=== PATIENT | female | born 1940 | race Caucasian/White ===

== ENCOUNTER 2017-07-26 07:48 | Inpatient (IN) | payer MEDICARE ==
[2017-07-26] VITALS (20 sets, daily range): BP systolic 99–154; BP diastolic 54–79; PULSE 53–91; RESP 11–25; TEMP 91.9–99.3; O2SAT 68–100
[~2017-07-26] VITALS: Ht 167.6 cm; Wt 54.8 kg
[~2017-07-26 07:48] MED LIST: SODIUM BICARBONATE 8.4% INJ 50 MEQ/50 ML SYR IV ONE
[2017-07-26] MEDS ORDERED: SODIUM CHLOR 0.9% 1000 ML INJ 1,000 ML IV SCH (08:14)
[2017-07-26] MEDS ORDERED: SODIUM CHLORIDE 0.9% FLUSH 5 ML FLUSH IV FLUSH PRN (08:15)
--- NOTE | 2017-07-26 08:24 | PD ---
HPI Chief Complaint: Respiratory Symptoms Time Seen by Provider: 07:58 Travel History International Travel<30 days: No Contact w/Intl Traveler<30days: No Traveled to known affect area: No History of Present Illness HPI Diagnoses a 76-year-old female history of dementia, hypertension, hyperlipidemia , coronary artery disease, COPD, presents from the alf with recurrent report of decreased level of consciousness. Per paramedics when they arrived the patient was lethargic and obtunded. They checked her vital signs and found her SPO2 to be 10%. They state they had a good waveform. The placed a nonrebreather on the patient and transported here. The patient is unable to give any history secondary to her dementia. She is obtunded and lethargic. There was no reported fevers or chills. There was no further history given. PFSH Past Medical History Depression: Yes COPD: Yes Coronary Artery Disease: Yes Dementia: Yes Hypertension: Yes Triglycerides - High: Yes Social History Alcohol Use: No Tobacco Use: No Substance Use: No Allergies-Medications (Allergen,Severity, Reaction): Coded Allergies: No Known Allergies (Verified , 07/26/17) Reported Meds & Prescriptions Reported Meds & Active Scripts Active Reported Zoloft (Sertraline HCl) 25 Mg Tab 25 Mg PO DAILY Spiriva Handihaler (Tiotropium Inh) 18 Mcg Cap 18 Mcg INH DAILY 1 capsule = 18 mcg [facility] ([employer] 3 Fatty Swskv-Mugfrx-Ojkcmsygts) 250-2.5-0.5 Mg Cap 1 Cap PO DAILY Cardizem CD 24 HR (Diltiazem CD 24 HR) 240 Mg Caper 240 Mg PO DAILY Aspir-81 (Aspirin) 81 Mg Tabdr 81 Mg PO DAILY Donepezil 10 Mg Tab 10 Mg PO HS Alprazolam 0.5 Mg Tab 0.5 Mg PO Q8H PRN Review of Systems ROS Limitations: Clinical Condition, Altered Mental Status Except as stated in HPI: all other systems reviewed are Neg (unable to obtain further history secondary to the patient's dementia history and obtundation.) Physical Exam Narrative GENERAL: Well-developed well-nourished patient in no acute respiratory distress. SKIN: Focused skin assessment warm/dry. HEAD: Atraumatic. Normocephalic. EYES: No scleral icterus. No injection or drainage. ENT: No nasal bleeding or discharge. Mucous membranes pink and moist. NECK: Trachea midline. Supple. CARDIOVASCULAR: Regular rate and rhythm. No murmur appreciated. RESPIRATORY: Breath sounds equal bilaterally. Auscultated Rales in the left lung field. GASTROINTESTINAL: Abdomen soft, non-tender, nondistended. Hepatic and splenic margins not palpable. MUSCULOSKELETAL: No obvious deformities. No clubbing. No cyanosis. No edema. NEUROLOGICAL: Lethargic and somewhat arousable.. No obvious cranial nerve deficits. Motor grossly within normal limits. Data Data Last Documented VS Vital Signs Date Time Temp Pulse Resp B/P (MAP) Pulse Ox O2 Delivery O2 Flow Rate FiO2 07/26/17 09:05 88 14 118/78 (91) 100 Ventilator 07/26/17 08:40 4.00 07/26/17 08:20 91.9 Orders Orders Complete Blood Count With Diff (07/26/17 08:14) Comprehensive Metabolic Panel (07/26/17 08:14) Creatine Kinase (Cpk) (07/26/17 08:14) Troponin I (07/26/17 08:14) Thyroid Stimulating Hormone (07/26/17 08:14) Urinalysis - C+S If Indicated (07/26/17 08:14) Lactic Acid Sepsis Protocol (07/26/17 08:14) Blood Culture (07/26/17 08:14) Chest, Single Ap (07/26/17 08:14) Blood Glucose (07/26/17 08:14) Ecg Monitoring (07/26/17 08:14) Iv Access Insert/Monitor (07/26/17 08:14) Oximetry (07/26/17 08:14) Sodium Chloride 0.9% Flush (Ns Flush) (07/26/17 08:15) Sodium Chlor 0.9% 1000 Ml Inj (Ns 1000 M (07/26/17 08:14) Ct Brain W/O Iv Contrast(Rout) (07/26/17 08:24) Arterial Blood Gas (Abg) (07/26/17 08:20) Etomidate Inj (Amidate Inj) (07/26/17 09:00) Succinylcholine Inj (Quelicin Inj) (07/26/17 09:00) Propofol 1000 Mg/100 Ml Inj (Diprivan 10 (07/26/17 09:00) ^ Infusion (07/26/17 08:46) RASS (07/26/17 08:46) Neurological Rass Scale SHALA.Q2H (07/26/17 08:46) Urine Culture (07/26/17 08:05) Chest, Single Ap (07/26/17 ) Piperacil-Tazo 4.5 Gm Premix (Zosyn 4.5 (07/26/17 08:58) Azithromycin Inj (Zithromax Inj) (07/26/17 08:58) Cath For Specimen (07/26/17 09:00) Warming [place] / Warming Syst PRN (07/26/17 09:00) Davey-Gastric Tube Insert/Mon (07/26/17 09:00) Restraints Non-Violent SHALA.Q3H (07/26/17 09:00) Admit Order (Ed Use Only) (07/26/17 09:48) Labs Laboratory Tests Test 07/26/17 08:05 07/26/17 08:20 White Blood Count 12.5 TH/MM3 Red Blood Count 4.72 MIL/MM3 Hemoglobin 14.4 GM/DL Hematocrit 46.1 % Mean Corpuscular Volume 97.6 FL Mean Corpuscular Hemoglobin 30.6 PG Mean Corpuscular Hemoglobin Concent 31.3 % Red Cell Distribution Width 15.6 % Platelet Count 312 TH/MM3 Mean Platelet Volume 8.7 FL Neutrophils (%) (Auto) 76.6 % Lymphocytes (%) (Auto) 11.7 % Monocytes (%) (Auto) 10.4 % Eosinophils (%) (Auto) 0.4 % Basophils (%) (Auto) 0.9 % Neutrophils # (Auto) 9.6 TH/MM3 Lymphocytes # (Auto) 1.5 TH/MM3 Monocytes # (Auto) 1.3 TH/MM3 Eosinophils # (Auto) 0.0 TH/MM3 Basophils # (Auto) 0.1 TH/MM3 CBC Comment DIFF FINAL Differential Comment Urine Color YELLOW Urine Turbidity HAZY Urine pH 5.5 Urine Specific [place] 1.018 Urine Protein 30 mg/dL Urine Glucose (UA) 300 mg/dL Urine Ketones NEG mg/dL Urine Occult Blood NEG Urine Nitrite NEG Urine Bilirubin NEG Urine Urobilinogen LESS THAN 2.0 MG/DL Urine Leukocyte Esterase MOD Urine RBC LESS THAN 1 /hpf Urine WBC 12 /hpf Urine WBC Clumps FEW Urine Squamous Epithelial Cells 1 /hpf Urine Transitional Epithelial Cells <1 /hpf Urine Amorphous Sediment FEW Urine Bacteria OCC /hpf Microscopic Urinalysis Comment CATH-CULTURE IND Blood Urea Nitrogen 27 MG/DL Creatinine 1.41 MG/DL Random Glucose 323 MG/DL Total Protein 7.8 GM/DL Albumin 3.4 GM/DL Calcium Level 8.8 MG/DL Alkaline Phosphatase 90 U/L Aspartate Amino Transf (AST/SGOT) 54 U/L Alanine Aminotransferase (ALT/SGPT) 40 U/L Total Bilirubin 0.4 MG/DL Sodium Level 137 MEQ/L Potassium Level 4.6 MEQ/L Chloride Level 99 MEQ/L Carbon Dioxide Level 25.5 MEQ/L Anion Gap 13 MEQ/L Estimat Glomerular Filtration Rate 36 ML/MIN Lactic Acid Level 5.6 mmol/L Total Creatine Kinase 91 U/L Troponin I 0.07 NG/ML Thyroid Stimulating Hormone 3rd Gen 1.530 uIU/ML Blood Gas Puncture Site LT RADIAL Blood Gas Patient Temperature 98.6 Blood Gas HCO3 32 mmol/L Blood Gas Base Excess 1.3 mmol/L Blood Gas Oxygen Saturation 92 % Arterial Blood pH 7.04 Arterial Blood Partial Pressure CO2 122 mmHg Arterial Blood Partial Pressure O2 95 mmHG Arterial Blood Oxygen Content 18.1 Vol % Arterial Blood Carboxyhemoglobin 0.8 % Arterial Blood Methemoglobin 0.7 % Blood Gas Hemoglobin 13.9 G/DL Oxygen Delivery Device NASAL CANNULA Blood Gas Liter Flow 4 L/M MDM Medical Decision Making Medical Screen Exam Complete: Yes Emergency Medical Condition: Yes Differential Diagnosis Sepsis versus pneumonia versus COPD versus pulmonary embolus versus intracranial injury Narrative Course 76-year-old female with history of dementia, hypertension, hyperlipidemia, COPD , presents from the alf with decreased level of consciousness. The patient was lethargic and obtunded. Report was her O2 saturation was 10 when paramedics arrived. They placed her on 100% nonrebreather. When she arrived here she was 98-99%. She was taken off the nonrebreather and placed on a nasal cannula. Blood gas reveals a pH of 7.041. PCO2 was 122 and PO2 was 94.5. Total temperature on arrival was 91.8. She is placed on a bear hugger. Warm IVD fluids were initiated. She was intubated secondary to her blood gas and clinical condition. She's been started on Zosyn and azithromycin. Her urinalysis shows evidence of a UTI and her chest x-ray shows probable pneumonia. Should be admitted to the intensive care unit. There is a call out to the photographic spotter. Critical Care Narrative Aggregate critical care time was 60 minutes. Time to perform other separately billable procedures was not included in the critical care time. My time did not include minutes spent treating any other patients simultaneously or on activities that did not directly contribute to the patient's treatment. The services I provided to this patient were to treat and/or prevent clinically significant deterioration that could result in: I provided critical care services requiring my management, as noted below: Chart data review, documentation time, medication orders and management, vital sign assessments/reviewing monitor data, ordering and reviewing lab tests, ordering and interpreting/reviewing x-rays and diagnostic studies, care of the patient and discussion of the patient with the admitting physicians. Procedures Procedure Narrative After the risks and benefits were discussed the following procedure was performed: INTUBATION: The patient was put in optimal position for the procedure. Rapid sequence intubation was initiated by me using 20 milligrams of etomidate IV and 100 milligrams of succinylcholine IV. The patient was intubated with a 7.5 cuffed endotracheal tube. Tube placement was confirmed by visualization of the tube and balloon passing through the cords, capnometry and subsequent chest x- ray. Breath sounds were equal and well aerated bilaterally postintubation. No breath sounds over stomach. Patient tolerated procedure well. Sepsis Criteria SIRS Criteria (2 or more): Temp > 100.9 or < 96.8 Sepsis Criteria (SIRS+source): Infect source susp/known Severe Sepsis (+one): Lactate >2, Acute Oliguria/Renal Failure Septic Shock Criteria: Lactic acid >=4 Criteria Outcome: Meets severe sepsis criteria Diagnosis Primary Impression: Respiratory failure with hypercapnia Additional Impressions: Sepsis Pneumonia Urinary tract infection Acute kidney injury Hyperglycemia Hypothermia Admitting Information Admitting Physician Requests: Admit Eddie Gao MD Jul 26, 2017 08:24
[2017-07-26 08:34] LABS: BLOOD GAS BASE EXCESS 1.3 mmol/L (-2-2); BLOOD GAS CARBOXYHEMOGLOBIN 0.8 % (0-4); BLOOD GAS HCO3 32 mmol/L (22-26); BLOOD GAS METHEMOGLOBIN 0.7 % (0-2); BLOOD GAS O2 HGB SATURATION 92 % (90-100); BLOOD GAS OXYGEN CONTENT 18.1 Vol % (12.0-20.0); BLOOD GAS PO2 95 mmHG (61-120); BLOOD GAS TOTAL HGB 13.9 G/DL (12.0-16.0); TEMP CORR TO 98.6
[2017-07-26 08:35] LABS: BLOOD GAS PCO2 122 mmHg (38-42); CRITICAL VALUE YES; DRAW SITE LT RADIAL; LITER FLOW 4 L/M; NUMBER OF ARTERIAL PUNCTURES 1; OXYGEN DEVICE NASAL CANNULA; STAT YES; ULNAR PULSE PRESENT
--- NOTE | 2017-07-26 08:36 | RADRPT ---
EXAM DATE/TIME: 07/26/2017 08:29 [facility] COMPARISON: No previous studies available for comparison. INDICATIONS : Shortness of breath, altered mental status. MEDICAL HISTORY : None. SURGICAL HISTORY : None. ENCOUNTER: Initial ACUITY: 1 day PAIN SCORE: Non-responsive. LOCATION: Bilateral chest FINDINGS: Focal patchiness is noted within the left lung base and to a lesser extent right lung base. Bibasila r patchiness is noted consistent with possible atelectasis and/or pneumonia. Clinical correlation is recommended. The heart is enlarged. CONCLUSION: 1. Scattered bibasilar patchiness consistent with atelectasis and/or pneumonia. Clinical correlatio n is recommended. 2. Cardiomegaly. John Ferris MD on July 26, 2017 at 8:27 Board Certified Radiologist. This report was verified electronically.
[2017-07-26 08:39] LABS: AUTOMATED NEUTROPHIL # 9.6 TH/MM3 (1.8-7.7); BASOPHIL # 0.1 TH/MM3 (0-0.2); BASOPHIL % 0.9 % (0.0-2.0); EOSINOPHIL % 0.4 % (0.0-4.0); HEMATOCRIT 46.1 % (35.0-46.0); HEMO FLAGS DIFF FINAL; LYMPH % 11.7 % (9.0-44.0); LYMPHOCYTE # 1.5 TH/MM3 (1.0-4.8); MEAN CELL VOLUME 97.6 FL (80.0-100.0); MEAN CORPUSCULAR HEMOGLOBIN 30.6 PG (27.0-34.0); MEAN CORPUSCULAR HGB CONC 31.3 % (32.0-36.0); MONO % 10.4 % (0.0-8.0); NEUT % 76.6 % (16.0-70.0); PLATELET COUNT 312 TH/MM3 (150-450); RED BLOOD COUNT 4.72 MIL/MM3 (4.00-5.30); RED CELL DISTRIBUTION WIDTH 15.6 % (11.6-17.2); WHITE BLOOD COUNT 12.5 TH/MM3 (4.0-11.0)
[2017-07-26] MEDS ORDERED: ALPR0.5T3 PO (08:44)
[2017-07-26] MEDS ORDERED: ASPI81TA81 PO (08:44)
[2017-07-26] MEDS ORDERED: CARD240C6 PO (08:44)
[2017-07-26] MEDS ORDERED: SPIRCAP INH (08:44)
[2017-07-26] MEDS ORDERED: OMEGCAP29 PO (08:44)
[2017-07-26] MEDS ORDERED: ZOLO25TA PO (08:44)
[2017-07-26] MEDS ORDERED: DONE10TA7 PO (08:44)
[2017-07-26 08:48] LABS: BACTERIA, URINE OCC /hpf; BLOOD, URINE NEG (NEG); GLUCOSE,URINE 300 mg/dL (NEG); KETONE, URINE NEG (NEG); NITRITE,URINE NEG (NEG); PH, URINE 5.5 (5.0-8.5); SQUAMOUS EPITHELIAL CELL URINE 1 /hpf (0-5); TRANSITIONAL EPI CELLS, URINE <1 /hpf; URINE COLOR YELLOW (YELLW/STRAW)
[2017-07-26 08:49] LABS: COMMENT (UR) CATH-CULTURE IND; CULTURE IF INDICATED CATH CULTURE IND
[2017-07-26] MEDS ORDERED: AZITHROMYCIN INJ 500 MG in SODIUM CHLOR 0.9% 250 ML INJ 250 ML IV STA (08:58)
[2017-07-26] MEDS ORDERED: PIPERACIL-TAZO 4.5 GM PREMIX 100 ML IV STA (08:58)
[2017-07-26] MEDS ORDERED: ETOMIDATE 20 MG/10 ML VIAL IVP ONE (09:00)
[2017-07-26] MEDS ORDERED: SUCCINYLCHOLINE CHLORIDE 200 MG/10 ML VIAL IV PUSH ONE (09:00)
[2017-07-26] MEDS: PROPOFOL 1000 MG/100 ML INJ 100 ML IV PRN ×2 (09:00→17:15)
--- NOTE | 2017-07-26 09:24 | RADRPT ---
EXAM DATE/TIME: 07/26/2017 09:12 [facility] COMPARISON: CHEST SINGLE AP, July 26, 2017, 8:29. INDICATIONS : Post intubation, evaluate positon of ET tube MEDICAL HISTORY : altered mental status SURGICAL HISTORY : None. ENCOUNTER: Subsequent ACUITY: 1 day PAIN SCORE: Non-responsive. LOCATION: Bilateral chest FINDINGS: ETT is at the level of the clavicles. Redemonstration of the bibasilar streaky opacities. Cardiomedia stinal contours are stable. Remainder of exam is unchanged. CONCLUSION: 1. ETT in good position. 2. Stable scattered bibasilar streaky opacities consistent with atelectasis or developing infection/a spiration in neutropenic clinical setting. Alejandro Bergman MD on July 26, 2017 at 9:21 Board Certified Radiologist. This report was verified electronically.
[2017-07-26 09:33] LABS: ANION GAP 13 MEQ/L (5-15); AST (GOT) 54 U/L (15-37); BICARBONATE 25.5 MEQ/L (21.0-32.0); BLOOD UREA NITROGEN 27 MG/DL (7-18); CHLORIDE 99 MEQ/L (98-107); GLOMERULAR FILTRATION RATE 36 ML/MIN (>89); POTASSIUM 4.6 MEQ/L (3.5-5.1); SODIUM (NA) 137 MEQ/L (136-145)
--- NOTE | 2017-07-26 09:45 | RADRPT ---
EXAM DATE/TIME: 07/26/2017 09:14 [facility] COMPARISON: No previous studies available for comparison. INDICATIONS : Altered mental status. RADIATION DOSE: 33.99 CTDIvol (mGy) MEDICAL HISTORY : Hypertension. Cardiovascular disease Dementia. SURGICAL HISTORY : None. ENCOUNTER: Initial ACUITY: 1 day PAIN SCALE: 0/10 LOCATION: cranial TECHNIQUE: Multiple contiguous axial images were obtained of the head. Using automated exposure control and adj ustment of the mA and/or kV according to patient size, radiation dose was kept as low as reasonably a chievable to obtain optimal diagnostic quality images. DICOM format image data is available electro nically for review and comparison. FINDINGS: CEREBRUM: The ventricles are normal for age. No evidence of midline shift, mass lesion, hemorrhage or acute in farction. No extra-axial fluid collections are seen. POSTERIOR FOSSA: The cerebellum and brainstem are intact. The 4th ventricle is midline. The cerebellopontine angle i s unremarkable. EXTRACRANIAL: The visualized portion of the orbits is intact. SKULL: The calvaria is intact. No evidence of skull fracture. CONCLUSION: 1. No evidence of acute intracranial pathology. No masses are identified.8 Sukhjinder Bhakta MD on July 26, 2017 at 9:42 Board Certified Radiologist. This report was verified electronically.
[2017-07-26 09:47] LABS: ALKALINE PHOSPHATASE 90 U/L (45-117); ALT (GPT) 40 U/L (10-53); TOTAL BILIRUBIN ADULT 0.4 MG/DL (0.2-1.0)
[2017-07-26 09:49] LABS: CREATINE KINASE 91 U/L (26-192)
[2017-07-26] MEDS ORDERED: SENNOSIDES 8.6 MG TAB PO PRN (10:00)
[2017-07-26] MEDS ORDERED: MISCELLANEOUS NURSING INFORMATION XX SCH (10:00)
[2017-07-26] MEDS ORDERED: MAGNESIUM OXIDE 400 MG TAB PO PRN ×2 (10:00→13:30)
[2017-07-26] MEDS ORDERED: LACTULOSE SYRUP 20 GM/30 ML CUP PO PRN (10:00)
[2017-07-26] MEDS ORDERED: VANCOMYCIN INJ 1,200 MG in SODIUM CHLOR 0.9% 250 ML INJ 250 ML IV ONE (10:00)
[2017-07-26] MEDS ORDERED: SODIUM PHOSPHATE INJ 30 MMOL in SODIUM CHLOR 0.9% 250 ML INJ 240 ML IV PRN ×2 (10:00→13:30)
[2017-07-26] MEDS ORDERED: CHLORHEXIDINE GLUCONATE 2 % 1 PACK (2 CLOTHS) TOP PRN (10:00)
[2017-07-26] MEDS ORDERED: RESP: ALBUTEROL 2.5 MG/IPRATROPIUM 0.5 MG NEB (PRN) INH (10:00)
[2017-07-26] MEDS ORDERED: POTASSIUM PHOSPHATE MONOBASIC 500 MG TAB PO/TUBE PRN ×2 (10:00→13:30)
[2017-07-26] MEDS ORDERED: POTASSIUM CHLOR 40 MEQ PREMIX 100 ML IV PRN ×4 (10:00→13:30)
[2017-07-26] MEDS ORDERED: MAGNESIUM SULFATE INJ 4 GM in SODIUM CHLORIDE 0.9% INJ 92 ML IV PRN ×2 (10:00→13:30)
[2017-07-26] MEDS ORDERED: MAGNESIUM SULFATE INJ 2 GM in SODIUM CHLORIDE 0.9% INJ 96 ML IV PRN ×2 (10:00→13:30)
[2017-07-26] MEDS ORDERED: MAGNESIUM HYDROXIDE SUSP 30 ML CUP PO PRN (10:00)
[2017-07-26] MEDS ORDERED: BISACODYL 10 MG SUPP RECTAL PRN (10:00)
[2017-07-26] MEDS ORDERED: POTASSIUM PHOSPHATE MONOBASIC 500 MG TAB PO PRN ×2 (10:00→13:30)
[2017-07-26] MEDS ORDERED: Vancomycin Consult Pharmacy 1 EA OTHER SCH (10:00)
[2017-07-26] MEDS ORDERED: POTASSIUM CHLOR 20 MEQ PREMIX 100 ML IV PRN ×4 (10:00→13:30)
[2017-07-26] MEDS ORDERED: DEXTROSE 50% IN WATER 50 ML VIAL(D50) IV PUSH PRN (10:00)
[2017-07-26] MEDS ORDERED: POTASSIUM PHOSPHATE INJ 30 MMOL in SODIUM CHLOR 0.9% 250 ML INJ 250 ML IV PRN ×2 (10:00→13:30)
[2017-07-26 10:32] LABS: LACTIC ACID GHOST NOT REPORTABLE
[2017-07-26] MEDS: MIDAZOLAM HCL 5 MG/ML VIAL (1 ML) ONE ×2 (10:54→10:58)
[2017-07-26] MEDS ORDERED: MIDAZOLAM HCL 5 MG/5 ML VIAL IV PUSH ONE (11:00)
[2017-07-26] MEDS ORDERED: fentaNYL DRIP 250 ML IV PRN (11:00)
[2017-07-26] MEDS: INSULIN NovoLIN REGULAR SUPPLEMENTAL SCALE SQ SCH ×2 (12:00→18:00)
[2017-07-26] MEDS ORDERED: ATROPINE SULFATE 1 MG/10 ML SYRINGE ONE (12:03)
[2017-07-26] MEDS ORDERED: CALCIUM CHLORIDE 10% SOLN 1 GRAM/10 ML SYR ONE (12:06)
[2017-07-26] MEDS ORDERED: EPINEPHrine HCL (1:10,000) 1 MG/10 ML SYRINGE ONE (12:06)
--- NOTE | 2017-07-26 12:18 | EKG ---
Date Performed: 07/26/2017 Time Performed: 07:53:45 PTAGE: 76 years EKG: Sinus rhythm WITH OCCASIONAL SUPRAVENTRICULAR PREMATURE COMPLEXES POSSIBLE RIGHT VENTRICULAR CONDUCTION DELAY NON SPECIFIC T-WAVE ABNORMALITY BORDERLINE ECG NO PREVIOUS TRACING DOCTOR: Sukhjinder Garrido Interpretating Date/Time 07/26/2017 12:13:41
[2017-07-26] MEDS: HEPARIN SODIUM - SQ 10,000 UNITS/ML VIAL SQ SCH ×2 (12:24→21:47)
[2017-07-26] MEDS: VANCOMYCIN 1,000 MG/NS 250 ML IV SCH ×2 (12:24)
--- NOTE | 2017-07-26 12:31 | HHI.HP ---
[facility] Service Critical Care Medicine Primary Care Physician Camden Cole M.D. Admission Diagnosis respiratory failure with hypercapnia, sepsis, pneumonia, UTI, hyperg Diagnosis: (1) Acute hypercapnic respiratory failure Diagnosis: Principal (2) Septic shock Diagnosis: Principal (3) HCAP (healthcare-associated pneumonia) Diagnosis: Principal (4) Urinary tract infection Diagnosis: Principal (5) Acute kidney injury Diagnosis: Principal (6) Hyperglycemia Diagnosis: Principal (7) Hypothermia Diagnosis: Principal (8) Acute encephalopathy Diagnosis: Principal Chief Complaint: Septic shock Respiratory failure Travel History International Travel<30 Days: No Contact w/Intl Traveler <30 Da: No Traveled to Known Affected Are: No Sepsis Criteria SIRS Criteria (2 or more): Temp > 100.9 or < 96.8, WBC > 22850, < 4000 or > 10 % bands Sepsis Criteria (SIRS+source): Infect source susp/known Severe Sepsis (+one): Acute Oliguria/Renal Failure Septic Shock Criteria: Lactic acid >=4 Criteria Outcome: Meets septic shock criteria History of Present Illness All history is obtained from ED chart review. Patient is intubated sedated. Patient is a 76-year-old female history of dementia, hypertension, hyperlipidemia, coronary artery disease, COPD, [facility] of [facility]. Paramedics found her lethargic and obtunded, hypoxemic. She was placed on NRB placed a nonrebreather and brought to the ED. In the ED patient was unresponsive, SaO2 98-99%. She was taken off the nonrebreather and placed on a nasal cannula. ABG- pH of 7.041. PCO2 was 122 and PO2 was 94.5. Temp was 91.8 and Patient was placed on warming blanket, warm IVD fluids were initiated. She was intubated for severe hypercapnic respiratory failure. Her urinalysis shows evidence of a UTI and her chest x-ray shows probable pneumonia. Received Zosyn and azithromycin. Lactate was 5.6. [facility] requested to admit I evaluated the patent immediately in ICU. Patient was severely bradycardic, HR in mid 20s and blood pressure was not recordable, but had palpable pulse. No response to atropine. I ordered 0.5 mg epinephrine, IVF 3L boluses and Levophed started. Patients BP improved with above measures and I placed an emergent L subclavian central line. Her home medications and hypercapnic resp failure indicated COPD exacerbation in addition to septic shock. I have started IV steroids and will continue Vanc and Zosyn, scheduled and PRN DuoNeb. Also Minute ventilation adjusted to correct hypercapnia and severe acidosis Review of Systems ROS Limitations: Intubated, Altered Mental Status Past Family Social History Allergies: Coded Allergies: No Known Allergies (Verified , 07/26/17) Past Medical History Dementia COPD Hypertension Hyperlipidemia Coronary artery disease Past Surgical History Unable to obtain Reported Medications Zoloft (Sertraline HCl) 25 Mg Tab 25 Mg PO DAILY Spiriva Handihaler (Tiotropium Inh) 18 Mcg Cap 18 Mcg INH DAILY [facility] ([place] 3 Fatty Mtmco-Kgbzmq-Silldewjaj) 250-2.5-0.5 Mg Cap 1 Cap PO DAILY Cardizem CD 24 HR (Diltiazem CD 24 HR) 240 Mg Caper 240 Mg PO DAILY Aspir-81 (Aspirin) 81 Mg Tabdr 81 Mg PO DAILY Donepezil 10 Mg Tab 10 Mg PO HS Alprazolam 0.5 Mg Tab 0.5 Mg PO Q8H PRN Active Ordered Medications Reviewed Family History Unable to obtain Social History Unable to obtain Physical Exam Vital Signs Vital Signs Date Time Temp Pulse Resp B/P (MAP) Pulse Ox O2 Delivery O2 Flow Rate FiO2 07/26/17 12:17 92 100 07/26/17 12:00 07/26/17 11:00 96.4 74 14 114/71 (85) 97 07/26/17 10:00 88 14 133/65 (87) 99 07/26/17 09:35 86 14 110/54 (72) 99 07/26/17 09:20 96 100 07/26/17 09:05 88 14 118/78 (91) 100 Ventilator 07/26/17 08:40 18 94 Nasal Cannula 4.00 07/26/17 08:20 91.9 07/26/17 08:20 91.9 07/26/17 07:48 85 24 154/70 (98) 99 Physical Exam GENERAL: Well-developed well-nourished patient intubated sedated, profoundly hypotensive, unresponsive SKIN: Cold/dry. HEAD: Atraumatic. Normocephalic. EYES: No scleral icterus. No injection or drainage. ENT: Mucous membranes dry. Orotracheally intubated NECK: Trachea midline. Supple. CARDIOVASCULAR: Regular rate and rhythm. No murmur appreciated. In severe shock getting actively resuscitated RESPIRATORY: Breath sounds equal bilaterally. Bilateral rales and scattered rhonchi GASTROINTESTINAL: Abdomen soft, non-tender, nondistended. Hepatic and splenic margins not palpable. MUSCULOSKELETAL: No obvious deformities. No clubbing. No cyanosis. No edema. NEUROLOGICAL: Intubated sedation, held, lethargic encephalopathic. Weakly moving extremities Laboratory Laboratory Tests Test 07/26/17 08:05 07/26/17 08:20 07/26/17 11:00 White Blood Count 12.5 Red Blood Count 4.72 Hemoglobin 14.4 Hematocrit 46.1 Mean Corpuscular Volume 97.6 Mean Corpuscular Hemoglobin 30.6 Mean Corpuscular Hemoglobin Concent 31.3 Red Cell Distribution Width 15.6 Platelet Count 312 Mean Platelet Volume 8.7 Neutrophils (%) (Auto) 76.6 Lymphocytes (%) (Auto) 11.7 Monocytes (%) (Auto) 10.4 Eosinophils (%) (Auto) 0.4 Basophils (%) (Auto) 0.9 Neutrophils # (Auto) 9.6 Lymphocytes # (Auto) 1.5 Monocytes # (Auto) 1.3 Eosinophils # (Auto) 0.0 Basophils # (Auto) 0.1 CBC Comment DIFF FINAL Differential Comment Urine Color YELLOW Urine Turbidity HAZY Urine pH 5.5 Urine Specific [place] 1.018 Urine Protein 30 Urine Glucose (UA) 300 Urine Ketones NEG Urine Occult Blood NEG Urine Nitrite NEG Urine Bilirubin NEG Urine Urobilinogen LESS THAN 2.0 Urine Leukocyte Esterase MOD Urine RBC LESS THAN 1 Urine WBC 12 Urine WBC Clumps FEW Urine Squamous Epithelial Cells 1 Urine Transitional Epithelial Cells <1 Urine Amorphous Sediment FEW Urine Bacteria OCC Microscopic Urinalysis Comment CATH-CULTURE IND Blood Urea Nitrogen 27 Creatinine 1.41 Random Glucose 323 Total Protein 7.8 Albumin 3.4 Calcium Level 8.8 Alkaline Phosphatase 90 Aspartate Amino Transf (AST/SGOT) 54 Alanine Aminotransferase (ALT/SGPT) 40 Total Bilirubin 0.4 Sodium Level 137 Potassium Level 4.6 Chloride Level 99 Carbon Dioxide Level 25.5 Anion Gap 13 Estimat Glomerular Filtration Rate 36 Lactic Acid Level 5.6 4.8 Total Creatine Kinase 91 Troponin I 0.07 Thyroid Stimulating Hormone 3rd Gen 1.530 Blood Gas Puncture Site LT RADIAL Blood Gas Patient Temperature 98.6 Blood Gas HCO3 32 Blood Gas Base Excess 1.3 Blood Gas Oxygen Saturation 92 Arterial Blood pH 7.04 Arterial Blood Partial Pressure CO2 122 Arterial Blood Partial Pressure O2 95 Arterial Blood Oxygen Content 18.1 Arterial Blood Carboxyhemoglobin 0.8 Arterial Blood Methemoglobin 0.7 Blood Gas Hemoglobin 13.9 Oxygen Delivery Device NASAL CANNULA Blood Gas Liter Flow 4 Date/Time Source Procedure Growth Status 07/26/17 08:15 Blood Peripheral Aerobic Blood Culture Pending Received 07/26/17 08:15 Blood Peripheral Anaerobic Blood Culture Pending Received 07/26/17 11:35 Sputum Endotracheal Gram Stain Pending Received 07/26/17 11:35 Sputum Endotracheal Sputum Culture Pending Received 07/26/17 08:05 Urine Catheterized Urine Urine Culture Pending Received Result Diagram: 07/26/1780407/26/17804 Imaging CXR bilateral patchy infiltrates Septic Shock Reassessment Heart: Regular rate and rhythm Lungs: Course Skin: Cold Peripheral Pulses: Weak Right Radial Weak Left Radial Caprini VTE Risk Assessment Caprini VTE Risk Assessment: Mod/High Risk (score >= 2) Caprini Risk Assessment Model Point Value = 1 Point Value = 2 Point Value = 3 Point Value = 5 Age 41-60 Minor surgery BMI > 25 kg/m2 Swollen legs Varicose veins or History of unexplained or recurrent spontaneous Oral contraceptives or hormone replacement Sepsis (< 1 month) Serious lung disease, including pneumonia (< 1 month) Abnormal pulmonary function Acute myocardial infarction Congestive heart failure (< 1 month) History of inflammatory bowel disease Medical patient at bed rest Age 61-74 Arthroscopic surgery Major open surgery (> 45 min) Laparoscopic surgery (> 45 min) Malignancy Confined to bed (> 72 hours) Immobilizing plaster cast Central venous access Age >= 75 History of VTE Family history of VTE Factor V Leiden Prothrombin [id number] Lupus anticoagulant Anticardiolipin antibodies Elevated serum homocysteine Heparin-induced thrombocytopenia Other congenital or acquired thrombophilia Stroke (< 1 month) Elective arthroplasty Hip, pelvis, or leg fracture Acute spinal cord injury (< 1 month) Prophylaxis Regimen Total Risk Factor Score Risk Level Prophylaxis Regimen 0-1 Low Early ambulation 2 Moderate Order ONE of the following: *Sequential Compression Device (SCD) *Heparin 5000 units SQ BID 3-4 Higher Order ONE of the following medications: *Heparin 5000 units SQ TID *Enoxaparin/Lovenox 40 mg SQ daily (WT < 150 kg, CrCl > 30 mL/min) *Enoxaparin/Lovenox 30 mg SQ daily (WT < 150 kg, CrCl > 10-29 mL/min) *Enoxaparin/Lovenox 30 mg SQ BID (WT < 150 kg, CrCl > 30 mL/min) AND/OR *Sequential Compression Device (SCD) 5 or more Highest Order ONE of the following medications: *Heparin 5000 units SQ TID (Preferred with Epidurals) *Enoxaparin/Lovenox 40 mg SQ daily (WT < 150 kg, CrCl > 30 mL/min) *Enoxaparin/Lovenox 30 mg SQ daily (WT < 150 kg, CrCl > 10-29 mL/min) *Enoxaparin/Lovenox 30 mg SQ BID (WT < 150 kg, CrCl > 30 mL/min) AND *Sequential Compression Device (SCD) Assessment and Plan Assessment and Plan NEURO: Acute metabolic encephalopathy/CO2 narcosis History of dementia - Propofol for sedation and ventilator synchrony - Start daily sedation vacation once clinically improved RESP: Acute hypoxemic and hypercarbic respiratory failure Healthcare associated pneumonia Acute COPD exacerbation - ACV RR 20 TV 500 PEEP 10 FiO2 60% - Repeat ABG in the 1 hour - DuoNeb every 6 hours and when necessary - IV Solu-Medrol 60 mg every 8 hours - Broad-spectrum antibiotics with vancomycin and Zosyn CV: Septic shock Severe bradycardia Lactic acidosis - Normal saline IV fluids 3 L bolus and 125 ml per hour - Trend lactic acid - Patient required epinephrine and atropine push for severe bradycardia and hypotension now resolved - Severe bradycardia hypotension most likely from severe acidemia - Levophed as needed to keep map above 65 GI: - Nothing by mouth, IV famotidine : Acute kidney injury - Monitor renal function closely. Mcnulty catheter. Renal failure secondary to sepsis and dehydration ID: Septic shock Healthcare associated pneumonia UTI - Continue vancomycin and Zosyn renally dosed - Follow-up on blood urine and sputum culture - Trend lactic acid HEME: - Monitor CBC, CMP, coags ENDO: Hyperglycemia - Sliding-scale insulin, check hemoglobin A1c - Electrolyte Replacement per protocol PROPH: - Bilateral lower extremity SCDs. Subcutaneous heparin, IV famotidine LINES: - Right subclavian central line placed CC time 82 min excluding procedures Code Status Full Problem Qualifiers (1) Urinary tract infection: (2) Hypothermia: Qualified Codes: T68.XXXA - Hypothermia, initial encounter Pamela Lomas MD Jul 26, 2017 12:31
--- NOTE | 2017-07-26 12:45 | PD.PROCEDR ---
Central Line Procedure REASON FOR PROCEDURE Central venous access PROCEDURE PERFORMED Central line placement: Right subclavian central line CONSENT Emergency procedure, severe septic shock ANESTHESIA Local injection of 1% Lidocaine DESCRIPTION OF THE PROCEDURE The patient was placed in supine, mild Trendelenburg position. The area was exposed and cleansed with ChloraPrep, times two. Large sterile drape was used to cover the patient, with the site exposed, under sterile conditions including cap, face mask, sterile gown, and sterile gloves. On single attempt, the introducer needle was inserted with negative pressure in syringe and venous flash was obtained. The guide wire was then advanced without any restriction and the needle was removed. The dilator was used without any complications. Using Seldinger technique the 20 CM 7F catheter was advanced over the guide wire to a depth of 18 centimeters. The guide wire was removed. All ports were aspirated with dark venous blood return and flushed easily with sterile saline. All ports were capped. Antibiotic disc was placed around central line at puncture site. The central line was secured to the skin with two interrupted 2.0 silk sutures. The area was bandaged with sterile see-through central line bandage. COMPLICATIONS: No apparent complications ESTIMATED BLOOD LOSS: Less than 1 cc. Pamela Lomas MD Jul 26, 2017 12:45
--- NOTE | 2017-07-26 12:54 | PD.CONS ---
Consult Service Palliative Care Consult Requested By Dr. Pringle Primary Care Physician Camden Cole M.D. Reason for Consultation a. To assist with evaluation and management of symptoms including:dyspnea b. To assist medical decision maker(s) with: better understanding of current medical conditions; weighing benefits/burdens of medical treatment options; making medical treatment decisions. HPI History of Present Illness Patient is a 76-year-old with a past medical history of dementia, hypertension, hyperlipidemia, CAD, COPD and transferred to the longterm on 07/26/2017 due to decreased level of consciousness. Patient was found lethargic and obtunded on paramedics arrival and SPO2 was said to be 10%. Patient was transferred to the hospital. Not much further history could be ascertained from patient due to level of obtundation. * Temperature is 91.9, pulse is 85, respirations 24, blood pressure is 154/70, pulse ox 99% * WBC 12.5, hemoglobin 14.4, hematocrit 46.1, platelet 312 * Sodium is 137, potassium is 4.6, chloride is 99, bicarbonate 25.5, BUN is 27, creatinine is 1.4 * Lactic acid is 5.6 * AST is 54, ALT is 40, alkaline phosphatase is 90, troponin I is 0.07 * UA shows few WBC clumps, urine glucose of 300, leukocyte esterase is moderate , catheter culture indicated improvement * Sputum culture pending, blood culture pending. * Patient is started on Zosyn and azithromycin. Patient was placed on bear hugger due to hypothermia. Patient was intubated as blood gas reveals pH of 7.04 and PCO2 is 122. * Pt was transferred to icu for respiratory failure, pneumonia, uti, sepsis. Palliative Care was consulted to review goals of care. On my visit pt was intubated and sedated, unable to elicit history. Function/Cognitive Trajectory Unable to get too much of a history. Sister lives in [place] and does not know much about her sitiation. Last time she spoke with her was December, and she is not sure if she recognized her or not. Review of Systems ROS Limitations: Clinical Condition Respiratory: COMPLAINS OF: Shortness of breath Psychiatric: COMPLAINS OF: Confusion Past Family Social History Coded Allergies: No Known Allergies (Verified , 07/26/17) Past Medical History dementia, hypertension, hyperlipidemia, CAD, COPD, depression Past Surgical History unknown Reported Medications Zoloft (Sertraline HCl) 25 Mg Tab 25 Mg PO DAILY Spiriva Handihaler (Tiotropium Inh) 18 Mcg Cap 18 Mcg INH DAILY 1 capsule = 18 mcg [facility] (Nada 3 Fatty Goeac-Wghrde-Cxyisvpkxw) 250-2.5-0.5 Mg Cap 1 Cap PO DAILY Cardizem CD 24 HR (Diltiazem CD 24 HR) 240 Mg Caper 240 Mg PO DAILY Aspir-81 (Aspirin) 81 Mg Tabdr 81 Mg PO DAILY Donepezil 10 Mg Tab 10 Mg PO HS Alprazolam 0.5 Mg Tab 0.5 Mg PO Q8H MN Current Medications Medications (Trade) Dose Ordered Sig/Lili Route Start Time Stop Time Status Last Admin (NS Flush) 2 ml UNSCH PRN IV FLUSH 07/26/17 08:15 Sodium Chloride 1,000 ml @ 125 mls/hr Q8H IV 07/26/17 08:14 07/26/17 16:13 07/26/17 08:40 Propofol 100 ml @ 1.8 mls/hr TITRATE PRN IV 07/26/17 09:00 07/26/17 09:00 Pharmacy Profile Note 0 ml @ 0 mls/hr UNSCH OTHER 07/26/17 10:00 (Duoneb Neb) 1 ampule Q6HR NEB INH 07/26/17 11:00 (Duoneb Neb) 1 ampule Q2HR NEB PRN INH 07/26/17 10:00 (D50w (Vial) Inj) 25 ml UNSCH PRN IV PUSH 07/26/17 10:00 (NovoLIN R SUPPLEMENTAL SCALE) 1 Q6HR SQ 07/26/17 12:00 (Peridex 0.12% Liq) 15 ml BID@08,20 MT 07/26/17 20:00 (Mag-Ox) 800 mg UNSCH PRN PO 07/26/17 10:00 Magnesium Sulfate 4 gm/Sodium Chloride 100 ml @ 50 mls/hr UNSCH PRN IV 07/26/17 10:00 Magnesium Sulfate 2 gm/Sodium Chloride 100 ml @ 50 mls/hr UNSCH PRN IV 07/26/17 10:00 Potassium Chloride 100 ml @ 50 mls/hr Q2H PRN IV 07/26/17 10:00 Potassium Chloride 100 ml @ 50 mls/hr Q2H PRN IV 07/26/17 10:00 Potassium Chloride 100 ml @ 50 mls/hr Q2H PRN IV 07/26/17 10:00 Potassium Chloride 100 ml @ 25 mls/hr UNSCH PRN IV 07/26/17 10:00 (K-Phos) 2,000 mg Q4H PRN PO 07/26/17 10:00 (K-Phos) 2,000 mg UNSCH PRN PO/TUBE 07/26/17 10:00 Potassium Phosphate 30 mmol/ Sodium Chloride 260 ml @ 42 mls/hr UNSCH PRN IV 07/26/17 10:00 Sodium Phosphate 30 mmol/Sodium Chloride 250 ml @ 42 mls/hr UNSCH PRN IV 07/26/17 10:00 Fentanyl Citrate 250 ml @ 5 mls/hr TITRATE PRN IV 07/26/17 11:00 (Tylenol) 650 mg Q6H PRN PO 07/26/17 11:00 (Pepcid Inj) 20 mg Q12HR IV PUSH 07/26/17 21:00 (Zofran Inj) 4 mg Q6H PRN IV PUSH 07/26/17 11:00 (Heparin Inj) 5,000 units Q8H SQ 07/26/17 12:00 07/26/17 12:24 Miscellaneous Information 1 Q361D XX 07/26/17 10:00 (Chlorhexidine 2% Cloth) 3 pack Taper DAILY@04 TOP 07/27/17 04:00 07/23/18 03:59 (Chlorhexidine 2% Cloth) 3 pack UNSCH PRN TOP 07/26/17 10:00 (Hedy-Colace) 1 tab BID PO 07/26/17 21:00 (Milk Of Magnesia Liq) 30 ml Q12H PRN PO 07/26/17 10:00 (Senokot) 17.2 mg Q12H PRN PO 07/26/17 10:00 (Dulcolax Supp) 10 mg DAILY PRN RECTAL 07/26/17 10:00 (Lactulose Liq) 30 ml DAILY PRN PO 07/26/17 10:00 Piperacillin Sod/ Tazobactam Sod 50 ml @ 100 mls/hr Q8H IV 07/26/17 18:00 Azithromycin 500 mg/Sodium Chloride 250 ml @ 250 mls/hr Q24H IV 07/27/17 10:00 Vancomycin HCl 1000 mg/Sodium Chloride 250 ml @ 250 mls/hr Q24H IV 07/26/17 11:00 07/26/17 12:24 Miscellaneous Information SPECIFIC LAB TO BE DRAWN:vancomy... ONCE ONCE .XX 07/29/17 10:45 07/29/17 10:46 Family History Mother has Alzhiemer's Substance Use Tobacco:none listed Alcohol:none listed Prescription med abuse:none listed Illicits:none listed Psychosocial History From nursing facility. Pt is . Pt has a son Sammy Schmitz (no phone number available) Pt was born in [place] Spiritual/Cultural Factors unknown Living Will: Never completed Health Care Surrogate: Never completed Durable Power of Slide Forming Machine Operator: Never completed (to sister's knowledge never completed.) Physical Exam Vital Signs Date Time Temp Pulse Resp B/P (MAP) Pulse Ox O2 Delivery O2 Flow Rate FiO2 07/26/17 12:17 92 100 07/26/17 12:00 07/26/17 11:00 96.4 74 14 114/71 (85) 97 07/26/17 10:00 88 14 133/65 (87) 99 07/26/17 09:35 86 14 110/54 (72) 99 07/26/17 09:20 96 100 07/26/17 09:05 88 14 118/78 (91) 100 Ventilator 07/26/17 08:40 18 94 Nasal Cannula 4.00 07/26/17 08:20 91.9 07/26/17 08:20 91.9 07/26/17 07:48 85 24 154/70 (98) 99 07/26/17 07/27/17 19:00 07:00 Intake Total 100 ml Balance 100 ml Intake IV Total 100 ml Exam CONSTITUTIONAL/GENERAL: pt is intubated and sedated. TUBES/LINES/DRAINS:right central line, canas SKIN: No jaundice, rashes, or lesions. Ecchymoses on upper extremities. No wounds seen anteriorly. Skin temperature appropriate. Not diaphoretic. HEAD: Atraumatic. Normocephalic. EYES: Pupils equal and round and reactive. Extraocular motions intact. No scleral icterus. No injection or drainage. Fundi not examined. ENT: Hearing grossly normal. Nose without bleeding or purulent drainage. Throat intubated NECK: Trachea midline.No palpable thyroid enlargement or nodularity. CARDIOVASCULAR: Regular rate and rhythm without murmurs, gallops, or rubs. No JVD. Peripheral pulses symmetric. RESPIRATORY/CHEST: Symmetric, faint rhonchi GASTROINTESTINAL: Abdomen soft, non-tender, nondistended. No hepato-splenomegaly , or palpable masses. No guarding. Bowel sounds present. GENITOURINARY: Without palpable bladder distension. Canas catheter in place. MUSCULOSKELETAL: Extremities without clubbing, cyanosis, or edema. No joint tenderness or effusion noted. No calf tenderness. No mottling or clubbing. LYMPHATICS: No palpable cervical or supraclavicular adenopathy. NEUROLOGICAL: sedated PSYCHIATRIC: No obvious anxiety/depression. no apparent hallucinations or other psychotic thought process. Diagnostic Tests Laboratory Laboratory Tests Test 07/26/17 08:05 07/26/17 08:20 07/26/17 11:00 White Blood Count 12.5 TH/MM3 (4.0-11.0) Red Blood Count 4.72 MIL/MM3 (4.00-5.30) Hemoglobin 14.4 GM/DL (11.6-15.3) Hematocrit 46.1 % (35.0-46.0) Mean Corpuscular Volume 97.6 FL (80.0-100.0) Mean Corpuscular Hemoglobin 30.6 PG (27.0-34.0) Mean Corpuscular Hemoglobin Concent 31.3 % (32.0-36.0) Red Cell Distribution Width 15.6 % (11.6-17.2) Platelet Count 312 TH/MM3 (150-450) Mean Platelet Volume 8.7 FL (7.0-11.0) Neutrophils (%) (Auto) 76.6 % (16.0-70.0) Lymphocytes (%) (Auto) 11.7 % (9.0-44.0) Monocytes (%) (Auto) 10.4 % (0.0-8.0) Eosinophils (%) (Auto) 0.4 % (0.0-4.0) Basophils (%) (Auto) 0.9 % (0.0-2.0) Neutrophils # (Auto) 9.6 TH/MM3 (1.8-7.7) Lymphocytes # (Auto) 1.5 TH/MM3 (1.0-4.8) Monocytes # (Auto) 1.3 TH/MM3 (0-0.9) Eosinophils # (Auto) 0.0 TH/MM3 (0-0.4) Basophils # (Auto) 0.1 TH/MM3 (0-0.2) CBC Comment DIFF FINAL Differential Comment Urine Color YELLOW (YELLW/STRAW) Urine Turbidity HAZY (CLEAR) Urine pH 5.5 (5.0-8.5) Urine Specific [place] 1.018 (1.002-1.035) Urine Protein 30 mg/dL (NEG-TRACE) Urine Glucose (UA) 300 mg/dL (NEG) Urine Ketones NEG mg/dL (NEG) Urine Occult Blood NEG (NEG) Urine Nitrite NEG (NEG) Urine Bilirubin NEG (NEG) Urine Urobilinogen LESS THAN 2.0 MG/DL (LESS Urine Leukocyte Esterase MOD (NEG) Urine RBC LESS THAN 1 /hpf (0-3) Urine WBC 12 /hpf (0-5) Urine WBC Clumps FEW (NONE) Urine Squamous Epithelial Cells 1 /hpf (0-5) Urine Transitional Epithelial Cells <1 /hpf (NONE) Urine Amorphous Sediment FEW Urine Bacteria OCC /hpf (NONE) Microscopic Urinalysis Comment CATH-CULTURE IND Blood Urea Nitrogen 27 MG/DL (7-18) Creatinine 1.41 MG/DL (0.50-1.00) Random Glucose 323 MG/DL (74-106) Total Protein 7.8 GM/DL (6.4-8.2) Albumin 3.4 GM/DL (3.4-5.0) Calcium Level 8.8 MG/DL (8.5-10.1) Alkaline Phosphatase 90 U/L (45-117) Aspartate Amino Transf (AST/SGOT) 54 U/L (15-37) Alanine Aminotransferase (ALT/SGPT) 40 U/L (10-53) Total Bilirubin 0.4 MG/DL (0.2-1.0) Sodium Level 137 MEQ/L (136-145) Potassium Level 4.6 MEQ/L (3.5-5.1) Chloride Level 99 MEQ/L (98-107) Carbon Dioxide Level 25.5 MEQ/L (21.0-32.0) Anion Gap 13 MEQ/L (5-15) Estimat Glomerular Filtration Rate 36 ML/MIN (>89) Lactic Acid Level 5.6 mmol/L (0.4-2.0) 4.8 mmol/L (0.4-2.0) Total Creatine Kinase 91 U/L (26-192) Troponin I 0.07 NG/ML (0.02-0.05) Thyroid Stimulating Hormone 3rd Gen 1.530 uIU/ML (0.358-3.740) Blood Gas Puncture Site LT RADIAL Blood Gas Patient Temperature 98.6 Blood Gas HCO3 32 mmol/L (22-26) Blood Gas Base Excess 1.3 mmol/L (-2-2) Blood Gas Oxygen Saturation 92 % (90-100) Arterial Blood pH 7.04 (7.380-7.420) Arterial Blood Partial Pressure CO2 122 mmHg (38-42) Arterial Blood Partial Pressure O2 95 mmHG (61-120) Arterial Blood Oxygen Content 18.1 Vol % (12.0-20.0) Arterial Blood Carboxyhemoglobin 0.8 % (0-4) Arterial Blood Methemoglobin 0.7 % (0-2) Blood Gas Hemoglobin 13.9 G/DL (12.0-16.0) Oxygen Delivery Device NASAL CANNULA Blood Gas Liter Flow 4 L/M Result Diagram: 07/26/1780407/26/17804 Microbiology Microbiology Date/Time Source Procedure Growth Status 07/26/17 08:15 Blood Peripheral Aerobic Blood Culture Pending Received 07/26/17 08:15 Blood Peripheral Anaerobic Blood Culture Pending Received 07/26/17 08:00 Blood Peripheral Aerobic Blood Culture Pending Received 07/26/17 08:00 Blood Peripheral Anaerobic Blood Culture Pending Received 07/26/17 11:35 Sputum Endotracheal Gram Stain Pending Received 07/26/17 11:35 Sputum Endotracheal Sputum Culture Pending Received 07/26/17 08:05 Urine Catheterized Urine Urine Culture Pending Received Imaging Last Impressions Head CT 07/26/17823 Signed Impressions: Service Date/Time: Wednesday, July 26, 2017 09:14 - CONCLUSION: 1. No evidence of acute intracranial pathology. No masses are identified.8 Sukhjinder Bhakta MD Chest X-Ray 07/26/17813 Signed Impressions: Service Date/Time: Wednesday, July 26, 2017 08:29 - CONCLUSION: 1. Scattered bibasilar patchiness consistent with atelectasis and/or pneumonia. Clinical correlation is recommended. 2. Cardiomegaly. John Ferris MD Patient/Family Conference Present at Family Conference: Spoke with Sister Milagros Healy on the phone. Family Conference Time (mins): 50 Issues Discussed: * Palliative care role, purpose, approach * Additional medical, psychosocial, and spiritual history * Patients general health, functional status, and cognitive changes in the months leading up to the current hospitalization * Patient/family understanding of the current medical problems * Patient/family understanding of prognosis * Patients goals of care as best understood from advance directives and/or conversations and/or values * Current medical treatment options and benefits/burdens of those options * Likely scenarios comparing ongoing aggressive care with a transition to comfort measures only * Questions answered to the best of my ability * Palliative care contact information provided Assessment and Plan Disease Oriented Problem List: (1) Respiratory failure with hypercapnia (2) Urinary tract infection (3) Sepsis (4) Pneumonia (5) Acute kidney injury (6) Septic shock Symptom Scale: (1) Dyspnea 0-10 Scale: Unable to quantify Pertinent Non-Medical Issues Psychosocial:From nursing facility Spiritual:unknown. Legal:pending legal decision maker Ethical issues impacting care:pending legal decision maker Important Contacts Milagros Healy [phone]. Prognosis Prognosis is guarded , given pt's hx of copd and alzheimer's dementia. Code Status: Full Code Plan == Capacity- no capacity to make medical decision right now. Pt also has hx of alzhemier's dementia. == Health Care Decision Maker- Pending. Per sister, pt has a son Sammy Schmitz, last seen in [place]. We do not have a phone number. Pt's sister is Milagros Healy and she state she in many ways is estrange from her sister, and does not know about her current situation very much. Pt's sister stated if we are not able to reach son, she can serve as health care surrogate. == Code: Full == Goals of care- we will need to try to find son. goals are aggressive. I did review with the sister that given pt's alzheimer's and copd, overall prognosis is poor in the long one. For now she wants continue aggressive care including full code. Call and left message to Lauro Rockwell (pt's friend) and will follow. Need to determine if she has health care surrogate information/ or have info on son' s whearabouts. ==dyspnea- defer to intensive care managment. == palliatice care will continue to follow. Thank you for the opportunity to participate in the care of Ms. Schmitz. Attestation To help prompt me to consider important information that might be impacting today's encounter and assessment, information from prior notes written by myself or my colleagues may have been "brought forward" into today's note. My signature on this note, however, is an attestation that I personally performed the exam, history, and/or decision-making noted today, and, unless otherwise indicated, the interactions with patient, family, and staff as well as the review of records all occurred today. I also attest that the listed assessment and stated plan reflect my best clinical judgment today based on the combination of historical information, prior notes, and today's exam/ interactions. When time spent is documented, it refers only to time spent today by the signer, or if indicated, combined time spent today by collaborating physician/nurse practitioner. Faheem Wayne MD Jul 26, 2017 12:54
[2017-07-26] MEDS: ASPIRIN EC 81 MG TABEC PO SCH (13:15)
[2017-07-26] MEDS ORDERED: POTASSIUM CHLORIDE 25 MEQ EFFERVESCENT TAB PO PRN (13:30)
[2017-07-26] MEDS: SODIUM CHLOR 0.9% 1000 ML INJ 1,000 ML IV SCH ×2 (13:34→13:35)
--- NOTE | 2017-07-26 13:35 | RADRPT ---
EXAM DATE/TIME: 07/26/2017 12:56 [facility] COMPARISON: CHEST SINGLE AP, July 26, 2017, 9:12. INDICATIONS : Central line placement. MEDICAL HISTORY : Hypertension. Cardiovascular disease. dementia SURGICAL HISTORY : None. ENCOUNTER: Initial ACUITY: 1 day PAIN SCORE: Non-responsive. LOCATION: Left chest FINDINGS: Support apparatus in good position. A single view of the chest demonstrates the lungs to be symmetri ignacia aerated without evidence of mass, infiltrate or effusion. The cardiomediastinal contours are u nremarkable. Osseous structures are intact. CONCLUSION: Central line atriocaval junction without pneumothorax. Porfirio Leon MD FACR on July 26, 2017 at 13:32 Board Certified Radiologist. This report was verified electronically.
[2017-07-26 13:36] LABS: BLOOD GAS BASE EXCESS 2.9 mmol/L (-2-2); BLOOD GAS HCO3 28 mmol/L (22-26); BLOOD GAS METHEMOGLOBIN 1.2 % (0-2); BLOOD GAS O2 HGB SATURATION 94 % (90-100); BLOOD GAS OXYGEN CONTENT 16.6 Vol % (12.0-20.0); BLOOD GAS PCO2 50 mmHg (38-42); BLOOD GAS PO2 83 mmHg (61-120); BLOOD GAS TOTAL HGB 12.5 G/DL (12.0-16.0); CRITICAL VALUE NO; OXYGEN DEVICE VENTILATOR; TEMP CORR TO 98.6
[2017-07-26 13:37] LABS: DRAW SITE LT BRACHIAL; FIO2 50 %; NUMBER OF ARTERIAL PUNCTURES 1; STAT NO; ULNAR PULSE PRESENT; VENT SETTINGS PRVC/AC
[2017-07-26] MEDS: methylPREDNISolone SOD SUCC 125 MG/2 ML VIAL IV PUSH SCH ×2 (13:47→21:47)
[2017-07-26 14:11] LABS: MAGNESIUM 2.7 MG/DL (1.5-2.5)
[2017-07-26] MEDS: VASOPRESSIN INJ 40 UNITS in DEXTROSE 5% IN WATER 100ML INJ 98 ML IV SCH ×2 (14:14)
[2017-07-26] MEDS: RESP: ALBUTEROL 2.5 MG/IPRATROPIUM 0.5 MG NEB (SCH) INH ×2 (16:00→21:10)
[2017-07-26 16:53] LABS: HEMOGLOBIN A1a 1.3 %; HEMOGLOBIN A1b 1.3 %; HEMOGLOBIN Ao 81.6 %; HEMOGLOBIN F 1.1 %; HEMOGLOBIN LA1C 3.7 %; HEMOGLOBIN P3 6.2 %
[2017-07-26] MEDS: PIPERACIL-TAZO 3.375 GM PREMIX 50 ML IV SCH (17:15)
[2017-07-26] MEDS ORDERED: SODIUM CHLOR 0.9% 1000 ML INJ 1,000 ML IV ONE (17:45)
[2017-07-26] MEDS ORDERED: NOREPINEPHRINE 4 MG/D5W 250 ML IV PRN (17:45)
[2017-07-26 18:54] LABS: MAGNESIUM 1.6 MG/DL (1.5-2.5)
[2017-07-26] MEDS: DOCUSATE SODIUM 50 MG/SENNA 8.6 MG TAB PO SCH (21:47)
[2017-07-26] MEDS: FAMOTIDINE 20 MG/2 ML VIAL IV PUSH SCH (21:47)
[2017-07-26] MEDS: CHLORHEXIDINE 0.12% (ORAL KIT) 15 ML CUP MT SCH (21:53)
[2017-07-27] VITALS (21 sets, daily range): BP systolic 126–178; BP diastolic 65–92; PULSE 75–110; RESP 0–18; TEMP 98.1–100.4; O2SAT 98–100
[2017-07-27] MEDS: PIPERACIL-TAZO 3.375 GM PREMIX 50 ML IV SCH ×4 (02:00→23:21)
[2017-07-27] MEDS: RESP: ALBUTEROL 2.5 MG/IPRATROPIUM 0.5 MG NEB (SCH) INH ×4 (03:25→22:52)
[2017-07-27] MEDS: CHLORHEXIDINE GLUCONATE 2 % 1 PACK (2 CLOTHS) TOP SCH ×2 (04:00→23:21)
[2017-07-27] MEDS: HEPARIN SODIUM - SQ 10,000 UNITS/ML VIAL SQ SCH ×3 (04:00→23:20)
[2017-07-27] MEDS: INSULIN NovoLIN REGULAR SUPPLEMENTAL SCALE SQ SCH ×5 (04:26→23:21)
[2017-07-27] MEDS: PROPOFOL 1000 MG/100 ML INJ 100 ML IV PRN ×2 (04:28→11:49)
[2017-07-27 05:09] LABS: HEMATOCRIT 36.8 % (35.0-46.0); MEAN CELL VOLUME 91.9 FL (80.0-100.0); MEAN CORPUSCULAR HEMOGLOBIN 29.9 PG (27.0-34.0); MEAN CORPUSCULAR HGB CONC 32.6 % (32.0-36.0); PLATELET COUNT 282 TH/MM3 (150-450); RED CELL DISTRIBUTION WIDTH 15.1 % (11.6-17.2); REVIEW FLAG FINAL; WHITE BLOOD COUNT 10.6 TH/MM3 (4.0-11.0)
[2017-07-27 05:42] LABS: BICARBONATE 25.8 MEQ/L (21.0-32.0)
[2017-07-27 06:01] LABS: CALCIUM-PROTEIN CORRECTED 8.1 MG/DL (8.5-10.1)
[2017-07-27] MEDS: FAMOTIDINE 20 MG/2 ML VIAL IV PUSH SCH ×2 (09:25→23:21)
[2017-07-27] MEDS: DOCUSATE SODIUM 50 MG/SENNA 8.6 MG TAB PO SCH ×2 (09:25→23:22)
[2017-07-27] MEDS: ASPIRIN EC 81 MG TABEC PO SCH (09:25)
[2017-07-27] MEDS: methylPREDNISolone SOD SUCC 125 MG/2 ML VIAL IV PUSH SCH ×2 (09:25→23:21)
[2017-07-27] MEDS: CHLORHEXIDINE 0.12% (ORAL KIT) 15 ML CUP MT SCH ×2 (09:26→20:00)
[2017-07-27] MEDS ORDERED: AZITHROMYCIN INJ 500 MG in SODIUM CHLOR 0.9% 250 ML INJ 250 ML IV SCH (10:00)
[2017-07-27] MEDS: VANCOMYCIN 1,000 MG/NS 250 ML IV SCH ×2 (10:25)
[2017-07-27] MEDS: ACETAMINOPHEN 325 MG TAB PO PRN (13:25)
[2017-07-27] MEDS: VASOPRESSIN INJ 40 UNITS in DEXTROSE 5% IN WATER 100ML INJ 98 ML IV SCH ×2 (13:26)
--- NOTE | 2017-07-27 13:42 | HHI.CCPN ---
Subjective Remarks/Hospital Course All history is obtained from ED chart review. Patient is intubated sedated. Patient is a 76-year-old female history of dementia, hypertension, hyperlipidemia, coronary artery disease, COPD, who presented from the assisted with decreased level of consciousness. Paramedics found her lethargic and obtunded, hypoxemic. She was placed on NRB placed a nonrebreather and brought to the ED. In the ED patient was unresponsive, SaO2 98-99%. She was taken off the nonrebreather and placed on a nasal cannula. ABG- pH of 7.041. PCO2 was 122 and PO2 was 94.5. Temp was 91.8 and Patient was placed on warming blanket, warm IVD fluids were initiated. She was intubated for severe hypercapnic respiratory failure. Her urinalysis shows evidence of a UTI and her chest x-ray shows probable pneumonia. Received Zosyn and azithromycin. Lactate was 5.6. CCM requested to admit I evaluated the patent immediately in ICU. Patient was severely bradycardic, HR in mid 20s and blood pressure was not recordable, but had palpable pulse. No response to atropine. I ordered 0.5 mg epinephrine, IVF 3L boluses and Levophed started. Patients BP improved with above measures and I placed an emergent L subclavian central line. Her home medications and hypercapnic resp failure indicated COPD exacerbation in addition to septic shock. I have started IV steroids and will continue Vanc and Zosyn, scheduled and PRN DuoNeb. Also Minute ventilation adjusted to correct hypercapnia and severe acidosis SUBJ: Patient remains intubated sedated. On sedation hold and attended CPAP became very tachypneic and agitated, repeatedly placed back on ACV mechanical ventilation. FiO2 at 45%. Off Lveophed Objective Vital Signs Date Time Temp Pulse Resp B/P (MAP) Pulse Ox O2 Delivery O2 Flow Rate FiO2 07/27/17 13:26 109 178/92 07/27/17 13:00 98 45 07/27/17 12:00 100.4 18 07/26/17 09:05 Ventilator 07/26/17 08:40 4.00 Intake and Output 07/27/17 07/27/17 07/28/17 08:00 16:00 00:00 Intake Total 2150 ml 50 ml Output Total 450 ml Balance 1700 ml 50 ml Result Diagram: 07/27/170 07/27/17439 Other Results Microbiology Date/Time Source Procedure Growth Status 07/26/17 08:05 Urine Catheterized Urine Streptococcus pneumoniae Antigen (M - Final PRESUMPTIVE NEGATIVE FOR STREPTOCOCCU... Complete Imaging CXR bilateral patchy infiltrates Objective Remarks GENERAL: Well-developed well-nourished patient intubated sedated, agitated on sedation hold SKIN: Cold/dry. HEAD: Atraumatic. Normocephalic. EYES: No scleral icterus. No injection or drainage. ENT: Mucous membranes dry. Orotracheally intubated NECK: Trachea midline. Supple. CARDIOVASCULAR: Regular rate and rhythm. No murmur appreciated. In severe shock getting actively resuscitated RESPIRATORY: Breath sounds equal bilaterally. Bilateral rales and scattered rhonchi few wheezes GASTROINTESTINAL: Abdomen soft, non-tender, nondistended. Hepatic and splenic margins not palpable. MUSCULOSKELETAL: No obvious deformities. No clubbing. No cyanosis. No edema. NEUROLOGICAL: Intubated sedation, on sedation hold becomes agitated but intermittently follows commands by squeezing with hands A/P Assessment and Plan NEURO: Acute metabolic encephalopathy/CO2 narcosis History of dementia - DC Propofol and start Precedex to facilitate ventilator weaning - Start daily sedation vacation once clinically improved RESP: Acute hypoxemic and hypercarbic respiratory failure Healthcare associated pneumonia Acute COPD exacerbation - ACV RR 18 TV 500 PEEP 10 FiO2 45%. Wean PEEP to 7 - Failed spontaneous breathing trial today, repeat trial in 24 hours - DuoNeb every 6 hours and when necessary, start budesonide inhaled every 12 - IV Solu-Medrol 60 mg every 8 hours - Broad-spectrum antibiotics with vancomycin and Zosyn CV: Septic shock Severe bradycardia-resolved Lactic acidosis - Normal saline IV fluids 3 L bolus and 125 ml per hour - Trend lactic acid - Patient required epinephrine and atropine push for severe bradycardia and hypotension now resolved - Severe bradycardia hypotension most likely from severe acidemia - Levophed as needed to keep map above 65-now weaned off GI: - Nothing by mouth, IV famotidine. Start tube feeding with Jevity : Acute kidney injury - Monitor renal function closely. Mcnulty catheter. Renal failure secondary to sepsis and dehydration ID: Septic shock Healthcare associated pneumonia UTI - Continue Vancomycin and Zosyn renally dosed - Follow-up on blood urine and sputum culture - Trend lactic acid HEME: - Monitor CBC, CMP, coags ENDO: Hyperglycemia - Sliding-scale insulin, check hemoglobin A1c - Electrolyte Replacement per protocol PROPH: - Bilateral lower extremity SCDs. Subcutaneous heparin, IV famotidine LINES: - Right subclavian central line placed 07/26/17 CC time 32 min excluding procedures Pamela Lomas MD Jul 27, 2017 13:42
[2017-07-27] MEDS ORDERED: DEXMEDETOMIDINE INJ 200 MCG in SODIUM CHLORIDE 0.9% INJ 50 ML IV PRN (13:45)
[2017-07-27] MEDS: RESP: BUDESONIDE 0.5 MG/2 ML NEB NEB SCH ×2 (14:00→20:00)
--- NOTE | 2017-07-27 14:41 | RADRPT ---
EXAM DATE/TIME: 07/27/2017 12:44 [facility] COMPARISON: CHEST SINGLE AP, July 26, 2017, 12:56. INDICATIONS : Respiratory Disease. MEDICAL HISTORY : Hypertension. Cardiovascular disease. Dementia. SURGICAL HISTORY : None. ENCOUNTER: Subsequent ACUITY: 2 days PAIN SCORE: Non-responsive. LOCATION: Bilateral chest FINDINGS: An endotracheal tube has its tip 1-2 cm above the félix. The nasogastric tube has its tip below the diaphragm. A right subclavian central line has its tip in the superior vena cava. No pneumothorax i s noted. Bibasilar patchiness is noted consistent with atelectasis and/or mild infiltrates. The hear t is stable. CONCLUSION: 1. Multiple tubes and lines are stable. 2. Bibasilar patchiness consistent with atelectasis and/or mild infiltrates. Clinical correlation is recommended. John Ferris MD on July 27, 2017 at 14:25 Board Certified Radiologist. This report was verified electronically.
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
[2017-07-27] MEDS: DEXMEDETOMIDINE INJ 1,000 MCG in SODIUM CHLOR 0.9% 250 ML INJ 240 ML IV PRN (16:15)
[2017-07-28] VITALS (23 sets, daily range): BP systolic 115–193; BP diastolic 56–101; PULSE 53–127; RESP 14–23; TEMP 96.4–100; O2SAT 85–100
[2017-07-28] MEDS: PIPERACIL-TAZO 3.375 GM PREMIX 50 ML IV SCH ×4 (04:08→21:45)
[2017-07-28] MEDS: HEPARIN SODIUM - SQ 10,000 UNITS/ML VIAL SQ SCH ×3 (04:09→21:44)
[2017-07-28] MEDS: INSULIN NovoLIN REGULAR SUPPLEMENTAL SCALE SQ SCH ×4 (04:09→17:20)
[2017-07-28] MEDS: RESP: ALBUTEROL 2.5 MG/IPRATROPIUM 0.5 MG NEB (SCH) INH ×4 (04:29→21:29)
[2017-07-28 04:34] LABS: HEMATOCRIT 38.7 % (35.0-46.0); MEAN CELL VOLUME 92.3 FL (80.0-100.0); MEAN CORPUSCULAR HEMOGLOBIN 29.6 PG (27.0-34.0); MEAN CORPUSCULAR HGB CONC 32.1 % (32.0-36.0); PLATELET COUNT 254 TH/MM3 (150-450); RED BLOOD COUNT 4.19 MIL/MM3 (4.00-5.30); RED CELL DISTRIBUTION WIDTH 15.7 % (11.6-17.2); REVIEW FLAG FINAL; WHITE BLOOD COUNT 12.4 TH/MM3 (4.0-11.0)
[2017-07-28 04:55] LABS: BICARBONATE 26.8 MEQ/L (21.0-32.0); POTASSIUM 3.6 MEQ/L (3.5-5.1)
[2017-07-28] MEDS: DEXMEDETOMIDINE INJ 1,000 MCG in SODIUM CHLOR 0.9% 250 ML INJ 240 ML IV PRN (07:47)
[2017-07-28] MEDS: RESP: BUDESONIDE 0.5 MG/2 ML NEB NEB SCH ×2 (07:54→21:29)
[2017-07-28] MEDS: DOCUSATE SODIUM 50 MG/SENNA 8.6 MG TAB PO SCH ×2 (09:00→21:00)
[2017-07-28] MEDS: VANCOMYCIN 1,000 MG/NS 250 ML IV SCH ×2 (09:22)
[2017-07-28] MEDS: ASPIRIN EC 81 MG TABEC PO SCH (09:23)
[2017-07-28] MEDS: methylPREDNISolone SOD SUCC 125 MG/2 ML VIAL IV PUSH SCH ×2 (09:24→21:45)
[2017-07-28] MEDS: FAMOTIDINE 20 MG/2 ML VIAL IV PUSH SCH (09:24)
[2017-07-28] MEDS: CHLORHEXIDINE 0.12% (ORAL KIT) 15 ML CUP MT SCH (09:25)
--- NOTE | 2017-07-28 10:19 | HHI.CCPN ---
Subjective Remarks/Hospital Course All history is obtained from ED chart review. Patient is intubated sedated. Patient is a 76-year-old female history of dementia, hypertension, hyperlipidemia, coronary artery disease, COPD, who [facility] with decreased level of consciousness. Paramedics found her lethargic and obtunded, hypoxemic. She was placed on NRB placed a nonrebreather and brought to the ED. In the ED patient was unresponsive, SaO2 98-99%. She was taken off the nonrebreather and placed on a nasal cannula. ABG- pH of 7.041. PCO2 was 122 and PO2 was 94.5. Temp was 91.8 and Patient was placed on warming blanket, warm IVD fluids were initiated. She was intubated for severe hypercapnic respiratory failure. Her urinalysis shows evidence of a UTI and her chest x-ray shows probable pneumonia. Received Zosyn and azithromycin. Lactate was 5.6. CCM requested to admit I evaluated the patent immediately in ICU. Patient was severely bradycardic, HR in mid 20s and blood pressure was not recordable, but had palpable pulse. No response to atropine. I ordered 0.5 mg epinephrine, IVF 3L boluses and Levophed started. Patients BP improved with above measures and I placed an emergent L subclavian central line. Her home medications and hypercapnic resp failure indicated COPD exacerbation in addition to septic shock. I have started IV steroids and will continue Vanc and Zosyn, scheduled and PRN DuoNeb. Also Minute ventilation adjusted to correct hypercapnia and severe acidosis SUBJ: Patient remains intubated sedated. On sedation hold and attended CPAP became very tachypneic and agitated, repeatedly placed back on ACV mechanical ventilation. FiO2 at 45%. Off Lveophed 07/28: Clinically improved. Following commands, tolerated CPAP on Precedex. We' ll get weaning parameters and possible extubation. Remains on Precedex. Urine output adequate Objective Vital Signs Date Time Temp Pulse Resp B/P (MAP) Pulse Ox O2 Delivery O2 Flow Rate FiO2 07/28/17 09:20 35 07/28/17 07:55 97 07/28/17 06:00 71 07/28/17 04:36 Ventilator 07/28/17 04:00 96.4 19 193/101 (131) 07/26/17 08:40 4.00 Intake and Output 07/28/17 07/28/17 07/29/17 08:00 16:00 00:00 Intake Total 923 ml Output Total 1300 ml Balance -377 ml Result Diagram: 07/28/1734907/28/17349 Other Results Microbiology Date/Time Source Procedure Growth Status 07/26/17 08:05 Urine Catheterized Urine Streptococcus pneumoniae Antigen (M - Final PRESUMPTIVE NEGATIVE FOR STREPTOCOCCU... Complete 07/26/17 08:05 Urine Catheterized Urine Urine Culture - Final Lactobacillus Species Complete Imaging CXR bilateral patchy infiltrates Objective Remarks GENERAL: Well-developed well-nourished patient intubated sedated SKIN: Cold/dry. HEAD: Atraumatic. Normocephalic. EYES: No scleral icterus. No injection or drainage. ENT: Mucous membranes dry. Orotracheally intubated NECK: Trachea midline. Supple. CARDIOVASCULAR: Regular rate and rhythm. No murmur appreciated. RESPIRATORY: Breath sounds equal bilaterally. Bilateral rales and scattered rhonchi few wheezes GASTROINTESTINAL: Abdomen soft, non-tender, nondistended. Hepatic and splenic margins not palpable. MUSCULOSKELETAL: No obvious deformities. No clubbing. No cyanosis. No edema. NEUROLOGICAL: Intubated sedation with Precedex, follows commands by squeezing with hands A/P Assessment and Plan NEURO: Acute metabolic encephalopathy/CO2 narcosis History of dementia - Precedex to facilitate ventilator weaning - Daily sedation vacation once clinically improved RESP: Acute hypoxemic and hypercarbic respiratory failure Healthcare associated pneumonia Acute COPD exacerbation - ACV RR 18 TV 500 PEEP 7 FiO2 40%. CPAP 5/5 with possible extubation today - DuoNeb every 6 hours and when necessary, Budesonide inhaled every 12 - IV Solu-Medrol 60 mg every 8 hours - Broad-spectrum antibiotics with vancomycin and Zosyn CV: Septic shock-resolved Severe bradycardia-resolved Lactic acidosis - Normal saline IV fluids 3 L bolus and 125 ml per hour-DC IVF - Trend lactic acid - Patient required epinephrine and atropine push for severe bradycardia and hypotension now resolved - Severe bradycardia hypotension most likely from severe acidemia - Remains off all pressors GI: - Nothing by mouth, IV famotidine. Diet after extubation : Acute kidney injury - Monitor renal function closely. Mcnulty catheter. Renal failure secondary to sepsis and dehydration ID: Septic shock Healthcare associated pneumonia UTI - Continue Vancomycin and Zosyn renally dosed. DC Vanc today - Follow-up on blood urine and sputum culture - Trend lactic acid HEME: - Monitor CBC, CMP, coags ENDO: Hyperglycemia - Sliding-scale insulin, HbA1c 6.1 - Electrolyte Replacement per protocol PROPH: - Bilateral lower extremity SCDs. Subcutaneous heparin, IV famotidine LINES: - Right subclavian central line placed 07/26/17 Level 3 Pamela Lomas MD Jul 28, 2017 10:19
[2017-07-28] MEDS: VASOPRESSIN INJ 40 UNITS in DEXTROSE 5% IN WATER 100ML INJ 98 ML IV SCH ×2 (13:31)
[2017-07-28 14:39] LABS: C. DIFF EPI 027 PRESUMPTIVE NEGATIVE (NEGATIVE)
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
[2017-07-28] MEDS: HALOPERIDOL LACTATE 5 MG/ML AMP IV PRN (16:50)
[2017-07-28] MEDS ORDERED: LORazepam 2 MG/ML VIAL IV PUSH ONE (17:45)
[2017-07-28] MEDS: LORazepam 2 MG/ML VIAL IV PUSH PRN (17:47)
[2017-07-28] MEDS: DEXMEDETOMIDINE INJ 200 MCG in SODIUM CHLORIDE 0.9% INJ 50 ML IV PRN ×2 (19:29→21:54)
[2017-07-28] MEDS: FAMOTIDINE 20 MG TAB PO SCH (21:44)
[2017-07-29] VITALS (17 sets, daily range): BP systolic 98–177; BP diastolic 55–79; PULSE 83–110; RESP 17–33; TEMP 98.2–100.4; O2SAT 75–100
[2017-07-29] MEDS: RESP: ALBUTEROL 2.5 MG/IPRATROPIUM 0.5 MG NEB (SCH) INH ×4 (03:12→21:10)
[2017-07-29] MEDS: HEPARIN SODIUM - SQ 10,000 UNITS/ML VIAL SQ SCH ×3 (04:00→22:40)
[2017-07-29] MEDS: CHLORHEXIDINE GLUCONATE 2 % 1 PACK (2 CLOTHS) TOP SCH (04:00)
[2017-07-29] MEDS: PIPERACIL-TAZO 3.375 GM PREMIX 50 ML IV SCH ×4 (05:41→22:39)
[2017-07-29] MEDS: INSULIN NovoLIN REGULAR SUPPLEMENTAL SCALE SQ SCH ×4 (06:00→16:30)
[2017-07-29 06:50] LABS: HEMATOCRIT 38.1 % (35.0-46.0); MEAN CELL VOLUME 93.4 FL (80.0-100.0); MEAN CORPUSCULAR HEMOGLOBIN 29.6 PG (27.0-34.0); MEAN CORPUSCULAR HGB CONC 31.7 % (32.0-36.0); PLATELET COUNT 244 TH/MM3 (150-450); RED BLOOD COUNT 4.08 MIL/MM3 (4.00-5.30); REVIEW FLAG FINAL; WHITE BLOOD COUNT 12.1 TH/MM3 (4.0-11.0)
[2017-07-29 07:23] LABS: POTASSIUM 4.1 MEQ/L (3.5-5.1)
[2017-07-29] MEDS: ASPIRIN EC 81 MG TABEC PO SCH (07:46)
[2017-07-29] MEDS: FAMOTIDINE 20 MG TAB PO SCH ×2 (07:47→22:40)
[2017-07-29] MEDS: methylPREDNISolone SOD SUCC 125 MG/2 ML VIAL IV PUSH SCH (07:47)
[2017-07-29] MEDS: DOCUSATE SODIUM 50 MG/SENNA 8.6 MG TAB PO SCH ×2 (07:47→22:40)
[2017-07-29] MEDS: CHLORHEXIDINE 0.12% (ORAL KIT) 15 ML CUP MT SCH ×2 (08:00→20:00)
[2017-07-29] MEDS: RESP: BUDESONIDE 0.5 MG/2 ML NEB NEB SCH (09:15)
[2017-07-29] MEDS ORDERED: PHARMACY ORDERED LAB ONE (10:45)
[2017-07-29] MEDS: DEXMEDETOMIDINE INJ 200 MCG in SODIUM CHLORIDE 0.9% INJ 50 ML IV PRN (12:03)
[2017-07-29] MEDS: VASOPRESSIN INJ 40 UNITS in DEXTROSE 5% IN WATER 100ML INJ 98 ML IV SCH ×2 (14:12)
--- NOTE | 2017-07-29 14:29 | HHI.CCPN ---
Subjective Remarks/Hospital Course All history is obtained from ED chart review. Patient is intubated sedated. Patient is a 76-year-old female history of dementia, hypertension, hyperlipidemia, coronary artery disease, COPD, who [facility] with decreased level of consciousness. Paramedics found her lethargic and obtunded, hypoxemic. She was placed on NRB placed a nonrebreather and brought to the ED. In the ED patient was unresponsive, SaO2 98-99%. She was taken off the nonrebreather and placed on a nasal cannula. ABG- pH of 7.041. PCO2 was 122 and PO2 was 94.5. Temp was 91.8 and Patient was placed on warming blanket, warm IVD fluids were initiated. She was intubated for severe hypercapnic respiratory failure. Her urinalysis shows evidence of a UTI and her chest x-ray shows probable pneumonia. Received Zosyn and azithromycin. Lactate was 5.6. CCM requested to admit I evaluated the patent immediately in ICU. Patient was severely bradycardic, HR in mid 20s and blood pressure was not recordable, but had palpable pulse. No response to atropine. I ordered 0.5 mg epinephrine, IVF 3L boluses and Levophed started. Patients BP improved with above measures and I placed an emergent L subclavian central line. Her home medications and hypercapnic resp failure indicated COPD exacerbation in addition to septic shock. I have started IV steroids and will continue Vanc and Zosyn, scheduled and PRN DuoNeb. Also Minute ventilation adjusted to correct hypercapnia and severe acidosis SUBJ: Patient remains intubated sedated. On sedation hold and attended CPAP became very tachypneic and agitated, repeatedly placed back on ACV mechanical ventilation. FiO2 at 45%. Off Lveophed 07/28: Clinically improved. Following commands, tolerated CPAP on Precedex. We' ll get weaning parameters and possible extubation. Remains on Precedex. Urine output adequate 07/29: Extubated yesterday tolerated well respiratory ha. Had anxiety and agitation yesterday and started on Precedex currently on 0.3 mics per kg per hour. Following commands oriented to person and place Objective Vital Signs Date Time Temp Pulse Resp B/P (MAP) Pulse Ox O2 Delivery O2 Flow Rate FiO2 07/29/17 14:12 121 07/29/17 09:16 99 Nasal Cannula 2.00 07/29/17 04:00 98.7 17 126/63 (84) 07/28/17 09:20 35 Intake and Output 07/29/17 07/29/17 07/30/17 08:00 16:00 00:00 Intake Total 548 ml Output Total 350 ml Balance 198 ml Result Diagram: 07/29/1751807/29/17518 Imaging CXR bilateral patchy infiltrates Objective Remarks GENERAL: Well-developed well-nourished patient on GA SKIN: Dry. HEAD: Atraumatic. Normocephalic. EYES: No scleral icterus. No injection or drainage. ENT: Mucous membranes dry. NECK: Trachea midline. Supple. CARDIOVASCULAR: Regular rate and rhythm. No murmur appreciated. RESPIRATORY: Breath sounds equal bilaterally. Bilateral rales and scattered rhonchi few wheezes GASTROINTESTINAL: Abdomen soft, non-tender, nondistended. Hepatic and splenic margins not palpable. MUSCULOSKELETAL: No obvious deformities. No clubbing. No cyanosis. No edema. NEUROLOGICAL: Alert awake oriented to person and place, remains on Precedex. No focal deficits A/P Assessment and Plan NEURO: Acute metabolic encephalopathy/CO2 narcosis History of dementia - DC Precedex. Use Haldol when necessary. Did not tolerate Ativan - Resume home medications of Aricept, sertraline and when necessary Xanax RESP: Acute hypoxemic and hypercarbic respiratory failure Healthcare associated pneumonia Acute COPD exacerbation - Extubated 07/28/17 tolerating well - DuoNeb every 6 hours and when necessary, Spiriva, Symbicort started - IV Solu-Medrol 60 mg every 12 hours - Broad-spectrum antibiotics with Zosyn - Pulmonology consult for COPD CV: Septic shock-resolved Severe bradycardia-resolved Lactic acidosis - IV to KVO. - On admission Patient required epinephrine and atropine push for severe bradycardia and hypotension - Remains off all pressors GI: - Liquid diet advance as tolerated : Acute kidney injury-resolved - Monitor renal function closely. Mcnulty catheter. Renal failure secondary to sepsis and dehydration ID: Septic shock Healthcare associated pneumonia UTI-with lactobacillus - Continue Zosyn renally dosed. - Follow-up on blood urine and sputum culture HEME: - Monitor CBC, CMP, coags ENDO: Hyperglycemia - Sliding-scale insulin, HbA1c 6.1 - Electrolyte Replacement per protocol PROPH: - Bilateral lower extremity SCDs. Subcutaneous heparin, IV famotidine-change to po LINES: - Right subclavian central line placed 07/26/17-DCd Level 2 Hospitalist consulted to assume care 07/30/17. Pamela Lomas MD Jul 29, 2017 14:29
[2017-07-29] MEDS ORDERED: ALPRAZolam 0.5 MG TAB PO PRN (14:30)
[2017-07-29] MEDS: SERTRALINE HCL 50 MG TAB PO SCH (14:35)
[2017-07-29] MEDS: TIOTROPIUM BROMIDE 18 MCG INH INH SCH (16:28)
[2017-07-29] MEDS: BUDESONIDE-FORMOTEROL 160/4.5 MCG INHALER INH SCH ×2 (16:29→21:00)
--- NOTE | 2017-07-29 21:00 | RADRPT ---
EXAM DATE/TIME: 07/29/2017 20:44 [facility] COMPARISON: CHEST SINGLE AP, July 27, 2017, 12:44. INDICATIONS : Shortness of breath. Pleural effusions. RADIATION DOSE: 9.31 CTDIvol (mGy) MEDICAL HISTORY : Cardiovascular disease. Chronic obstructive pulmonary disease. Hypertension. SURGICAL HISTORY : None. ENCOUNTER: Initial ACUITY: 1 day PAIN SCALE: Non-responsive LOCATION: chest TECHNIQUE: Volumetric scanning of the chest was performed. Using automated exposure control and adjustment of t he mA and/or kV according to patient size, radiation dose was kept as low as reasonably achievable to obtain optimal diagnostic quality images. DICOM format image data is available electronically for r eview and comparison. Follow-up recommendations for detected pulmonary nodules are based at a minimum on nodule size and pa tient risk factors according to Fleischner Society Guidelines. FINDINGS: LUNGS: There is consolidation in the right lower lobe with air bronchograms. There is milder patchy infiltra te at the left lung base. There is no perihilar edema. PLEURAE: There are [id number] bilateral pleural effusions right greater than left. MEDIASTINUM: The heart and great vessels demonstrate no acute abnormality. There is no mediastinal or hilar lymph adenopathy. There is mild cardiomegaly. Coronary artery calcifications are noted. Changes in the aorta. AXILLAE: Within normal limits. No lymphadenopathy. MUSCULOSKELETAL: Within normal limits for patient age. MISCELLANEOUS: The visualized upper abdominal organs demonstrate no acute abnormality. CONCLUSION: 1. Bilateral [id number] pleural effusions right greater than left. 2. Consolidation in the right lower lobe. 3. Mild cardiomegaly. Keaton Montalvo MD on July 29, 2017 at 20:55 Board Certified Radiologist. This report was verified electronically.
[2017-07-29 21:45] LABS: BLOOD GAS BASE EXCESS 3.4 mmol/L (-2-2); BLOOD GAS CARBOXYHEMOGLOBIN 0.6 % (0-4); BLOOD GAS HCO3 31 mmol/L (22-26); BLOOD GAS METHEMOGLOBIN 1.3 % (0-2); BLOOD GAS O2 HGB SATURATION 94 % (90-100); BLOOD GAS PCO2 82 mmHg (38-42); BLOOD GAS PO2 88 mmHg (61-120); BLOOD GAS TOTAL HGB 12.1 G/DL (12.0-16.0); CRITICAL VALUE YES; TEMP CORR TO 98.6
[2017-07-29 21:46] LABS: DRAW SITE RT RADIAL; LITER FLOW 6 L/M; NUMBER OF ARTERIAL PUNCTURES 1; OXYGEN DEVICE NASAL CANNULA; STAT NO; ULNAR PULSE PRESENT
[2017-07-29] MEDS: methylPREDNISolone SOD SUCC 40 MG/1 ML VIAL IV PUSH SCH (22:38)
[2017-07-29] MEDS: LORazepam 2 MG/ML VIAL IV PUSH PRN (22:39)
[2017-07-29] MEDS: DONEPEZIL HCL 5 MG TAB PO SCH (22:40)
[2017-07-30] VITALS (17 sets, daily range): BP systolic 162–186; BP diastolic 75–93; PULSE 92–109; RESP 24–30; TEMP 98–98.8; O2SAT 89–99
[2017-07-30 02:06] LABS: BLOOD GAS CARBOXYHEMOGLOBIN 0.8 % (0-4); BLOOD GAS HCO3 31 mmol/L (22-26); BLOOD GAS METHEMOGLOBIN 1.3 % (0-2); BLOOD GAS O2 HGB SATURATION 94 % (90-100); BLOOD GAS OXYGEN CONTENT 15.5 Vol % (12.0-20.0); BLOOD GAS PCO2 65 mmHg (38-42); BLOOD GAS PO2 82 mmHg (61-120); BLOOD GAS TOTAL HGB 11.7 G/DL (12.0-16.0); CRITICAL VALUE YES; DRAW SITE RT BRACHIAL; FIO2 40 %; NUMBER OF ARTERIAL PUNCTURES 2; OXYGEN DEVICE BiPAP; STAT NO; TEMP CORR TO 98.6; VENT SETTINGS 10IPAP/5EPAP
[2017-07-30] MEDS: RESP: ALBUTEROL 2.5 MG/IPRATROPIUM 0.5 MG NEB (SCH) INH ×4 (03:17→20:25)
[2017-07-30] MEDS: CHLORHEXIDINE GLUCONATE 2 % 1 PACK (2 CLOTHS) TOP SCH ×2 (04:00→19:45)
[2017-07-30] MEDS: INSULIN NovoLIN REGULAR SUPPLEMENTAL SCALE SQ SCH ×5 (06:00→22:37)
--- NOTE | 2017-07-30 06:22 | MB ---
cc: ADIN BEEBE DATE OF CONSULTATION 07/29/2017 REASON FOR CONSULTATION Respiratory failure and pneumonia. HISTORY OF PRESENT ILLNESS This is a 76-year-old white female who has a past history for coronary artery disease, hypertension, dementia and COPD, was brought in from the intermediate with altered consciousness and respiratory failure. The patient was obtunded, lethargic and hypoxic upon arrival in the ER. She was initially placed on a non-rebreather mask and subsequently switched to a nasal cannula. The patient then was transferred to the intensive care unit and a chest x-ray apparently did show evidence of probable pneumonia. The patient became hypotensive after admission and bradycardic and had to be given IV fluids for hydration, pressors and broad-spectrum antibiotic coverage and also had a central line inserted. She was on vancomycin and Zosyn and had to be intubated, placed on ventilator support. The blood gases did improve after ventilator support. FIO2 was gradually reduced over the next 24 hours and the patient has now been extubated, placed on nasal cannula O2 and she seems somewhat lethargic but responsive and does occasionally answer a question but denies any pain. She remains mildly tachypneic and she has had no nausea or vomiting and he is able to take pureed liquids. PAST HISTORY The patient's past history includes - 1. Hypertension. 2. Dementia. 3. History of pneumonia. 4. Hyperglycemia. 5. History of urinary tract infection. 6. Hyperlipidemia. 7. Coronary artery disease. ALLERGIES No drug allergies have been listed. PAST SURGICAL HISTORY Unavailable. FAMILY HISTORY Noncontributory. SOCIAL HISTORY The patient does have a prior history of smoking and no significant alcohol. SYSTEMS REVIEW The patient is still lethargic and does not give any meaningful responses to questions or commands. PHYSICAL EXAMINATION GENERAL: This averagely built elderly lady is sitting in bed, pale and mildly tachypneic. SKIN: Turgor is diminished. VITAL SIGNS: Blood pressure 126/70, pulse is 80, respirations 22-24, temperature 98.2. HEENT: Head normocephalic. Pupils are reactive. Sclerae are injected. Tongue was dry. Throat has a few secretions. Nasal mucosa is clear. Ears - No inflammation. NECK: Supple. No bruits or thyroid enlargement. CHEST: Decreased breath sounds at the bases with occasional basilar crackles. Occasional wheezes are also heard in the upper chest. HEART SOUNDS: Irregular S1 and S2. No murmur. No S3. ABDOMEN: Soft, protuberant. No mass. No organomegaly. EXTREMITIES: Decreased pulses with reflexes 1+ and the patient does move her extremities with no gross motor deficits. IMPRESSION 1. Hypoxemic, hypercapnic respiratory failure, resolved. 2. COPD with chronic bronchitis and emphysema with acute exacerbation. 3. Basilar pneumonia. 4. Metabolic encephalopathy. 5. Dementia. 6. Severe sepsis and lactic acidosis. 7. Acute kidney injury. PLAN 1. The patient has been placed on O2 via nasal cannula at 4 liters, nebulized DuoNeb solution added q.i.d. and she will be continued on broad-spectrum antibiotic coverage as ordered including vancomycin and Zosyn. 2. Stool studies to be sent for C-diff. 3. The patient also be placed on Symbicort 160/4.5 two puffs twice a day. 4. Bedside pulmonary function study will be ordered when she is stable. 5. The patient will be started on physical therapy for ambulation. 6. Limit sedation and tranquilizers. 7. Incentive spirometry every 2 hours if she can cooperate. 8. Follow up chest x-ray and CBC with BMP. Thank you Dr. Quiroz for this consultation. Adin Beebe MD JVD/CONCEPCIÓN /11:31 PM /6:14 AM
[2017-07-30] MEDS: PIPERACIL-TAZO 3.375 GM PREMIX 50 ML IV SCH ×4 (06:23→19:45)
[2017-07-30] MEDS: HEPARIN SODIUM - SQ 10,000 UNITS/ML VIAL SQ SCH ×3 (06:24→19:43)
[2017-07-30] MEDS: LORazepam 2 MG/ML VIAL IV PUSH PRN (07:54)
--- NOTE | 2017-07-30 08:27 | HHI.PR ---
Subjective Remarks academic program specialist Notes: All history is obtained from ED chart review. Patient is intubated sedated. Patient is a 76-year-old female history of dementia, hypertension, hyperlipidemia, coronary artery disease, COPD, who presented from the retirement with decreased level of consciousness. Paramedics found her lethargic and obtunded, hypoxemic. She was placed on NRB placed a nonrebreather and brought to the ED. In the ED patient was unresponsive, SaO2 98-99%. She was taken off the nonrebreather and placed on a nasal cannula. ABG- pH of 7.041. PCO2 was 122 and PO2 was 94.5. Temp was 91.8 and Patient was placed on warming blanket, warm IVD fluids were initiated. She was intubated for severe hypercapnic respiratory failure. Her urinalysis shows evidence of a UTI and her chest x-ray shows probable pneumonia. Received Zosyn and azithromycin. Lactate was 5.6. [facility] requested to admit I evaluated the patent immediately in ICU. Patient was severely bradycardic, HR in mid 20s and blood pressure was not recordable, but had palpable pulse. No response to atropine. I ordered 0.5 mg epinephrine, IVF 3L boluses and Levophed started. Patients BP improved with above measures and I placed an emergent L subclavian central line. Her home medications and hypercapnic resp failure indicated COPD exacerbation in addition to septic shock. I have started IV steroids and will continue Vanc and Zosyn, scheduled and PRN DuoNeb. Also Minute ventilation adjusted to correct hypercapnia and severe acidosis SUBJ: Patient remains intubated sedated. On sedation hold and attended CPAP became very tachypneic and agitated, repeatedly placed back on ACV mechanical ventilation. FiO2 at 45%. Off Lveophed 07/28: Clinically improved. Following commands, tolerated CPAP on Precedex. We' ll get weaning parameters and possible extubation. Remains on Precedex. Urine output adequate 07/29: Extubated yesterday tolerated well respiratory ha. Had anxiety and agitation yesterday and started on Precedex currently on 0.3 mics per kg per hour. Following commands oriented to person and place Hospitalist Notes: 07/30: Patient seen in her bedroom discussed with nurse at this time with oxygen desaturation in 84%, on BiPAP discussed with Straightening Press Operator Doctor Faheem Wayne the patient was discussed with her Health Care decision Maker but was not possible to make the patient DNR, awaiting for Chief Radiology order, at this time stable on BiPAP her oxygen saturation improving to 91%, no nausea, vomit or diarrhea. Objective Vital Signs Date Time Temp Pulse Resp B/P (MAP) Pulse Ox O2 Delivery O2 Flow Rate FiO2 07/30/17 08:04 98.4 98 30 175/80 (111) 89 07/30/17 08:00 92 07/30/17 06:00 92 07/30/17 04:30 97 40 07/30/17 04:00 98.4 107 30 174/80 (111) 89 07/30/17 04:00 107 07/30/17 00:12 96 40 07/30/17 00:00 100 07/30/17 00:00 98.8 100 24 162/75 (104) 98 07/29/17 22:36 100 40 07/29/17 22:00 100 07/29/17 21:10 94 Nasal Cannula 6.00 07/29/17 20:00 98.2 110 28 177/79 (111) 90 07/29/17 20:00 100 07/29/17 16:00 97.9 93 24 98/55 (69) 07/29/17 16:00 93 07/29/17 14:12 121 07/29/17 14:00 98.1 101 33 114/62 (79) 75 07/29/17 14:00 101 07/29/17 13:00 92 07/29/17 13:00 97.9 92 31 122/61 (81) 92 07/29/17 12:00 86 07/29/17 12:00 97.5 86 29 121/75 (90) 98 07/29/17 11:00 83 07/29/17 11:00 97.9 83 17 123/58 (79) 96 07/29/17 10:00 98.1 85 19 122/58 (79) 96 07/29/17 10:00 85 07/29/17 09:16 99 Nasal Cannula 2.00 07/29/17 09:00 98.1 84 20 120/58 (78) 98 I/O 07/29/17 07/29/17 07/29/17 07/30/17 07/30/17 07/30/17 07:00 15:00 23:00 07:00 15:00 23:00 Intake Total 548 ml 890 ml 185 ml Output Total 350 ml 350 ml 300 ml Balance 198 ml 540 ml -115 ml Intake Oral 840 ml 50 ml IV Total 548 ml 50 ml 135 ml Output Urine Total 350 ml 350 ml 300 ml Result Diagram: 07/29/17 0519 07/29/17 0519 Imaging Last Impressions Chest CT 07/29/17 1808 Signed Impressions: Service Date/Time: July 20:44 - CONCLUSION: 1. Bilateral [id number] pleural effusions right greater than left. 2. Consolidation in the right lower lobe. 3. Mild cardiomegaly. Keaton Montalvo MD Chest X-Ray 07/27/17 0000 Signed Impressions: Service Date/Time: Thursday, July 27, 2017 12:44 - CONCLUSION: 1. Multiple tubes and lines are stable. 2. Bibasilar patchiness consistent with atelectasis and/or mild infiltrates. Clinical correlation is recommended. John Ferris MD Head CT 07/26/17 0824 Signed Impressions: Service Date/Time: Wednesday, July 26, 2017 09:14 - CONCLUSION: 1. No evidence of acute intracranial pathology. No masses are identified.8 Sukhjinder Bhakta MD Procedures Endotracheal Intubation and Extubation Other Results Laboratory Tests Test 07/26/17 08:05 07/26/17 12:10 07/26/17 17:08 07/27/17 04:40 Neutrophils (%) (Auto) 76.6 % Lymphocytes (%) (Auto) 11.7 % Monocytes (%) (Auto) 10.4 % Eosinophils (%) (Auto) 0.4 % Basophils (%) (Auto) 0.9 % Neutrophils # (Auto) 9.6 TH/MM3 Lymphocytes # (Auto) 1.5 TH/MM3 Monocytes # (Auto) 1.3 TH/MM3 Eosinophils # (Auto) 0.0 TH/MM3 Basophils # (Auto) 0.1 TH/MM3 CBC Comment DIFF FINAL Differential Comment Urine Color YELLOW Urine Turbidity HAZY Urine pH 5.5 Urine Specific [place] 1.018 Urine Protein 30 mg/dL Urine Glucose (UA) 300 mg/dL Urine Ketones NEG mg/dL Urine Occult Blood NEG Urine Nitrite NEG Urine Bilirubin NEG Urine Urobilinogen LESS THAN 2.0 MG/DL Urine Leukocyte Esterase MOD Urine RBC LESS THAN 1 /hpf Urine WBC 12 /hpf Urine WBC Clumps FEW Urine Squamous Epithelial Cells 1 /hpf Urine Transitional Epithelial Cells <1 /hpf Urine Amorphous Sediment FEW Urine Bacteria OCC /hpf Microscopic Urinalysis Comment CATH-CULTURE IND Hemoglobin A1c 6.1 % Blood Urea Nitrogen 27 MG/DL 27 MG/DL Creatinine 1.41 MG/DL 0.94 MG/DL Random Glucose 323 MG/DL 112 MG/DL Total Protein 7.8 GM/DL 5.5 GM/DL Albumin 3.4 GM/DL Calcium Level 8.8 MG/DL 7.2 MG/DL Alkaline Phosphatase 90 U/L Aspartate Amino Transf (AST/SGOT) 54 U/L Alanine Aminotransferase (ALT/SGPT) 40 U/L Total Bilirubin 0.4 MG/DL Sodium Level 137 MEQ/L 144 MEQ/L Potassium Level 4.6 MEQ/L 4.0 MEQ/L Chloride Level 99 MEQ/L 110 MEQ/L Carbon Dioxide Level 25.5 MEQ/L 25.8 MEQ/L Total Creatine Kinase 91 U/L Troponin I 0.07 NG/ML Thyroid Stimulating Hormone 3rd Gen 1.530 uIU/ML Nasal Screen MRSA (PCR) MRSA DETECTED Phosphorus Level 1.9 MG/DL Magnesium Level 1.6 MG/DL Protein Corrected Calcium 8.1 MG/DL Test 07/27/17 15:55 07/28/17 09:55 07/29/17 05:19 07/29/17 21:35 Lactic Acid Level 0.9 mmol/L Stool C. difficile Toxin (PCR) NEGATIVE Stl C. difficile Toxin Epiderm 027 PRESUMPTIVE NEGATIVE White Blood Count 12.1 TH/MM3 Red Blood Count 4.08 MIL/MM3 Hemoglobin 12.1 GM/DL Hematocrit 38.1 % Mean Corpuscular Volume 93.4 FL Mean Corpuscular Hemoglobin 29.6 PG Mean Corpuscular Hemoglobin Concent 31.7 % Red Cell Distribution Width 16.0 % Platelet Count 244 TH/MM3 Mean Platelet Volume 8.8 FL Blood Urea Nitrogen 26 MG/DL Creatinine 0.91 MG/DL Random Glucose 139 MG/DL Calcium Level 8.0 MG/DL Sodium Level 147 MEQ/L Potassium Level 4.1 MEQ/L Chloride Level 109 MEQ/L Carbon Dioxide Level 29.0 MEQ/L Anion Gap 9 MEQ/L Estimat Glomerular Filtration Rate 60 ML/MIN Blood Gas Liter Flow 6 L/M Test 07/30/17 01:45 Blood Gas Puncture Site RT BRACHIAL Blood Gas Patient Temperature 98.6 Blood Gas HCO3 31 mmol/L Blood Gas Base Excess 5.0 mmol/L Blood Gas Oxygen Saturation 94 % Arterial Blood pH 7.30 Arterial Blood Partial Pressure CO2 65 mmHg Arterial Blood Partial Pressure O2 82 mmHg Arterial Blood Oxygen Content 15.5 Vol % Arterial Blood Carboxyhemoglobin 0.8 % Arterial Blood Methemoglobin 1.3 % Blood Gas Hemoglobin 11.7 G/DL Oxygen Delivery Device BiPAP Blood Gas Ventilator Setting 10IPAP/5EPAP Blood Gas Inspired Oxygen 40 % Objective Remarks GENERAL: Well-developed well-nourished patient on NC SKIN: Dry. HEAD: Atraumatic. Normocephalic. EYES: No scleral icterus. No injection or drainage. ENT: Mucous membranes dry. NECK: Trachea midline. Supple. CARDIOVASCULAR: Regular rate and rhythm. No murmur appreciated. tachycardia positive. RESPIRATORY: Severe decreased breath sounds bilateral. mild expiratory Wheezing , No crackles. GASTROINTESTINAL: Abdomen soft, non-tender, nondistended. Hepatic and splenic margins not palpable. MUSCULOSKELETAL: No obvious deformities. No clubbing. No cyanosis. No edema. NEUROLOGICAL: Alert awake oriented to person and place, remains on Precedex. No focal deficits Medications and IVs Current Medications Medications (Trade) Dose Ordered Sig/Lili Route Start Time Stop Time Status Last Admin (NS Flush) 2 ml UNSCH PRN IV FLUSH 07/26/17 08:15 (Duoneb Neb) 1 ampule Q2HR NEB PRN INH 07/26/17 10:00 (D50w (Vial) Inj) 25 ml UNSCH PRN IV PUSH 07/26/17 10:00 (NovoLIN R SUPPLEMENTAL SCALE) 1 Q6HR SQ 07/26/17 12:00 07/29/17 12:00 (Peridex 0.12% Liq) 15 ml BID@08,20 MT 07/26/17 20:00 07/28/17 09:25 (Tylenol) 650 mg Q6H PRN PO 07/26/17 11:00 07/27/17 13:25 (Zofran Inj) 4 mg Q6H PRN IV PUSH 07/26/17 11:00 (Heparin Inj) 5,000 units Q8H SQ 07/26/17 12:00 07/30/17 06:24 Miscellaneous Information 1 Q361D XX 07/26/17 10:00 07/26/17 13:33 (Chlorhexidine 2% Cloth) 3 pack Taper DAILY@04 TOP 07/27/17 04:00 07/23/18 03:59 07/30/17 04:00 (Chlorhexidine 2% Cloth) 3 pack UNSCH PRN TOP 07/26/17 10:00 (Hedy-Colace) 1 tab BID PO 07/26/17 21:00 07/29/17 22:40 (Milk Of Magnesia Liq) 30 ml Q12H PRN PO 07/26/17 10:00 (Senokot) 17.2 mg Q12H PRN PO 07/26/17 10:00 (Dulcolax Supp) 10 mg DAILY PRN RECTAL 07/26/17 10:00 (Lactulose Liq) 30 ml DAILY PRN PO 07/26/17 10:00 (Ecotrin Ec) 81 mg DAILY PO 07/26/17 13:15 07/29/17 07:46 Potassium Chloride 100 ml @ 50 mls/hr Q2H PRN IV 07/26/17 13:30 Potassium Chloride 100 ml @ 50 mls/hr Q2H PRN IV 07/26/17 13:30 (K-Lyte Cl Eff) 50 meq UNSCH PRN PO 07/26/17 13:30 Potassium Chloride 100 ml @ 25 mls/hr UNSCH PRN IV 07/26/17 13:30 Potassium Chloride 100 ml @ 50 mls/hr Q2H PRN IV 07/26/17 13:30 Magnesium Sulfate 4 gm/Sodium Chloride 100 ml @ 50 mls/hr UNSCH PRN IV 07/26/17 13:30 (Mag-Ox) 800 mg UNSCH PRN PO 07/26/17 13:30 Magnesium Sulfate 2 gm/Sodium Chloride 100 ml @ 50 mls/hr UNSCH PRN IV 07/26/17 13:30 (K-Phos) 2,000 mg Q4H PRN PO 07/26/17 13:30 Sodium Phosphate 30 mmol/Sodium Chloride 250 ml @ 42 mls/hr UNSCH PRN IV 07/26/17 13:30 (K-Phos) 2,000 mg UNSCH PRN PO/TUBE 07/26/17 13:30 Potassium Phosphate 30 mmol/ Sodium Chloride 260 ml @ 42 mls/hr UNSCH PRN IV 07/26/17 13:30 Vasopressin 40 units/Dextrose 100 ml @ 1.5 mls/hr Q24H IV 07/26/17 14:14 Piperacillin Sod/ Tazobactam Sod 50 ml @ 100 mls/hr Q6H IV 07/27/17 16:00 07/30/17 06:23 (Pepcid) 20 mg BID PO 07/28/17 21:00 07/29/17 22:40 (Haldol Inj) 2 mg Q4H PRN IV 07/28/17 15:00 07/28/17 16:50 (Ativan Inj) 1 mg Q2H PRN IV PUSH 07/28/17 17:30 07/30/17 07:54 (Duoneb Neb) 1 ampule Q6HR NEB INH 07/29/17 16:00 07/30/17 03:17 (Spiriva Inh) 18 mcg DAILY INH 07/29/17 15:00 07/29/17 16:28 (Symbicort 160-4.5 Inh) 1 puff Q12HR INH 07/29/17 15:00 07/29/17 16:29 (Xanax) 0.5 mg Q8H PRN PO 07/29/17 14:30 07/29/17 14:35 (Aricept) 10 mg HS PO 07/29/17 21:00 07/29/17 22:40 (Zoloft) 25 mg DAILY PO 07/29/17 14:30 07/29/17 14:35 (SoluMEDROL INJ) 40 mg Q12HR IV PUSH 07/29/17 21:00 07/29/17 22:38 A/P Assessment and Plan 1. Acute Metabolic Encephalopathy/CO2 Narcosis/Dementia by history resumed Aricept, Sertraline and when necessary Xanax 2. Acute Hypoxemic and Hypercarbic respiratory failure/Healthcare associated Pneumonia/COPD exacerbation Extubated 07/28/17, continue bronchodilator, Mucolytic and incentive spirometry/Solu-Medrol 60 mg every 12 hours Broad spectrum antibiotics Zosyn, web content specialist following Doctor Alka Zhao Oxygen desaturation in 84%, on BiPAP discussed with Straightening Press Operator Doctor Faheem Wayne the patient was discussed with her Health Care decision Maker but was not possible to make the patient DNR, awaiting for Chief Radiology order, at this time stable on BiPAP. Improving oxygen saturation 3. Septic Shock resolved/Severe Bradycardia/lactic acidosis on admission patient required Epinephrine and Atropine now off pressors 4. Acute Kidney Injury Resolved 5. UTI with Lactobacillus to continue Zosyn following blood cultures urine culture, sputum culture PROPH: - Bilateral lower extremity SCDs. Subcutaneous heparin, IV famotidine-change to po LINES: - Right subclavian central line placed 07/26/17-DCd Discharge Planning Once cleared by specialists. Humza Padilla MD Jul 30, 2017 08:27
[2017-07-30] MEDS: TIOTROPIUM BROMIDE 18 MCG INH INH SCH (09:00)
[2017-07-30] MEDS: methylPREDNISolone SOD SUCC 40 MG/1 ML VIAL IV PUSH SCH ×2 (09:45→19:43)
[2017-07-30] MEDS: HALOPERIDOL LACTATE 5 MG/ML AMP IV PRN ×2 (09:45→17:27)
[2017-07-30] MEDS: SERTRALINE HCL 50 MG TAB PO SCH (09:46)
[2017-07-30] MEDS: ASPIRIN EC 81 MG TABEC PO SCH (09:46)
[2017-07-30] MEDS: DOCUSATE SODIUM 50 MG/SENNA 8.6 MG TAB PO SCH ×2 (09:46→19:44)
[2017-07-30] MEDS: guaiFENesin E.R. 600 MG TAB PO SCH ×2 (09:47→19:44)
[2017-07-30] MEDS: FAMOTIDINE 20 MG TAB PO SCH ×2 (09:47→19:44)
[2017-07-30] MEDS ORDERED: HALOPERIDOL LACTATE 5 MG/ML AMP IV ONE (10:00)
[2017-07-30 11:53] LABS: BLOOD GAS BASE EXCESS 4.5 mmol/L (-2-2); BLOOD GAS CARBOXYHEMOGLOBIN 0.8 % (0-4); BLOOD GAS HCO3 30 mmol/L (22-26); BLOOD GAS METHEMOGLOBIN 1.4 % (0-2); BLOOD GAS O2 HGB SATURATION 93 % (90-100); BLOOD GAS OXYGEN CONTENT 15.4 Vol % (12.0-20.0); BLOOD GAS PCO2 56 mmHg (38-42); BLOOD GAS PO2 75 mmHg (61-120); BLOOD GAS TOTAL HGB 11.8 G/DL (12.0-16.0); TEMP CORR TO 98.6
[2017-07-30 11:54] LABS: CRITICAL VALUE YES; DRAW SITE LT BRACHIAL; FIO2 35 %; OXYGEN DEVICE BiPAP; VENT SETTINGS IPAP15/EPAP5
--- NOTE | 2017-07-30 11:54 | HHI.PR ---
Subjective Remarks She has deteriorated. Now on 70 % FIO2 , and in resp distress. Was placed on BiPAP and FIO2 50 %. ABG'S show hypercapnea. Objective Vital Signs Date Time Temp Pulse Resp B/P (MAP) Pulse Ox O2 Delivery O2 Flow Rate FiO2 07/30/17 08:56 90 60 07/30/17 08:42 90 BiPAP 60 07/30/17 08:04 98.4 98 30 175/80 (111) 89 07/30/17 08:00 92 07/30/17 06:00 92 07/30/17 04:30 97 40 07/30/17 04:00 98.4 107 30 174/80 (111) 89 07/30/17 04:00 107 07/30/17 00:12 96 40 07/30/17 00:00 100 07/30/17 00:00 98.8 100 24 162/75 (104) 98 07/29/17 22:36 100 40 07/29/17 22:00 100 07/29/17 21:10 94 Nasal Cannula 6.00 07/29/17 20:00 98.2 110 28 177/79 (111) 90 07/29/17 20:00 100 07/29/17 16:00 97.9 93 24 98/55 (69) 07/29/17 16:00 93 07/29/17 14:12 121 07/29/17 14:00 98.1 101 33 114/62 (79) 75 07/29/17 14:00 101 07/29/17 13:00 92 07/29/17 13:00 97.9 92 31 122/61 (81) 92 07/29/17 12:00 86 07/29/17 12:00 97.5 86 29 121/75 (90) 98 I/O 07/29/17 07/29/17 07/29/17 07/30/17 07/30/17 07/30/17 07:00 15:00 23:00 07:00 15:00 23:00 Intake Total 548 ml 890 ml 185 ml Output Total 350 ml 350 ml 300 ml Balance 198 ml 540 ml -115 ml Intake Oral 840 ml 50 ml IV Total 548 ml 50 ml 135 ml Output Urine Total 350 ml 350 ml 300 ml Result Diagram: 07/29/17 0507/29/17518 Procedures Endotracheal Intubation and Extubation Objective Remarks GENERAL: This averagely built elderly lady is sitting in bed, pale and tachypneic. SKIN: Turgor is diminished. HEENT: Head normocephalic. Pupils are reactive. Sclerae are injected. Tongue was dry. Throat has a few secretions. Nasal mucosa is clear. Ears - No inflammation. NECK: Supple. No bruits or thyroid enlargement. CHEST: Decreased breath sounds at the bases with occasional basilar crackles. Occasional wheezes are also heard in the upper chest. HEART SOUNDS: Irregular S1 and S2. No murmur. No S3. ABDOMEN: Soft, protuberant. No mass. No organomegaly. EXTREMITIES: Decreased pulses with reflexes 1+ and the patient does move her extremities with no gross motor deficits. Assessment and Plan Assessment and Plan IMPRESSION 1. Hypoxemic, hypercapnic respiratory failure, resolved. 2. COPD with chronic bronchitis and emphysema with acute exacerbation. 3. Basilar pneumonia. 4. Metabolic encephalopathy. 5. Dementia. 6. Severe sepsis and lactic acidosis. 7. Acute kidney injury. Plan : 1. Place on BIPAP 15/5, FIO2 40% 2. Continue Duoneb nebs qid. 3. Continue antibiotics. 4. ABG,CBC,BMP.CXR 5. PT Evaluation . 6. No sedation. 7. Poor prognosis/ Discussed with POA. 8. Add Solumedrol 40 mg IV Q8H. Romina Beebe MD Jul 30, 2017 11:54
[2017-07-30 11:55] LABS: NUMBER OF ARTERIAL PUNCTURES 1; STAT YES; ULNAR PULSE PRESENT
[2017-07-30 12:18] LABS: MEAN CELL VOLUME 94.8 FL (80.0-100.0); MEAN CORPUSCULAR HEMOGLOBIN 30.1 PG (27.0-34.0); MEAN CORPUSCULAR HGB CONC 31.8 % (32.0-36.0); PLATELET COUNT 252 TH/MM3 (150-450); RED BLOOD COUNT 3.91 MIL/MM3 (4.00-5.30); RED CELL DISTRIBUTION WIDTH 16.1 % (11.6-17.2); REVIEW FLAG FINAL; WHITE BLOOD COUNT 11.7 TH/MM3 (4.0-11.0)
[2017-07-30 12:47] LABS: BICARBONATE 30.6 MEQ/L (21.0-32.0); MAGNESIUM 2.6 MG/DL (1.5-2.5)
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
[2017-07-30] MEDS: VASOPRESSIN INJ 40 UNITS in DEXTROSE 5% IN WATER 100ML INJ 98 ML IV SCH ×2 (14:14)
[2017-07-30] MEDS: CHLORHEXIDINE 0.12% (ORAL KIT) 15 ML CUP MT SCH (19:15)
[2017-07-30] MEDS: DONEPEZIL HCL 5 MG TAB PO SCH (19:44)
[2017-07-30] MEDS: BUDESONIDE-FORMOTEROL 160/4.5 MCG INHALER INH SCH (19:45)
[2017-07-31] VITALS (15 sets, daily range): BP systolic 105–188; BP diastolic 54–96; PULSE 98–116; RESP 15–36; TEMP 98–99.9; O2SAT 94–100
[2017-07-31] MEDS: hydrALAZINE HCL 20 MG/ML VIAL IV PUSH PRN ×2 (00:31→09:13)
[2017-07-31] MEDS: PIPERACIL-TAZO 3.375 GM PREMIX 50 ML IV SCH ×6 (02:12→22:00)
[2017-07-31] MEDS: HEPARIN SODIUM - SQ 10,000 UNITS/ML VIAL SQ SCH ×3 (02:12→21:51)
[2017-07-31] MEDS: RESP: ALBUTEROL 2.5 MG/IPRATROPIUM 0.5 MG NEB (SCH) INH ×4 (03:43→19:53)
[2017-07-31] MEDS: LORazepam 2 MG/ML VIAL IV PUSH PRN ×3 (04:23→18:24)
[2017-07-31] MEDS: HALOPERIDOL LACTATE 5 MG/ML AMP IV PRN (05:44)
[2017-07-31] MEDS: INSULIN NovoLIN REGULAR SUPPLEMENTAL SCALE SQ SCH ×4 (06:00→23:57)
[2017-07-31] MEDS: CHLORHEXIDINE 0.12% (ORAL KIT) 15 ML CUP MT SCH ×2 (09:11→20:00)
[2017-07-31] MEDS: guaiFENesin E.R. 600 MG TAB PO SCH ×2 (09:12→21:00)
[2017-07-31] MEDS: FAMOTIDINE 20 MG TAB PO SCH ×2 (09:12→21:52)
[2017-07-31] MEDS: ASPIRIN EC 81 MG TABEC PO SCH (09:12)
[2017-07-31] MEDS: SERTRALINE HCL 50 MG TAB PO SCH (09:12)
[2017-07-31] MEDS: DOCUSATE SODIUM 50 MG/SENNA 8.6 MG TAB PO SCH ×2 (09:12→21:52)
[2017-07-31] MEDS: TIOTROPIUM BROMIDE 18 MCG INH INH SCH (09:13)
[2017-07-31] MEDS: methylPREDNISolone SOD SUCC 40 MG/1 ML VIAL IV PUSH SCH ×2 (09:13→21:51)
[2017-07-31] MEDS: BUDESONIDE-FORMOTEROL 160/4.5 MCG INHALER INH SCH ×2 (09:13→21:51)
[2017-07-31] MEDS ORDERED: HEPARIN-D5W 25,000 U/250 ML 250 ML IV PRN (09:30)
[2017-07-31] MEDS ORDERED: HEPARIN SODIUM - IV 10,000 UNITS/10 ML VIAL IV PUSH ONE (09:30)
--- NOTE | 2017-07-31 10:19 | HHI.PR ---
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 Patient is intubated sedated. Patient is a 76-year-old female history of dementia, hypertension, hyperlipidemia, coronary artery disease, COPD, who presented from the [place] [facility] with decreased level of consciousness. Paramedics found her lethargic and obtunded, hypoxemic. She was placed on NRB placed a nonrebreather and brought to the ED. In the ED patient was unresponsive, SaO2 98-99%. She was taken off the nonrebreather and placed on a nasal cannula. ABG- pH of 7.041. PCO2 was 122 and PO2 was 94.5. Temp was 91.8 and Patient was placed on warming blanket, warm IVD fluids were initiated. She was intubated for severe hypercapnic respiratory failure. Her urinalysis shows evidence of a UTI and her chest x-ray shows probable pneumonia. Received Zosyn and azithromycin. Lactate was 5.6. [facility] requested to admit I evaluated the patent immediately in ICU. Patient was severely bradycardic, HR in mid 20s and blood pressure was not recordable, but had palpable pulse. No response to atropine. I ordered 0.5 mg epinephrine, IVF 3L boluses and Levophed started. Patients BP improved with above measures and I placed an emergent L subclavian central line. Her home medications and hypercapnic resp failure indicated COPD exacerbation in addition to septic shock. I have started IV steroids and will continue Vanc and Zosyn, scheduled and PRN DuoNeb. Also Minute ventilation adjusted to correct hypercapnia and severe acidosis SUBJ: Patient remains intubated sedated. On sedation hold and attended CPAP became very tachypneic and agitated, repeatedly placed back on ACV mechanical ventilation. FiO2 at 45%. Off Lveophed 07/28: Clinically improved. Following commands, tolerated CPAP on Precedex. We' ll get weaning parameters and possible extubation. Remains on Precedex. Urine output adequate 07/29: Extubated yesterday tolerated well respiratory ha. Had anxiety and agitation yesterday and started on Precedex currently on 0.3 mics per kg per hour. Following commands oriented to person and place Hospitalist Notes: 07/30: Patient seen in her bedroom discussed with nurse at this time with oxygen desaturation in 84%, on BiPAP discussed with Parcel Post Clerk Doctor Faheem Wayne the patient was discussed with her Health Care decision Maker but was not possible to make the patient DNR, awaiting for Appointment Scheduler order, at this time stable on BiPAP her oxygen saturation improving to 91%. 07/31: Stable in her bedroom, discussed with nurse Miss Cooper no nausea, vomit or diarrhea, patient eating her breakfast but needs to be on non rebreather mask due to easy desaturation. Objective Vital Signs Date Time Temp Pulse Resp B/P (MAP) Pulse Ox O2 Delivery O2 Flow Rate FiO2 07/31/17 08:05 97 35 07/31/17 06:00 105 07/31/17 04:00 98.3 115 23 170/77 (108) 98 07/31/17 04:00 115 07/31/17 03:44 100 40 07/31/17 02:00 115 07/31/17 00:18 98 35 07/31/17 00:00 105 07/31/17 00:00 98.0 105 22 188/96 (126) 97 07/30/17 22:00 109 07/30/17 20:25 97 35 07/30/17 20:00 108 07/30/17 20:00 98.0 108 25 170/93 (118) 98 07/30/17 16:00 92 07/30/17 16:00 98.6 100 26 186/88 (120) 99 07/30/17 14:00 92 07/30/17 13:15 98 35 07/30/17 12:00 98.4 98 30 170/80 (110) 89 07/30/17 12:00 92 I/O 07/30/17 07/30/17 07/30/17 07/31/17 07/31/17 07/31/17 07:00 15:00 23:00 07:00 15:00 23:00 Intake Total 185 ml 50 ml 150 ml 150 ml Output Total 300 ml 200 ml 400 ml Balance -115 ml 50 ml -50 ml -250 ml Intake Oral 50 ml 100 ml 100 ml IV Total 135 ml 50 ml 50 ml 50 ml Output Urine Total 300 ml 200 ml 400 ml Result Diagram: 07/30/17 1145 07/30/17 1145 Imaging Last Impressions Chest CT 07/29/17 0038 Signed Impressions: Service Date/Time: July 20:44 - CONCLUSION: 1. Bilateral [id number]-jqrnnsbs pleural effusions right greater than left. 2. Consolidation in the right lower lobe. 3. Mild cardiomegaly. Keaton Montalvo MD Chest X-Ray 07/27/17 0000 Signed Impressions: Service Date/Time: Thursday, July 27, 2017 12:44 - CONCLUSION: 1. Multiple tubes and lines are stable. 2. Bibasilar patchiness consistent with atelectasis and/or mild infiltrates. Clinical correlation is recommended. John Ferris MD Head CT 07/26/17 0824 Signed Impressions: Service Date/Time: Wednesday, July 26, 2017 09:14 - CONCLUSION: 1. No evidence of acute intracranial pathology. No masses are identified.8 Sukhjinder Bhakta MD Procedures Endotracheal Intubation and Extubation Other Results Laboratory Tests Test 07/26/17 08:05 07/26/17 12:10 07/27/17 04:40 07/27/17 15:55 Neutrophils (%) (Auto) 76.6 % Lymphocytes (%) (Auto) 11.7 % Monocytes (%) (Auto) 10.4 % Eosinophils (%) (Auto) 0.4 % Basophils (%) (Auto) 0.9 % Neutrophils # (Auto) 9.6 TH/MM3 Lymphocytes # (Auto) 1.5 TH/MM3 Monocytes # (Auto) 1.3 TH/MM3 Eosinophils # (Auto) 0.0 TH/MM3 Basophils # (Auto) 0.1 TH/MM3 CBC Comment DIFF FINAL Differential Comment Urine Color YELLOW Urine Turbidity HAZY Urine pH 5.5 Urine Specific Mcfall 1.018 Urine Protein 30 mg/dL Urine Glucose (UA) 300 mg/dL Urine Ketones NEG mg/dL Urine Occult Blood NEG Urine Nitrite NEG Urine Bilirubin NEG Urine Urobilinogen LESS THAN 2.0 MG/DL Urine Leukocyte Esterase MOD Urine RBC LESS THAN 1 /hpf Urine WBC 12 /hpf Urine WBC Clumps FEW Urine Squamous Epithelial Cells 1 /hpf Urine Transitional Epithelial Cells <1 /hpf Urine Amorphous Sediment FEW Urine Bacteria OCC /hpf Microscopic Urinalysis Comment CATH-CULTURE IND Hemoglobin A1c 6.1 % Blood Urea Nitrogen 27 MG/DL 27 MG/DL Creatinine 1.41 MG/DL 0.94 MG/DL Random Glucose 323 MG/DL 112 MG/DL Total Protein 7.8 GM/DL 5.5 GM/DL Albumin 3.4 GM/DL Calcium Level 8.8 MG/DL 7.2 MG/DL Alkaline Phosphatase 90 U/L Aspartate Amino Transf (AST/SGOT) 54 U/L Alanine Aminotransferase (ALT/SGPT) 40 U/L Total Bilirubin 0.4 MG/DL Sodium Level 137 MEQ/L 144 MEQ/L Potassium Level 4.6 MEQ/L 4.0 MEQ/L Chloride Level 99 MEQ/L 110 MEQ/L Carbon Dioxide Level 25.5 MEQ/L 25.8 MEQ/L Total Creatine Kinase 91 U/L Troponin I 0.07 NG/ML Thyroid Stimulating Hormone 3rd Gen 1.530 uIU/ML Nasal Screen MRSA (PCR) MRSA DETECTED Protein Corrected Calcium 8.1 MG/DL Lactic Acid Level 0.9 mmol/L Test 07/28/17 09:55 07/29/17 21:35 07/30/17 11:35 07/30/17 11:45 Stool C. difficile Toxin (PCR) NEGATIVE Stl C. difficile Toxin Epiderm 027 PRESUMPTIVE NEGATIVE Blood Gas Liter Flow 6 L/M Blood Gas Puncture Site LT BRACHIAL Blood Gas Patient Temperature 98.6 Blood Gas HCO3 30 mmol/L Blood Gas Base Excess 4.5 mmol/L Blood Gas Oxygen Saturation 93 % Arterial Blood pH 7.35 Arterial Blood Partial Pressure CO2 56 mmHg Arterial Blood Partial Pressure O2 75 mmHg Arterial Blood Oxygen Content 15.4 Vol % Arterial Blood Carboxyhemoglobin 0.8 % Arterial Blood Methemoglobin 1.4 % Blood Gas Hemoglobin 11.8 G/DL Oxygen Delivery Device BiPAP Blood Gas Ventilator Setting IPAP15/EPAP5 Blood Gas Inspired Oxygen 35 % White Blood Count 11.7 TH/MM3 Red Blood Count 3.91 MIL/MM3 Hemoglobin 11.8 GM/DL Hematocrit 37.0 % Mean Corpuscular Volume 94.8 FL Mean Corpuscular Hemoglobin 30.1 PG Mean Corpuscular Hemoglobin Concent 31.8 % Red Cell Distribution Width 16.1 % Platelet Count 252 TH/MM3 Mean Platelet Volume 8.6 FL Blood Urea Nitrogen 25 MG/DL Creatinine 0.88 MG/DL Random Glucose 82 MG/DL Calcium Level 8.2 MG/DL Phosphorus Level 2.4 MG/DL Magnesium Level 2.6 MG/DL Sodium Level 146 MEQ/L Potassium Level 4.0 MEQ/L Chloride Level 108 MEQ/L Carbon Dioxide Level 30.6 MEQ/L Anion Gap 7 MEQ/L Estimat Glomerular Filtration Rate 62 ML/MIN Objective Remarks GENERAL: Well-developed well-nourished patient on PA SKIN: Dry. HEAD: Atraumatic. Normocephalic. EYES: No scleral icterus. No injection or drainage. ENT: Mucous membranes dry. NECK: Trachea midline. Supple. CARDIOVASCULAR: Regular rate and rhythm. No murmur appreciated. tachycardia positive. RESPIRATORY: Severe decreased breath sounds bilateral. mild expiratory Wheezing , No crackles. GASTROINTESTINAL: Abdomen soft, non-tender, nondistended. Hepatic and splenic margins not palpable. MUSCULOSKELETAL: No obvious deformities. No clubbing. No cyanosis. No edema. NEUROLOGICAL: Alert awake oriented to person and place, remains on Precedex. No focal deficits Medications and IVs Current Medications Medications (Trade) Dose Ordered Sig/Lili Route Start Time Stop Time Status Last Admin (NS Flush) 2 ml UNSCH PRN IV FLUSH 07/26/17 08:15 (Duoneb Neb) 1 ampule Q2HR NEB PRN INH 07/26/17 10:00 (D50w (Vial) Inj) 25 ml UNSCH PRN IV PUSH 07/26/17 10:00 07/31/17 00:31 (NovoLIN R SUPPLEMENTAL SCALE) 1 Q6HR SQ 07/26/17 12:00 07/29/17 12:00 (Peridex 0.12% Liq) 15 ml BID@08,20 MT 07/26/17 20:00 07/31/17 09:11 (Tylenol) 650 mg Q6H PRN PO 07/26/17 11:00 07/27/17 13:25 (Zofran Inj) 4 mg Q6H PRN IV PUSH 07/26/17 11:00 (Heparin Inj) 5,000 units Q8H SQ 07/26/17 12:00 07/31/17 02:12 Miscellaneous Information 1 Q361D XX 07/26/17 10:00 07/26/17 13:33 (Chlorhexidine 2% Cloth) 3 pack Taper DAILY@04 TOP 07/27/17 04:00 07/23/18 03:59 07/30/17 19:45 (Chlorhexidine 2% Cloth) 3 pack UNSCH PRN TOP 07/26/17 10:00 (Hedy-Colace) 1 tab BID PO 07/26/17 21:00 07/31/17 09:12 (Milk Of Magnesia Liq) 30 ml Q12H PRN PO 07/26/17 10:00 (Senokot) 17.2 mg Q12H PRN PO 07/26/17 10:00 (Dulcolax Supp) 10 mg DAILY PRN RECTAL 07/26/17 10:00 (Lactulose Liq) 30 ml DAILY PRN PO 07/26/17 10:00 (Ecotrin Ec) 81 mg DAILY PO 07/26/17 13:15 07/31/17 09:12 Potassium Chloride 100 ml @ 50 mls/hr Q2H PRN IV 07/26/17 13:30 Potassium Chloride 100 ml @ 50 mls/hr Q2H PRN IV 07/26/17 13:30 (K-Lyte Cl Eff) 50 meq UNSCH PRN PO 07/26/17 13:30 Potassium Chloride 100 ml @ 25 mls/hr UNSCH PRN IV 07/26/17 13:30 Potassium Chloride 100 ml @ 50 mls/hr Q2H PRN IV 07/26/17 13:30 Magnesium Sulfate 4 gm/Sodium Chloride 100 ml @ 50 mls/hr UNSCH PRN IV 07/26/17 13:30 (Mag-Ox) 800 mg UNSCH PRN PO 07/26/17 13:30 Magnesium Sulfate 2 gm/Sodium Chloride 100 ml @ 50 mls/hr UNSCH PRN IV 07/26/17 13:30 (K-Phos) 2,000 mg Q4H PRN PO 07/26/17 13:30 Sodium Phosphate 30 mmol/Sodium Chloride 250 ml @ 42 mls/hr UNSCH PRN IV 07/26/17 13:30 (K-Phos) 2,000 mg UNSCH PRN PO/TUBE 07/26/17 13:30 Potassium Phosphate 30 mmol/ Sodium Chloride 260 ml @ 42 mls/hr UNSCH PRN IV 07/26/17 13:30 Vasopressin 40 units/Dextrose 100 ml @ 1.5 mls/hr Q24H IV 07/26/17 14:14 Piperacillin Sod/ Tazobactam Sod 50 ml @ 100 mls/hr Q6H IV 07/27/17 16:00 07/31/17 02:12 (Pepcid) 20 mg BID PO 07/28/17 21:00 07/31/17 09:12 (Haldol Inj) 2 mg Q4H PRN IV 07/28/17 15:00 07/31/17 05:44 (Ativan Inj) 1 mg Q2H PRN IV PUSH 07/28/17 17:30 07/31/17 04:23 (Duoneb Neb) 1 ampule Q6HR NEB INH 07/29/17 16:00 07/31/17 08:04 (Spiriva Inh) 18 mcg DAILY INH 07/29/17 15:00 07/31/17 09:13 (Symbicort 160-4.5 Inh) 1 puff Q12HR INH 07/29/17 15:00 07/31/17 09:13 (Xanax) 0.5 mg Q8H PRN PO 07/29/17 14:30 07/29/17 14:35 (Aricept) 10 mg HS PO 07/29/17 21:00 07/30/17 19:44 (Zoloft) 25 mg DAILY PO 07/29/17 14:30 07/31/17 09:12 (SoluMEDROL INJ) 40 mg Q12HR IV PUSH 07/29/17 21:00 07/31/17 09:13 (Mucinex Er) 600 mg BID PO 07/30/17 09:00 07/31/17 09:12 (Apresoline Inj) 10 mg Q6H PRN IV PUSH 07/30/17 23:00 07/31/17 09:13 A/P Assessment and Plan 1. Acute Metabolic Encephalopathy/CO2 Narcosis/Dementia by history resumed Aricept, Sertraline and when necessary Xanax 2. Acute Hypoxemic and Hypercarbic respiratory failure/Healthcare associated Pneumonia/COPD exacerbation/Basilar Pneumonia Bilateral Pleural Effusions. Extubated 07/28/17, continue bronchodilator, Mucolytic and incentive spirometry/Solu-Medrol 60 mg every 12 hours Broad spectrum antibiotics Zosyn, automotive brake specialist following Doctor Alka Zhao Oxygen desaturation in 84%, on BiPAP discussed with Parcel Post Clerk Doctor Faheem Wayne the patient was discussed with her Health Care decision Maker but was not possible to make the patient DNR, awaiting for Appointment Scheduler order next Wednesday08/02/17, off BiPAP at this time. 3. Septic Shock resolved/Severe Bradycardia/lactic acidosis on admission patient required Epinephrine and Atropine now off pressors 4. Acute Kidney Injury Resolved 5. UTI with Lactobacillus to continue Zosyn following blood cultures urine culture, sputum culture PROPH: - Bilateral lower extremity SCDs. Subcutaneous heparin, IV famotidine-change to po LINES: - Right subclavian central line placed 07/26/17-DCd Discharge Planning Once cleared by specialists. Humza Padilla MD Jul 31, 2017 10:19
[2017-07-31 13:04] LABS: HEMATOCRIT 35.9 % (35.0-46.0); MEAN CELL VOLUME 92.6 FL (80.0-100.0); MEAN CORPUSCULAR HEMOGLOBIN 29.9 PG (27.0-34.0); MEAN CORPUSCULAR HGB CONC 32.2 % (32.0-36.0); PLATELET COUNT 275 TH/MM3 (150-450); RED BLOOD COUNT 3.87 MIL/MM3 (4.00-5.30); REVIEW FLAG FINAL; WHITE BLOOD COUNT 10.7 TH/MM3 (4.0-11.0)
[2017-07-31 13:17] LABS: APTT (PATIENT) 24.6 SEC (24.3-30.1); PROTHROMBIN TIME - PATIENT 11.1 SEC (9.8-11.6)
[2017-07-31 13:38] LABS: BICARBONATE 35.1 MEQ/L (21.0-32.0); POTASSIUM 3.4 MEQ/L (3.5-5.1)
--- NOTE | 2017-07-31 13:39 | HHI.PR ---
Subjective Remarks She is on a NRB mask at 70 % FIO2 , and in mild respiratory distress. Was placed on BiPAP and FIO2 50 %, last PM ABG'S show hypercapnia. Objective Vital Signs Date Time Temp Pulse Resp B/P (MAP) Pulse Ox O2 Delivery O2 Flow Rate FiO2 07/31/17 12:05 94 Nasal Cannula 5.00 07/31/17 12:00 116 07/31/17 12:00 98.7 116 36 136/63 (87) 95 07/31/17 09:25 100 Non-Rebreather 15.00 07/31/17 08:05 97 35 07/31/17 08:00 98 07/31/17 08:00 99.9 98 15 172/83 (112) 99 07/31/17 06:00 105 07/31/17 04:00 98.3 115 23 170/77 (108) 98 07/31/17 04:00 115 07/31/17 03:44 100 40 07/31/17 02:00 115 07/31/17 00:18 98 35 07/31/17 00:00 105 07/31/17 00:00 98.0 105 22 188/96 (126) 97 07/30/17 22:00 109 07/30/17 20:25 97 35 07/30/17 20:00 108 07/30/17 20:00 98.0 108 25 170/93 (118) 98 07/30/17 16:00 92 07/30/17 16:00 98.6 100 26 186/88 (120) 99 07/30/17 14:00 92 I/O 07/30/17 07/30/17 07/30/17 07/31/17 07/31/17 07/31/17 07:00 15:00 23:00 07:00 15:00 23:00 Intake Total 185 ml 50 ml 150 ml 150 ml Output Total 300 ml 200 ml 400 ml Balance -115 ml 50 ml -50 ml -250 ml Intake Oral 50 ml 100 ml 100 ml IV Total 135 ml 50 ml 50 ml 50 ml Output Urine Total 300 ml 200 ml 400 ml Result Diagram: 07/31/17 1139 07/30/17 1145 Procedures Endotracheal Intubation and Extubation Objective Remarks GENERAL: This averagely built elderly lady is sitting in bed, pale and in mild distress SKIN: Turgor is good. HEENT: Head normocephalic. Pupils are reactive. Sclerae are iclear. Tongue was dry. Throat has a few secretions. Nasal mucosa is clear. Ears - No inflammation. NECK: Supple. No bruits or thyroid enlargement. CHEST: Decreased breath sounds at the bases with occasional basilar crackles. Occasional wheezes are also heard in the upper chest. HEART SOUNDS: Irregular S1 and S2. No murmur. No S3. ABDOMEN: Soft, protuberant. No mass. No organomegaly. EXTREMITIES: Decreased pulses with reflexes 1+ and the patient does move her extremities with no gross motor deficits.Mild edema. Assessment and Plan Assessment and Plan IMPRESSION 1. Hypoxemic, hypercapnic respiratory failure, resolved. 2. COPD with chronic bronchitis and emphysema with acute exacerbation. 3. Basilar pneumonia. 4. Metabolic encephalopathy. 5. Dementia. 6. Severe sepsis and lactic acidosis. 7. Acute kidney injury. 8. Pleural effusions. Plan : 1. Place on BIPAP 15/5, FIO2 40% at HS 2. Continue Duoneb nebs qid. 3. Continue antibiotics. 4. O2 at 5L N/C daytime 5. PT Evaluation . 6. Chest Xray in am 7. CBC ,BMP in am. 8. Add Solumedrol 40 mg IV Q8H. Romina Beebe MD Jul 31, 2017 13:39
[2017-07-31] MEDS: VASOPRESSIN INJ 40 UNITS in DEXTROSE 5% IN WATER 100ML INJ 98 ML IV SCH ×2 (14:14)
[2017-07-31] MEDS: SODIUM CHLOR 0.9% 1000 ML INJ 1,000 ML IV SCH ×2 (20:31→21:50)
[2017-07-31] MEDS: DONEPEZIL HCL 5 MG TAB PO SCH (21:51)
[2017-08-01] VITALS (15 sets, daily range): BP systolic 130–167; BP diastolic 63–81; PULSE 84–126; RESP 17–46; TEMP 98–104; O2SAT 94–100
[2017-08-01] MEDS: CHLORHEXIDINE GLUCONATE 2 % 1 PACK (2 CLOTHS) TOP SCH (04:00)
--- NOTE | 2017-08-01 04:08 | RADRPT ---
EXAM DATE/TIME: 08/01/2017 04:34 [place] COMPARISON: CHEST SINGLE AP, July 27, 2017, 12:44. INDICATIONS : Shortness of breath, possible pulmonary disease. MEDICAL HISTORY : Hypertension. Cardiovascular disease. SURGICAL HISTORY : None. ENCOUNTER: Subsequent ACUITY: 1 week PAIN SCORE: Non-responsive. LOCATION: Bilateral chest FINDINGS: Single AP view of the chest. Lines and tubes no longer seen. Increased bilateral lower lung zone pare nchymal opacity and small pleural effusions. Cardiomediastinal silhouette unchanged. No evidence of p neumothorax. CONCLUSION: Increased bilateral lower lung zone opacity indicating pulmonary edema, consolidation, or atelectasis . New small bilateral pleural effusions. Fili Warren MD on August 01, 2017 at 4:05 Board Certified Radiologist. This report was verified electronically.
[2017-08-01] MEDS: RESP: ALBUTEROL 2.5 MG/IPRATROPIUM 0.5 MG NEB (SCH) INH ×4 (04:19→21:13)
[2017-08-01] MEDS: HEPARIN SODIUM - SQ 10,000 UNITS/ML VIAL SQ SCH ×3 (04:43→20:00)
[2017-08-01] MEDS: PIPERACIL-TAZO 3.375 GM PREMIX 50 ML IV SCH ×4 (04:43→22:12)
[2017-08-01] MEDS: ACETAMINOPHEN 325 MG TAB PO PRN (05:07)
[2017-08-01] MEDS: INSULIN NovoLIN REGULAR SUPPLEMENTAL SCALE SQ SCH ×3 (06:00→17:49)
[2017-08-01 06:09] LABS: HEMATOCRIT 37.6 % (35.0-46.0); MEAN CORPUSCULAR HGB CONC 31.6 % (32.0-36.0); PLATELET COUNT 295 TH/MM3 (150-450); RED BLOOD COUNT 3.96 MIL/MM3 (4.00-5.30); REVIEW FLAG FINAL; WHITE BLOOD COUNT 8.6 TH/MM3 (4.0-11.0)
[2017-08-01 06:39] LABS: POTASSIUM 3.8 MEQ/L (3.5-5.1)
[2017-08-01] MEDS: FAMOTIDINE 20 MG TAB PO SCH ×2 (09:01→21:00)
[2017-08-01] MEDS: guaiFENesin E.R. 600 MG TAB PO SCH ×2 (09:01→22:12)
[2017-08-01] MEDS: TIOTROPIUM BROMIDE 18 MCG INH INH SCH (09:01)
[2017-08-01] MEDS: SERTRALINE HCL 50 MG TAB PO SCH (09:01)
[2017-08-01] MEDS: DOCUSATE SODIUM 50 MG/SENNA 8.6 MG TAB PO SCH ×2 (09:01→22:12)
[2017-08-01] MEDS: methylPREDNISolone SOD SUCC 40 MG/1 ML VIAL IV PUSH SCH ×2 (09:01→22:11)
[2017-08-01] MEDS: ASPIRIN EC 81 MG TABEC PO SCH (09:01)
[2017-08-01] MEDS: CHLORHEXIDINE 0.12% (ORAL KIT) 15 ML CUP MT SCH (09:02)
[2017-08-01] MEDS: BUDESONIDE-FORMOTEROL 160/4.5 MCG INHALER INH SCH ×2 (09:02→21:00)
--- NOTE | 2017-08-01 13:09 | HHI.PR ---
Subjective Remarks She is better and on o2 4 L and not in respiratory distress. CXR shows bilateral infiltrates.Confused. ABG'S show hypercapnia. Objective Vital Signs Date Time Temp Pulse Resp B/P (MAP) Pulse Ox O2 Delivery O2 Flow Rate FiO2 08/01/17 10:00 108 08/01/17 09:57 100 Nasal Cannula 4.00 08/01/17 08:00 108 08/01/17 08:00 98.0 108 20 167/74 (105) 100 08/01/17 06:16 24 08/01/17 06:00 119 08/01/17 04:00 98.4 84 28 164/77 (106) 99 08/01/17 04:00 84 08/01/17 02:00 102 08/01/17 00:04 98 35 08/01/17 00:00 98.2 109 19 142/69 (93) 97 08/01/17 00:00 109 07/31/17 22:00 113 07/31/17 20:00 109 07/31/17 20:00 98.5 109 16 105/58 (74) 98 07/31/17 19:56 100 Nasal Cannula 3.00 07/31/17 16:00 105 07/31/17 16:00 98.3 105 17 107/54 (71) 98 07/31/17 14:14 105 134/70 I/O 07/31/17 07/31/17 07/31/17 08/01/17 08/01/17 08/01/17 07:00 15:00 23:00 07:00 15:00 23:00 Intake Total 150 ml 50 ml 50 ml 240 ml Output Total 400 ml 950 ml 275 ml Balance -250 ml 50 ml -900 ml -35 ml Intake Oral 100 ml 240 ml IV Total 50 ml 50 ml 50 ml Output Urine Total 400 ml 950 ml 275 ml # Bowel Movements 1 Result Diagram: 08/01/17 0414 08/01/17 041 Procedures Endotracheal Intubation and Extubation Objective Remarks GENERAL: This averagely built elderly lady is sitting in bed, pale and in no distress SKIN: Turgor is good. HEENT: Head normocephalic. Pupils are reactive. Sclerae are clear. Tongue was dry. Throat clear. Nasal mucosa is clear. Ears - No inflammation. NECK: Supple. No bruits or thyroid enlargement. CHEST: Decreased breath sounds at the bases with occasional basilar crackles. Occasional wheezes are also heard in the upper chest. HEART SOUNDS: Irregular S1 and S2. No murmur. No S3. ABDOMEN: Soft, protuberant. No mass. No organomegaly. EXTREMITIES: Decreased pulses with reflexes 1+ and the patient does move her extremities with no gross motor deficits. Mild edema. Assessment and Plan Assessment and Plan IMPRESSION 1. Hypoxemic, hypercapnic respiratory failure, resolved. 2. COPD with chronic bronchitis and emphysema with acute exacerbation. 3. Basilar pneumonia. 4. Metabolic encephalopathy. 5. Dementia. 6. Severe sepsis and lactic acidosis. 7. Acute kidney injury.Resolved 8. Pleural effusions. Plan : 1. Place on BIPAP 15/5, FIO2 28 % at HS 2. Continue Duoneb nebs qid. 3. Continue antibiotics. 4. O2 at 2 L N/C daytime 5. PT Evaluation . 6. Add lasix 20 mg daily. 7. CBC ,BMP in am. 8. Cont Solumedrol 40 mg IV Q12H. Romina Beebe MD Aug 01, 2017 13:09
--- NOTE | 2017-08-01 13:40 | HHI.PR ---
Subjective Remarks medical specialist Notes: All history is obtained from ED chart review. Patient is intubated sedated. Patient is a 76-year-old female history of dementia, hypertension, hyperlipidemia, coronary artery disease, COPD, who [facility] with decreased level of consciousness. Paramedics found her lethargic and obtunded, hypoxemic. She was placed on NRB placed a nonrebreather and brought to the ED. In the ED patient was unresponsive, SaO2 98-99%. She was taken off the nonrebreather and placed on a nasal cannula. ABG- pH of 7.041. PCO2 was 122 and PO2 was 94.5. Temp was 91.8 and Patient was placed on warming blanket, warm IVD fluids were initiated. She was intubated for severe hypercapnic respiratory failure. Her urinalysis shows evidence of a UTI and her chest x-ray shows probable pneumonia. Received Zosyn and azithromycin. Lactate was 5.6. [facility] requested to admit I evaluated the patent immediately in ICU. Patient was severely bradycardic, HR in mid 20s and blood pressure was not recordable, but had palpable pulse. No response to atropine. I ordered 0.5 mg epinephrine, IVF 3L boluses and Levophed started. Patients BP improved with above measures and I placed an emergent L subclavian central line. Her home medications and hypercapnic resp failure indicated COPD exacerbation in addition to septic shock. I have started IV steroids and will continue Vanc and Zosyn, scheduled and PRN DuoNeb. Also Minute ventilation adjusted to correct hypercapnia and severe acidosis SUBJ: Patient remains intubated sedated. On sedation hold and attended CPAP became very tachypneic and agitated, repeatedly placed back on ACV mechanical ventilation. FiO2 at 45%. Off Lveophed 07/28: Clinically improved. Following commands, tolerated CPAP on Precedex. We' ll get weaning parameters and possible extubation. Remains on Precedex. Urine output adequate 07/29: Extubated yesterday tolerated well respiratory ha. Had anxiety and agitation yesterday and started on Precedex currently on 0.3 mics per kg per hour. Following commands oriented to person and place Hospitalist Notes: 07/30: Patient seen in her bedroom discussed with nurse at this time with oxygen desaturation in 84%, on BiPAP discussed with Powerhouse Mechanic Apprentice Doctor Faheem Wayne the patient was discussed with her Health Care decision Maker but was not possible to make the patient DNR, awaiting for Building Repair Maintenance Supervisor order, at this time stable on BiPAP her oxygen saturation improving to 91%. 07/31: Stable in her bedroom, patient eating her breakfast but needs to be on non rebreather mask due to easy desaturation. 08/01: patient wearing Nasal Cannula, stable, improving general Condition, no nausea, vomit or diarrhea discussed with nurse Miss Cooper. Objective Vital Signs Date Time Temp Pulse Resp B/P (MAP) Pulse Ox O2 Delivery O2 Flow Rate FiO2 08/01/17 12:00 103 08/01/17 12:00 98.1 103 46 166/69 (101) 94 08/01/17 10:00 108 08/01/17 09:57 100 Nasal Cannula 4.00 08/01/17 08:00 108 08/01/17 08:00 98.0 108 20 167/74 (105) 100 08/01/17 06:16 24 08/01/17 06:00 119 08/01/17 04:00 98.4 84 28 164/77 (106) 99 08/01/17 04:00 84 08/01/17 02:00 102 08/01/17 00:04 98 35 08/01/17 00:00 98.2 109 19 142/69 (93) 97 08/01/17 00:00 109 07/31/17 22:00 113 07/31/17 20:00 109 07/31/17 20:00 98.5 109 16 105/58 (74) 98 07/31/17 19:56 100 Nasal Cannula 3.00 07/31/17 16:00 105 07/31/17 16:00 98.3 105 17 107/54 (71) 98 07/31/17 14:14 105 134/70 I/O 07/31/17 07/31/17 07/31/17 08/01/17 08/01/17 08/01/17 07:00 15:00 23:00 07:00 15:00 23:00 Intake Total 150 ml 50 ml 50 ml 240 ml Output Total 400 ml 950 ml 275 ml Balance -250 ml 50 ml -900 ml -35 ml Intake Oral 100 ml 240 ml IV Total 50 ml 50 ml 50 ml Output Urine Total 400 ml 950 ml 275 ml # Bowel Movements 1 Result Diagram: 08/01/17 0414 08/01/17 0414 Imaging Last Impressions Chest X-Ray 08/01/17 0600 Signed Impressions: Service Date/Time: Tuesday, August 01, 2017 04:34 - CONCLUSION: Increased bilateral lower lung zone opacity indicating pulmonary edema, consolidation, or atelectasis. New small bilateral pleural effusions. Fili Warren MD Chest CT 07/29/17 1808 Signed Impressions: Service Date/Time: July 20:44 - CONCLUSION: 1. Bilateral [id number] pleural effusions right greater than left. 2. Consolidation in the right lower lobe. 3. Mild cardiomegaly. Keaton Montalvo MD Head CT 07/26/17 0824 Signed Impressions: Service Date/Time: Wednesday, July 26, 2017 09:14 - CONCLUSION: 1. No evidence of acute intracranial pathology. No masses are identified.8 Sukhjinder Bhakta MD Procedures Endotracheal Intubation and Extubation Other Results Laboratory Tests Test 07/26/17 08:05 07/26/17 12:10 07/27/17 04:40 07/27/17 15:55 Neutrophils (%) (Auto) 76.6 % Lymphocytes (%) (Auto) 11.7 % Monocytes (%) (Auto) 10.4 % Eosinophils (%) (Auto) 0.4 % Basophils (%) (Auto) 0.9 % Neutrophils # (Auto) 9.6 TH/MM3 Lymphocytes # (Auto) 1.5 TH/MM3 Monocytes # (Auto) 1.3 TH/MM3 Eosinophils # (Auto) 0.0 TH/MM3 Basophils # (Auto) 0.1 TH/MM3 CBC Comment DIFF FINAL Differential Comment Urine Color YELLOW Urine Turbidity HAZY Urine pH 5.5 Urine Specific [place] 1.018 Urine Protein 30 mg/dL Urine Glucose (UA) 300 mg/dL Urine Ketones NEG mg/dL Urine Occult Blood NEG Urine Nitrite NEG Urine Bilirubin NEG Urine Urobilinogen LESS THAN 2.0 MG/DL Urine Leukocyte Esterase MOD Urine RBC LESS THAN 1 /hpf Urine WBC 12 /hpf Urine WBC Clumps FEW Urine Squamous Epithelial Cells 1 /hpf Urine Transitional Epithelial Cells <1 /hpf Urine Amorphous Sediment FEW Urine Bacteria OCC /hpf Microscopic Urinalysis Comment CATH-CULTURE IND Hemoglobin A1c 6.1 % Blood Urea Nitrogen 27 MG/DL 27 MG/DL Creatinine 1.41 MG/DL 0.94 MG/DL Random Glucose 323 MG/DL 112 MG/DL Total Protein 7.8 GM/DL 5.5 GM/DL Albumin 3.4 GM/DL Calcium Level 8.8 MG/DL 7.2 MG/DL Alkaline Phosphatase 90 U/L Aspartate Amino Transf (AST/SGOT) 54 U/L Alanine Aminotransferase (ALT/SGPT) 40 U/L Total Bilirubin 0.4 MG/DL Sodium Level 137 MEQ/L 144 MEQ/L Potassium Level 4.6 MEQ/L 4.0 MEQ/L Chloride Level 99 MEQ/L 110 MEQ/L Carbon Dioxide Level 25.5 MEQ/L 25.8 MEQ/L Total Creatine Kinase 91 U/L Troponin I 0.07 NG/ML Thyroid Stimulating Hormone 3rd Gen 1.530 uIU/ML Nasal Screen MRSA (PCR) MRSA DETECTED Protein Corrected Calcium 8.1 MG/DL Lactic Acid Level 0.9 mmol/L Test 07/28/17 09:55 07/29/17 21:35 07/30/17 11:35 07/30/17 11:45 Stool C. difficile Toxin (PCR) NEGATIVE Stl C. difficile Toxin Epiderm 027 PRESUMPTIVE NEGATIVE Blood Gas Liter Flow 6 L/M Blood Gas Puncture Site LT BRACHIAL Blood Gas Patient Temperature 98.6 Blood Gas HCO3 30 mmol/L Blood Gas Base Excess 4.5 mmol/L Blood Gas Oxygen Saturation 93 % Arterial Blood pH 7.35 Arterial Blood Partial Pressure CO2 56 mmHg Arterial Blood Partial Pressure O2 75 mmHg Arterial Blood Oxygen Content 15.4 Vol % Arterial Blood Carboxyhemoglobin 0.8 % Arterial Blood Methemoglobin 1.4 % Blood Gas Hemoglobin 11.8 G/DL Oxygen Delivery Device BiPAP Blood Gas Ventilator Setting [id number] Blood Gas Inspired Oxygen 35 % Blood Urea Nitrogen 25 MG/DL Creatinine 0.88 MG/DL Random Glucose 82 MG/DL Calcium Level 8.2 MG/DL Phosphorus Level 2.4 MG/DL Magnesium Level 2.6 MG/DL Sodium Level 146 MEQ/L Potassium Level 4.0 MEQ/L Chloride Level 108 MEQ/L Carbon Dioxide Level 30.6 MEQ/L Test 07/31/17 11:39 08/01/17 04:14 Prothrombin Time 11.1 SEC Prothromb Time International Ratio 1.0 RATIO Activated Partial Thromboplast Time 24.6 SEC White Blood Count 8.6 TH/MM3 Red Blood Count 3.96 MIL/MM3 Hemoglobin 11.9 GM/DL Hematocrit 37.6 % Mean Corpuscular Volume 95.0 FL Mean Corpuscular Hemoglobin 30.0 PG Mean Corpuscular Hemoglobin Concent 31.6 % Red Cell Distribution Width 16.0 % Platelet Count 295 TH/MM3 Mean Platelet Volume 8.6 FL Blood Urea Nitrogen 22 MG/DL Creatinine 0.70 MG/DL Random Glucose 87 MG/DL Calcium Level 8.1 MG/DL Sodium Level 148 MEQ/L Potassium Level 3.8 MEQ/L Chloride Level 106 MEQ/L Carbon Dioxide Level 31.0 MEQ/L Anion Gap 11 MEQ/L Estimat Glomerular Filtration Rate 81 ML/MIN Objective Remarks GENERAL: Well-developed well-nourished patient on NC SKIN: Dry. HEAD: Atraumatic. Normocephalic. EYES: No scleral icterus. No injection or drainage. ENT: Mucous membranes dry. NECK: Trachea midline. Supple. CARDIOVASCULAR: Regular rate and rhythm. No murmur appreciated. tachycardia positive. RESPIRATORY: Severe decreased breath sounds bilateral. mild expiratory Wheezing , No crackles. GASTROINTESTINAL: Abdomen soft, non-tender, nondistended. Hepatic and splenic margins not palpable. MUSCULOSKELETAL: No obvious deformities. No clubbing. No cyanosis. No edema. NEUROLOGICAL: Alert awake oriented to person and place, remains on Precedex. No focal deficits Medications and IVs Current Medications Medications (Trade) Dose Ordered Sig/Lili Route Start Time Stop Time Status Last Admin (NS Flush) 2 ml UNSCH PRN IV FLUSH 07/26/17 08:15 (Duoneb Neb) 1 ampule Q2HR NEB PRN INH 07/26/17 10:00 (D50w (Vial) Inj) 25 ml UNSCH PRN IV PUSH 07/26/17 10:00 07/31/17 00:31 (NovoLIN R SUPPLEMENTAL SCALE) 1 Q6HR SQ 07/26/17 12:00 07/31/17 18:00 (Peridex 0.12% Liq) 15 ml BID@08,20 MT 07/26/17 20:00 08/01/17 09:02 (Tylenol) 650 mg Q6H PRN PO 07/26/17 11:00 08/01/17 05:07 (Zofran Inj) 4 mg Q6H PRN IV PUSH 07/26/17 11:00 (Heparin Inj) 5,000 units Q8H SQ 07/26/17 12:00 08/01/17 12:07 Miscellaneous Information 1 Q361D XX 07/26/17 10:00 07/26/17 13:33 (Chlorhexidine 2% Cloth) Taper DAILY@04 TOP 07/27/17 04:00 07/23/18 03:59 08/01/17 04:00 (Chlorhexidine 2% Cloth) 3 pack UNSCH PRN TOP 07/26/17 10:00 (Hedy-Colace) 1 tab BID PO 07/26/17 21:00 08/01/17 09:01 (Milk Of Magnesia Liq) 30 ml Q12H PRN PO 07/26/17 10:00 (Senokot) 17.2 mg Q12H PRN PO 07/26/17 10:00 (Dulcolax Supp) 10 mg DAILY PRN RECTAL 07/26/17 10:00 (Lactulose Liq) 30 ml DAILY PRN PO 07/26/17 10:00 (Ecotrin Ec) 81 mg DAILY PO 07/26/17 13:15 08/01/17 09:01 Potassium Chloride 100 ml @ 50 mls/hr Q2H PRN IV 07/26/17 13:30 Potassium Chloride 100 ml @ 50 mls/hr Q2H PRN IV 07/26/17 13:30 (K-Lyte Cl Eff) 50 meq UNSCH PRN PO 07/26/17 13:30 Potassium Chloride 100 ml @ 25 mls/hr UNSCH PRN IV 07/26/17 13:30 Potassium Chloride 100 ml @ 50 mls/hr Q2H PRN IV 07/26/17 13:30 Magnesium Sulfate 4 gm/Sodium Chloride 100 ml @ 50 mls/hr UNSCH PRN IV 07/26/17 13:30 (Mag-Ox) 800 mg UNSCH PRN PO 07/26/17 13:30 Magnesium Sulfate 2 gm/Sodium Chloride 100 ml @ 50 mls/hr UNSCH PRN IV 07/26/17 13:30 (K-Phos) 2,000 mg Q4H PRN PO 07/26/17 13:30 Sodium Phosphate 30 mmol/Sodium Chloride 250 ml @ 42 mls/hr UNSCH PRN IV 07/26/17 13:30 (K-Phos) 2,000 mg UNSCH PRN PO/TUBE 07/26/17 13:30 Potassium Phosphate 30 mmol/ Sodium Chloride 260 ml @ 42 mls/hr UNSCH PRN IV 07/26/17 13:30 Vasopressin 40 units/Dextrose 100 ml @ 1.5 mls/hr Q24H IV 07/26/17 14:14 Piperacillin Sod/ Tazobactam Sod 50 ml @ 100 mls/hr Q6H IV 07/27/17 16:00 08/01/17 09:59 (Pepcid) 20 mg BID PO 07/28/17 21:00 08/01/17 09:01 (Haldol Inj) 2 mg Q4H PRN IV 07/28/17 15:00 07/31/17 05:44 (Ativan Inj) 1 mg Q2H PRN IV PUSH 07/28/17 17:30 07/31/17 18:24 (Duoneb Neb) 1 ampule Q6HR NEB INH 07/29/17 16:00 08/01/17 09:57 (Spiriva Inh) 18 mcg DAILY INH 07/29/17 15:00 08/01/17 09:01 (Symbicort 160-4.5 Inh) 1 puff Q12HR INH 07/29/17 15:00 08/01/17 09:02 (Xanax) 0.5 mg Q8H PRN PO 07/29/17 14:30 07/29/17 14:35 (Aricept) 10 mg HS PO 07/29/17 21:00 07/31/17 21:51 (Zoloft) 25 mg DAILY PO 07/29/17 14:30 08/01/17 09:01 (SoluMEDROL INJ) 40 mg Q12HR IV PUSH 07/29/17 21:00 08/01/17 09:01 (Mucinex Er) 600 mg BID PO 07/30/17 09:00 08/01/17 09:01 (Apresoline Inj) 10 mg Q6H PRN IV PUSH 07/30/17 23:00 07/31/17 09:13 (Lasix) 20 mg DAILY PO 08/02/17 09:00 (KCl) 10 meq Q12HR PO 08/01/17 21:00 A/P Assessment and Plan 1. Acute Metabolic Encephalopathy/CO2 Narcosis/Dementia by history Improving. resumed Aricept, Sertraline and when necessary Xanax 2. Acute Hypoxemic and Hypercarbic respiratory failure/Healthcare associated Pneumonia/COPD exacerbation/Basilar Pneumonia Bilateral Pleural Effusions. Extubated 07/28/17, continue bronchodilator, Mucolytic and incentive spirometry/Solu-Medrol 60 mg every 12 hours Broad spectrum antibiotics Zosyn, welfare specialist following Doctor Alka Zhao Oxygen desaturation in 84%, on BiPAP discussed with Powerhouse Mechanic Apprentice Doctor Faheem Wayne the patient was discussed with her Health Care decision Maker but was not possible to make the patient DNR, awaiting for Building Repair Maintenance Supervisor order next Wednesday08/02/17, off BiPAP at this time. 3. Septic Shock resolved/Severe Bradycardia/lactic acidosis on admission patient required Epinephrine and Atropine now off pressors 4. Acute Kidney Injury Resolved Remove Mcnulty Cath today. 5. UTI with Lactobacillus to continue Zosyn following blood cultures urine culture, sputum culture PROPH: - Bilateral lower extremity SCDs. Subcutaneous heparin, IV famotidine-change to po LINES: - Right subclavian central line placed 07/26/17-DCd Discharge Planning Once cleared by specialists. Humza Padilla MD Aug 01, 2017 13:40
[2017-08-01] MEDS: VASOPRESSIN INJ 40 UNITS in DEXTROSE 5% IN WATER 100ML INJ 98 ML IV SCH ×2 (14:14)
[2017-08-01] MEDS: LORazepam 2 MG/ML VIAL IV PUSH PRN ×2 (16:31→22:14)
[2017-08-01] MEDS: POTASSIUM CHLORIDE 10 MEQ CONTROLLED RELEASE TAB PO SCH (22:12)
[2017-08-01] MEDS: DONEPEZIL HCL 5 MG TAB PO SCH (22:12)
[2017-08-02] VITALS (14 sets, daily range): BP systolic 129–154; BP diastolic 61–98; PULSE 90–123; RESP 16–31; TEMP 97.8–99.4; O2SAT 90–100
[2017-08-02] MEDS ORDERED: METOPROLOL TARTRATE 5 MG/5 ML VIAL IV PUSH ONE (00:45)
[2017-08-02] MEDS: CHLORHEXIDINE GLUCONATE 2 % 1 PACK (2 CLOTHS) TOP SCH (04:00)
[2017-08-02] MEDS: HEPARIN SODIUM - SQ 10,000 UNITS/ML VIAL SQ SCH ×3 (04:58→20:29)
[2017-08-02] MEDS: LORazepam 2 MG/ML VIAL IV PUSH PRN (05:00)
[2017-08-02] MEDS: PIPERACIL-TAZO 3.375 GM PREMIX 50 ML IV SCH ×4 (05:00→20:31)
[2017-08-02] MEDS: HALOPERIDOL LACTATE 5 MG/ML AMP IV PRN (05:08)
[2017-08-02] MEDS: RESP: ALBUTEROL 2.5 MG/IPRATROPIUM 0.5 MG NEB (SCH) INH ×3 (05:16→14:49)
[2017-08-02 05:57] LABS: HEMATOCRIT 40.9 % (35.0-46.0); MEAN CELL VOLUME 96.5 FL (80.0-100.0); MEAN CORPUSCULAR HEMOGLOBIN 30.3 PG (27.0-34.0); MEAN CORPUSCULAR HGB CONC 31.4 % (32.0-36.0); PLATELET COUNT 299 TH/MM3 (150-450); RED BLOOD COUNT 4.24 MIL/MM3 (4.00-5.30); RED CELL DISTRIBUTION WIDTH 16.2 % (11.6-17.2); REVIEW FLAG FINAL; WHITE BLOOD COUNT 10.9 TH/MM3 (4.0-11.0)
[2017-08-02] MEDS: INSULIN NovoLIN REGULAR SUPPLEMENTAL SCALE SQ SCH ×4 (06:00→18:00)
[2017-08-02 06:16] LABS: BICARBONATE 27.6 MEQ/L (21.0-32.0); POTASSIUM 4.3 MEQ/L (3.5-5.1)
[2017-08-02] MEDS: guaiFENesin E.R. 600 MG TAB PO SCH ×2 (09:21→20:30)
[2017-08-02] MEDS: SERTRALINE HCL 50 MG TAB PO SCH (09:21)
[2017-08-02] MEDS: ASPIRIN EC 81 MG TABEC PO SCH (09:21)
[2017-08-02] MEDS: FUROSEMIDE 20 MG TAB PO SCH (09:21)
[2017-08-02] MEDS: POTASSIUM CHLORIDE 10 MEQ CONTROLLED RELEASE TAB PO SCH ×2 (09:21→20:30)
[2017-08-02] MEDS: methylPREDNISolone SOD SUCC 40 MG/1 ML VIAL IV PUSH SCH (09:22)
[2017-08-02] MEDS: TIOTROPIUM BROMIDE 18 MCG INH INH SCH (09:22)
[2017-08-02] MEDS: BUDESONIDE-FORMOTEROL 160/4.5 MCG INHALER INH SCH ×2 (09:22→20:32)
[2017-08-02] MEDS: FAMOTIDINE 20 MG TAB PO SCH ×2 (09:22→20:29)
[2017-08-02] MEDS: DOCUSATE SODIUM 50 MG/SENNA 8.6 MG TAB PO SCH ×2 (09:22→20:30)
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
--- NOTE | 2017-08-02 11:28 | PD.PN.STU ---
Subjective Remarks Patient was unable to provide history. She was asleep and difficult to arouse during our encounter. She was receiving 2 L O2 via nasal canula. She had received Ativan and Haldol at 5:00 earlier today. Per nursing, patient has been more drowsy last 1-2 days and has been having difficulty participating with PT due to level of impairment. Objective Vitals Vital Signs Date Time Temp Pulse Resp B/P (MAP) Pulse Ox O2 Delivery O2 Flow Rate FiO2 08/02/17 06:00 97 08/02/17 04:00 101 08/02/17 04:00 98.5 101 26 148/82 (104) 100 08/02/17 02:00 98 08/02/17 00:00 98.0 117 18 129/61 (83) 100 08/02/17 00:00 123 08/01/17 22:00 126 08/01/17 21:14 99 Nasal Cannula 2.00 08/01/17 20:00 109 08/01/17 20:00 98.7 109 17 130/63 (85) 98 08/01/17 18:00 122 08/01/17 16:00 104.0 104 26 159/81 (107) 08/01/17 16:00 104 08/01/17 14:14 110 146/78 08/01/17 14:00 110 08/01/17 12:00 103 08/01/17 12:00 98.1 103 46 166/69 (101) 94 I/O 08/01/17 08/01/17 08/01/17 08/02/17 08/02/17 08/02/17 07:00 15:00 23:00 07:00 15:00 23:00 Intake Total 240 ml 100 ml 100 ml Output Total 275 ml 300 ml 850 ml Balance -35 ml 100 ml -200 ml -850 ml Intake Oral 240 ml IV Total 100 ml 100 ml Output Urine Total 275 ml 300 ml 850 ml Bladder Scan Volume Amount 311 ml # Bowel Movements 1 2 PHYSICAL EXAM: GENERAL: Thin, elderly lady is lying in bed. She is pale, asleep, and difficult to arouse. SKIN: Turgor is good. HEENT: Head normocephalic. Pupils are reactive. Sclerae are clear. Tongue was dry. Throat clear. Nasal mucosa is clear. Ears - No inflammation. NECK: Supple. No bruits or thyroid enlargement. CHEST: Decreased breath sounds at the bases with occasional basilar crackles. Occasional wheezes are also heard in the upper chest. HEART SOUNDS: Irregular S1 and S2. Systolic murmur with radiation to carotids. No S3. ABDOMEN: Soft, protuberant. No mass. No organomegaly. EXTREMITIES: Decreased pulses with reflexes 1+ and the patient does move her extremities with no gross motor deficits. Mild edema. Result Diagram: 08/02/1743808/02/17438 A/P Assessment and Plan IMPRESSION 1. Hypoxemic, hypercapnic respiratory failure, resolved. 2. COPD with chronic bronchitis and emphysema with acute exacerbation. 3. Basilar pneumonia. 4. Metabolic encephalopathy. 5. Dementia. 6. Sepsis and lactic acidosis, improving. 7. Acute kidney injury,resolved. 8. Pleural effusions, worsening. Plan : 1. D/C BIPAP 2. Continue Duoneb nebs qid. 3. Continue antibiotics. 4. O2 at 2 L N/C daytime 5. PT Evaluation. 6. Continue Lasix 20 mg daily. 7. CBC, BMP in am. 8. D/C Solumedrol. Add Prednisone 10 mg tablet PO bid x 5 days 9. D/C Ativan. Add Seroquel. Advise caution with Crispin Romero Aug 02, 2017 11:28
--- NOTE | 2017-08-02 12:53 | HHI.PR ---
Subjective Remarks She is better and on o2 2 L and not in respiratory distress. CXR shows bilateral infiltrates.Confused. She had Ativan last PM.Seems drowsy Objective Vital Signs Date Time Temp Pulse Resp B/P (MAP) Pulse Ox O2 Delivery O2 Flow Rate FiO2 08/02/17 06:00 97 08/02/17 04:00 101 08/02/17 04:00 98.5 101 26 148/82 (104) 100 08/02/17 02:00 98 08/02/17 00:00 98.0 117 18 129/61 (83) 100 08/02/17 00:00 123 08/01/17 22:00 126 08/01/17 21:14 99 Nasal Cannula 2.00 08/01/17 20:00 109 08/01/17 20:00 98.7 109 17 130/63 (85) 98 08/01/17 18:00 122 08/01/17 16:00 104.0 104 26 159/81 (107) 08/01/17 16:00 104 08/01/17 14:14 110 146/78 08/01/17 14:00 110 I/O 08/01/17 08/01/17 08/01/17 08/02/17 08/02/17 08/02/17 07:00 15:00 23:00 07:00 15:00 23:00 Intake Total 240 ml 100 ml 100 ml Output Total 275 ml 300 ml 850 ml Balance -35 ml 100 ml -200 ml -850 ml Intake Oral 240 ml IV Total 100 ml 100 ml Output Urine Total 275 ml 300 ml 850 ml Bladder Scan Volume Amount 311 ml # Bowel Movements 1 2 Result Diagram: 08/02/17 0439 08/02/17 0439 Procedures Endotracheal Intubation and Extubation Objective Remarks GENERAL: This averagely built elderly lady is sitting in bed, pale and in no distress SKIN: Turgor is good. HEENT: Head normocephalic. Pupils are reactive. Sclerae are clear. Tongue was dry. Throat clear. Nasal mucosa is clear. Ears - No inflammation. NECK: Supple. No bruits or thyroid enlargement. CHEST: Decreased breath sounds at the bases with few basilar crackles. Occasional wheezes are also heard in the upper chest. HEART SOUNDS: Irregular S1 and S2. No murmur. No S3. ABDOMEN: Soft, protuberant. No mass. No organomegaly. EXTREMITIES: Decreased pulses with reflexes 1+ and the patient does move her extremities with no gross motor deficits. No edema. Assessment and Plan Assessment and Plan IMPRESSION 1. Hypoxemic, hypercapnic respiratory failure, resolved. 2. COPD with chronic bronchitis and emphysema with acute exacerbation. 3. Basilar pneumonia. 4. Metabolic encephalopathy. 5. Dementia. 6. Severe sepsis and lactic acidosis. 7. Acute kidney injury.Resolved 8. Pleural effusions. Plan : 1. D/C BIPAP at HS 2. Continue Duoneb nebs qid. 3. Continue antibiotics. 4. O2 at 2 L N/C daytime 5. PT Evaluation . 6. lasix 20 mg daily. 7. CBC ,BMP in am. 8.D/C Solumedrol and Ativan 9. Add Seroquel 25 mg bid 10. Prednisone 10 mg BID X 5 days Romina Beebe MD Aug 02, 2017 12:53
[2017-08-02] MEDS: VASOPRESSIN INJ 40 UNITS in DEXTROSE 5% IN WATER 100ML INJ 98 ML IV SCH ×2 (14:14)
--- NOTE | 2017-08-02 16:40 | HHI.PR ---
Subjective Remarks epic beacon specialists Notes: All history is obtained from ED chart review. Patient is intubated sedated. Patient is a 76-year-old female history of dementia, hypertension, hyperlipidemia, coronary artery disease, COPD, [facility] with [facility] of consciousness. Paramedics found her lethargic and obtunded, hypoxemic. She was placed on NRB placed a nonrebreather and brought to the ED. In the ED patient was unresponsive, SaO2 98-99%. She was taken off the nonrebreather and placed on a nasal cannula. ABG- pH of 7.041. PCO2 was 122 and PO2 was 94.5. Temp was 91.8 and Patient was placed on warming blanket, warm IVD fluids were initiated. She was intubated for severe hypercapnic respiratory failure. Her urinalysis shows evidence of a UTI and her chest x-ray shows probable pneumonia. Received Zosyn and azithromycin. Lactate was 5.6. [facility] requested to admit I evaluated the patent immediately in ICU. Patient was severely bradycardic, HR in mid 20s and blood pressure was not recordable, but had palpable pulse. No response to atropine. I ordered 0.5 mg epinephrine, IVF 3L boluses and Levophed started. Patients BP improved with above measures and I placed an emergent L subclavian central line. Her home medications and hypercapnic resp failure indicated COPD exacerbation in addition to septic shock. I have started IV steroids and will continue Vanc and Zosyn, scheduled and PRN DuoNeb. Also Minute ventilation adjusted to correct hypercapnia and severe acidosis SUBJ: Patient remains intubated sedated. On sedation hold and attended CPAP became very tachypneic and agitated, repeatedly placed back on ACV mechanical ventilation. FiO2 at 45%. Off Lveophed 07/28: Clinically improved. Following commands, tolerated CPAP on Precedex. We' ll get weaning parameters and possible extubation. Remains on Precedex. Urine output adequate 07/29: Extubated yesterday tolerated well respiratory ha. Had anxiety and agitation yesterday and started on Precedex currently on 0.3 mics per kg per hour. Following commands oriented to person and place Hospitalist Notes: 07/30: Patient seen in her bedroom discussed with nurse at this time with oxygen desaturation in 84%, on BiPAP discussed with Lead Material Handler Doctor Faheem Wayne the patient was discussed with her Health Care decision Maker but was not possible to make the patient DNR, awaiting for Mechanical Technologist order, at this time stable on BiPAP her oxygen saturation improving to 91%. 07/31: Stable in her bedroom, patient eating her breakfast but needs to be on non rebreather mask due to easy desaturation. 08/01: patient wearing Nasal Cannula, stable, improving general Condition. 08/02: Patient found lethargic today, removed this medicines and continue Seroquel by sustainability specialist, will try to transfer to Medical floor and continue Medical management, Discontinued BiPAP at bedtime, continue antibiotics, asked for PT, Lasix 20 mg daily, discontinued Solu-Medrol and Ativan, started on Seroquel 25 mg, Prednisone 10 mg BID for five days. Objective Vital Signs Date Time Temp Pulse Resp B/P (MAP) Pulse Ox O2 Delivery O2 Flow Rate FiO2 08/02/17 08:00 97 Nasal Cannula 2.00 08/02/17 06:00 97 08/02/17 04:00 101 08/02/17 04:00 98.5 101 26 148/82 (104) 100 08/02/17 02:00 98 08/02/17 00:00 98.0 117 18 129/61 (83) 100 08/02/17 00:00 123 08/01/17 22:00 126 08/01/17 21:14 99 Nasal Cannula 2.00 08/01/17 20:00 109 08/01/17 20:00 98.7 109 17 130/63 (85) 98 08/01/17 18:00 122 I/O 08/01/17 08/01/17 08/01/17 08/02/17 08/02/17 08/02/17 07:00 15:00 23:00 07:00 15:00 23:00 Intake Total 240 ml 100 ml 100 ml Output Total 275 ml 300 ml 850 ml Balance -35 ml 100 ml -200 ml -850 ml Intake Oral 240 ml IV Total 100 ml 100 ml Output Urine Total 275 ml 300 ml 850 ml Bladder Scan Volume Amount 311 ml # Bowel Movements 1 2 Result Diagram: 08/02/17 0439 08/02/17 043 Imaging Last Impressions Chest X-Ray 08/01/17 06 Signed Impressions: Service Date/Time: Tuesday, August 01, 2017 04:34 - CONCLUSION: Increased bilateral lower lung zone opacity indicating pulmonary edema, consolidation, or atelectasis. New small bilateral pleural effusions. Fili Warren MD Chest CT 07/29/178 Signed Impressions: Service Date/Time: July 20:44 - CONCLUSION: 1. Bilateral [id number] pleural effusions right greater than left. 2. Consolidation in the right lower lobe. 3. Mild cardiomegaly. Keaton Montalvo MD Head CT 07/26/17823 Signed Impressions: Service Date/Time: Wednesday, July 26, 2017 09:14 - CONCLUSION: 1. No evidence of acute intracranial pathology. No masses are identified.8 Sukhjinder Bhakta MD Procedures Endotracheal Intubation and Extubation Other Results Laboratory Tests Test 07/26/17 08:05 07/26/17 12:10 07/27/17 04:40 07/27/17 15:55 Neutrophils (%) (Auto) 76.6 % Lymphocytes (%) (Auto) 11.7 % Monocytes (%) (Auto) 10.4 % Eosinophils (%) (Auto) 0.4 % Basophils (%) (Auto) 0.9 % Neutrophils # (Auto) 9.6 TH/MM3 Lymphocytes # (Auto) 1.5 TH/MM3 Monocytes # (Auto) 1.3 TH/MM3 Eosinophils # (Auto) 0.0 TH/MM3 Basophils # (Auto) 0.1 TH/MM3 CBC Comment DIFF FINAL Differential Comment Urine Color YELLOW Urine Turbidity HAZY Urine pH 5.5 Urine Specific [place] 1.018 Urine Protein 30 mg/dL Urine Glucose (UA) 300 mg/dL Urine Ketones NEG mg/dL Urine Occult Blood NEG Urine Nitrite NEG Urine Bilirubin NEG Urine Urobilinogen LESS THAN 2.0 MG/DL Urine Leukocyte Esterase MOD Urine RBC LESS THAN 1 /hpf Urine WBC 12 /hpf Urine WBC Clumps FEW Urine Squamous Epithelial Cells 1 /hpf Urine Transitional Epithelial Cells <1 /hpf Urine Amorphous Sediment FEW Urine Bacteria OCC /hpf Microscopic Urinalysis Comment CATH-CULTURE IND Hemoglobin A1c 6.1 % Blood Urea Nitrogen 27 MG/DL 27 MG/DL Creatinine 1.41 MG/DL 0.94 MG/DL Random Glucose 323 MG/DL 112 MG/DL Total Protein 7.8 GM/DL 5.5 GM/DL Albumin 3.4 GM/DL Calcium Level 8.8 MG/DL 7.2 MG/DL Alkaline Phosphatase 90 U/L Aspartate Amino Transf (AST/SGOT) 54 U/L Alanine Aminotransferase (ALT/SGPT) 40 U/L Total Bilirubin 0.4 MG/DL Sodium Level 137 MEQ/L 144 MEQ/L Potassium Level 4.6 MEQ/L 4.0 MEQ/L Chloride Level 99 MEQ/L 110 MEQ/L Carbon Dioxide Level 25.5 MEQ/L 25.8 MEQ/L Total Creatine Kinase 91 U/L Troponin I 0.07 NG/ML Thyroid Stimulating Hormone 3rd Gen 1.530 uIU/ML Nasal Screen MRSA (PCR) MRSA DETECTED Protein Corrected Calcium 8.1 MG/DL Lactic Acid Level 0.9 mmol/L Test 07/28/17 09:55 07/29/17 21:35 07/30/17 11:35 07/30/17 11:45 Stool C. difficile Toxin (PCR) NEGATIVE Stl C. difficile Toxin Epiderm 027 PRESUMPTIVE NEGATIVE Blood Gas Liter Flow 6 L/M Blood Gas Puncture Site LT BRACHIAL Blood Gas Patient Temperature 98.6 Blood Gas HCO3 30 mmol/L Blood Gas Base Excess 4.5 mmol/L Blood Gas Oxygen Saturation 93 % Arterial Blood pH 7.35 Arterial Blood Partial Pressure CO2 56 mmHg Arterial Blood Partial Pressure O2 75 mmHg Arterial Blood Oxygen Content 15.4 Vol % Arterial Blood Carboxyhemoglobin 0.8 % Arterial Blood Methemoglobin 1.4 % Blood Gas Hemoglobin 11.8 G/DL Oxygen Delivery Device BiPAP Blood Gas Ventilator Setting [id number] Blood Gas Inspired Oxygen 35 % Blood Urea Nitrogen 25 MG/DL Creatinine 0.88 MG/DL Random Glucose 82 MG/DL Calcium Level 8.2 MG/DL Phosphorus Level 2.4 MG/DL Magnesium Level 2.6 MG/DL Sodium Level 146 MEQ/L Potassium Level 4.0 MEQ/L Chloride Level 108 MEQ/L Carbon Dioxide Level 30.6 MEQ/L Test 07/31/17 11:39 08/02/17 04:39 Prothrombin Time 11.1 SEC Prothromb Time International Ratio 1.0 RATIO Activated Partial Thromboplast Time 24.6 SEC White Blood Count 10.9 TH/MM3 Red Blood Count 4.24 MIL/MM3 Hemoglobin 12.8 GM/DL Hematocrit 40.9 % Mean Corpuscular Volume 96.5 FL Mean Corpuscular Hemoglobin 30.3 PG Mean Corpuscular Hemoglobin Concent 31.4 % Red Cell Distribution Width 16.2 % Platelet Count 299 TH/MM3 Mean Platelet Volume 8.4 FL Blood Urea Nitrogen 22 MG/DL Creatinine 0.93 MG/DL Random Glucose 122 MG/DL Calcium Level 8.5 MG/DL Sodium Level 144 MEQ/L Potassium Level 4.3 MEQ/L Chloride Level 107 MEQ/L Carbon Dioxide Level 27.6 MEQ/L Anion Gap 9 MEQ/L Estimat Glomerular Filtration Rate 59 ML/MIN Objective Remarks GENERAL: Well-developed well-nourished patient on CT SKIN: Dry. HEAD: Atraumatic. Normocephalic. EYES: No scleral icterus. No injection or drainage. ENT: Mucous membranes dry. NECK: Trachea midline. Supple. CARDIOVASCULAR: Regular rate and rhythm. No murmur appreciated. tachycardia positive. RESPIRATORY: Severe decreased breath sounds bilateral. mild expiratory Wheezing , No crackles. GASTROINTESTINAL: Abdomen soft, non-tender, nondistended. Hepatic and splenic margins not palpable. MUSCULOSKELETAL: No obvious deformities. No clubbing. No cyanosis. No edema. NEUROLOGICAL: Alert awake oriented to person and place, remains on Precedex. No focal deficits Medications and IVs Current Medications Medications (Trade) Dose Ordered Sig/Lili Route Start Time Stop Time Status Last Admin (NS Flush) 2 ml UNSCH PRN IV FLUSH 07/26/17 08:15 (Duoneb Neb) 1 ampule Q2HR NEB PRN INH 07/26/17 10:00 (D50w (Vial) Inj) 25 ml UNSCH PRN IV PUSH 07/26/17 10:00 07/31/17 00:31 (NovoLIN R SUPPLEMENTAL SCALE) 1 Q6HR SQ 07/26/17 12:00 07/31/17 18:00 (Tylenol) 650 mg Q6H PRN PO 07/26/17 11:00 08/01/17 05:07 (Zofran Inj) 4 mg Q6H PRN IV PUSH 07/26/17 11:00 (Heparin Inj) 5,000 units Q8H SQ 07/26/17 12:00 08/02/17 12:38 Miscellaneous Information 1 Q361D XX 07/26/17 10:00 07/26/17 13:33 (Chlorhexidine 2% Cloth) Taper DAILY@04 TOP 07/27/17 04:00 07/23/18 03:59 08/02/17 04:00 (Chlorhexidine 2% Cloth) 3 pack UNSCH PRN TOP 07/26/17 10:00 (Hedy-Colace) 1 tab BID PO 07/26/17 21:00 08/02/17 09:22 (Milk Of Magnesia Liq) 30 ml Q12H PRN PO 07/26/17 10:00 (Senokot) 17.2 mg Q12H PRN PO 07/26/17 10:00 (Dulcolax Supp) 10 mg DAILY PRN RECTAL 07/26/17 10:00 (Lactulose Liq) 30 ml DAILY PRN PO 07/26/17 10:00 (Ecotrin Ec) 81 mg DAILY PO 07/26/17 13:15 08/02/17 09:21 Potassium Chloride 100 ml @ 50 mls/hr Q2H PRN IV 07/26/17 13:30 Potassium Chloride 100 ml @ 50 mls/hr Q2H PRN IV 07/26/17 13:30 (K-Lyte Cl Eff) 50 meq UNSCH PRN PO 07/26/17 13:30 Potassium Chloride 100 ml @ 25 mls/hr UNSCH PRN IV 07/26/17 13:30 Potassium Chloride 100 ml @ 50 mls/hr Q2H PRN IV 07/26/17 13:30 Magnesium Sulfate 4 gm/Sodium Chloride 100 ml @ 50 mls/hr UNSCH PRN IV 07/26/17 13:30 (Mag-Ox) 800 mg UNSCH PRN PO 07/26/17 13:30 Magnesium Sulfate 2 gm/Sodium Chloride 100 ml @ 50 mls/hr UNSCH PRN IV 07/26/17 13:30 (K-Phos) 2,000 mg Q4H PRN PO 07/26/17 13:30 Sodium Phosphate 30 mmol/Sodium Chloride 250 ml @ 42 mls/hr UNSCH PRN IV 07/26/17 13:30 (K-Phos) 2,000 mg UNSCH PRN PO/TUBE 07/26/17 13:30 Potassium Phosphate 30 mmol/ Sodium Chloride 260 ml @ 42 mls/hr UNSCH PRN IV 07/26/17 13:30 Vasopressin 40 units/Dextrose 100 ml @ 1.5 mls/hr Q24H IV 07/26/17 14:14 Piperacillin Sod/ Tazobactam Sod 50 ml @ 100 mls/hr Q6H IV 07/27/17 16:00 08/02/17 09:20 (Pepcid) 20 mg BID PO 07/28/17 21:00 08/02/17 09:22 (Haldol Inj) 2 mg Q4H PRN IV 07/28/17 15:00 08/02/17 05:08 (Spiriva Inh) 18 mcg DAILY INH 07/29/17 15:00 08/02/17 09:22 (Symbicort 160-4.5 Inh) 1 puff Q12HR INH 07/29/17 15:00 08/02/17 09:22 (Xanax) 0.5 mg Q8H PRN PO 07/29/17 14:30 07/29/17 14:35 (Aricept) 10 mg HS PO 07/29/17 21:00 08/01/17 22:12 (Zoloft) 25 mg DAILY PO 07/29/17 14:30 08/02/17 09:21 (Mucinex Er) 600 mg BID PO 07/30/17 09:00 08/02/17 09:21 (Apresoline Inj) 10 mg Q6H PRN IV PUSH 07/30/17 23:00 07/31/17 09:13 (Lasix) 20 mg DAILY PO 08/02/17 09:00 08/02/17 09:21 (KCl) 10 meq Q12HR PO 08/01/17 21:00 08/02/17 09:21 (SEROquel) 25 mg BID@09,12 PO 08/03/17 09:00 (Deltasone) 10 mg BID PO 08/02/17 21:00 08/07/17 20:59 A/P Assessment and Plan 1. Acute Metabolic Encephalopathy/CO2 Narcosis/Dementia by history, lethargic today probable secondary to Haldol and Ativan removed this medicines by sustainability specialist to continue Sertraline 25 mg daily and Aricept. 2. Acute Hypoxemic and Hypercarbic respiratory failure/Healthcare associated Pneumonia/COPD exacerbation/Basilar Pneumonia Bilateral Pleural Effusions. Extubated 07/28/17, continue bronchodilator, Mucolytic and incentive spirometry/discontinued Solu-Medrol and started on Prednisone 10 mg BID Broad spectrum antibiotics Zosyn, sustainability specialist following Doctor Alka Zhao Oxygen desaturation in 84%, on BiPAP discussed with Lead Material Handler Doctor Faheem Wayne the patient was discussed with her Health Care decision Maker but was not possible to make the patient DNR, Discontinued BiPAP, 3. Septic Shock resolved/Severe Bradycardia/lactic acidosis on admission patient required Epinephrine and Atropine now off pressors 4. Acute Kidney Injury Resolved Remove Mcnulty Cath today. 5. UTI with Lactobacillus to continue Zosyn following blood cultures urine culture, sputum culture Awaiting for PT eval for placement. PROPH: - Bilateral lower extremity SCDs. Subcutaneous heparin, IV famotidine-change to po LINES: - Right subclavian central line placed 07/26/17-DCd Discharge Planning expected in one to two days. Humza Padilla MD Aug 02, 2017 16:40
[2017-08-02] MEDS: DONEPEZIL HCL 5 MG TAB PO SCH (20:29)
[2017-08-02] MEDS: predniSONE 10 MG TAB PO SCH (20:30)
[2017-08-03] VITALS (9 sets, daily range): BP systolic 114–159; BP diastolic 56–80; PULSE 76–117; RESP 18–21; TEMP 97.5–98.1; O2SAT 91–100
[2017-08-03] MEDS: CHLORHEXIDINE GLUCONATE 2 % 1 PACK (2 CLOTHS) TOP SCH (03:35)
[2017-08-03] MEDS: PIPERACIL-TAZO 3.375 GM PREMIX 50 ML IV SCH ×3 (03:53→16:50)
[2017-08-03] MEDS: HEPARIN SODIUM - SQ 10,000 UNITS/ML VIAL SQ SCH ×3 (03:54→20:01)
[2017-08-03] MEDS: INSULIN NovoLIN REGULAR SUPPLEMENTAL SCALE SQ SCH ×5 (05:09→23:03)
[2017-08-03 07:29] LABS: HEMATOCRIT 39.4 % (35.0-46.0); MEAN CORPUSCULAR HEMOGLOBIN 30.2 PG (27.0-34.0); MEAN CORPUSCULAR HGB CONC 31.8 % (32.0-36.0); PLATELET COUNT 292 TH/MM3 (150-450); RED BLOOD COUNT 4.14 MIL/MM3 (4.00-5.30); RED CELL DISTRIBUTION WIDTH 16.4 % (11.6-17.2); REVIEW FLAG FINAL; WHITE BLOOD COUNT 10.2 TH/MM3 (4.0-11.0)
--- NOTE | 2017-08-03 08:54 | HHI.PR ---
Subjective Remarks in no acute distress. awake and reportedly more alert today. no fever. d/w the RN. Objective Vitals Vital Signs Date Time Temp Pulse Resp B/P (MAP) Pulse Ox O2 Delivery O2 Flow Rate FiO2 08/03/17 04:00 97.6 101 20 139/69 (92) 98 08/03/17 00:19 95 Nasal Cannula 4.00 08/03/17 00:00 98.1 98 20 114/56 (75) 93 08/02/17 22:10 98 08/02/17 21:41 98.2 98 20 150/69 (96) 99 08/02/17 20:00 113 08/02/17 20:00 98.3 113 19 135/63 (87) 100 08/02/17 19:54 100 Nasal Cannula 5.00 08/02/17 18:00 108 08/02/17 16:00 97.8 108 25 141/63 (89) 90 08/02/17 16:00 108 08/02/17 14:00 90 08/02/17 12:00 99.2 91 16 154/70 (98) 100 08/02/17 12:00 91 08/02/17 10:00 103 I/O 08/02/17 08/02/17 08/02/17 08/03/17 08/03/17 08/03/17 07:00 15:00 23:00 07:00 15:00 23:00 Intake Total 120 ml Output Total 850 ml 690 ml Balance -850 ml -690 ml 120 ml Intake Oral 120 ml Output Urine Total 850 ml 625 ml Stool Total 65 ml Bladder Scan Volume Amount 311 ml 412 ml # Bowel Movements 2 Result Diagram: 08/03/17 0559 08/02/17 0439 Imaging Last Impressions Chest X-Ray 08/01/17 0600 Signed Impressions: Service Date/Time: Tuesday, August 01, 2017 04:34 - CONCLUSION: Increased bilateral lower lung zone opacity indicating pulmonary edema, consolidation, or atelectasis. New small bilateral pleural effusions. Fili Warren MD Chest CT 07/29/17 180 Signed Impressions: Service Date/Time: July 20:44 - CONCLUSION: 1. Bilateral [id number] pleural effusions right greater than left. 2. Consolidation in the right lower lobe. 3. Mild cardiomegaly. Keaton Montalvo MD Head CT 07/26/17 0824 Signed Impressions: Service Date/Time: Wednesday, July 26, 2017 09:14 - CONCLUSION: 1. No evidence of acute intracranial pathology. No masses are identified.8 Sukhjinder Bhakta MD Objective Remarks GENERAL: in no apparent distress. CARDIOVASCULAR: Regular rate and regular rhythm without murmurs, gallops, or rubs. RESPIRATORY: Clear to auscultation. Breath sounds equal bilaterally. No wheezes , rales, or rhonchi. GASTROINTESTINAL: Abdomen soft, non-tender, nondistended. Normal, active bowel sounds MUSCULOSKELETAL: Extremities without clubbing, cyanosis, or edema. NEURO: awake but not oriented to time or place. Procedures central line placement. Medications and IVs Current Medications IV Flush (NS Flush) 2 ml UNSCH PRN IV FLUSH FLUSH AFTER USING IV ACCESS; Start 07/26/17 at 08:15 Sodium Chloride 1,000 ml @ 125 mls/hr Q8H IV Last administered on 07/26/17 08:40; Start 07/26/17 at 08:14; Stop 07/26/17 at 16:13; Status DC Etomidate (Amidate Inj) 20 mg ONCE ONCE IVP Last administered on 07/26/17 09 :03; Start 07/26/17 at 09:00; Stop 07/26/17 at 09:02; Status DC Succinylcholine Chloride (Quelicin Inj) 100 mg ONCE ONCE IV PUSH Last administered on 07/26/17 09:03; Start 07/26/17 at 09:00; Stop 07/26/17 at 09 :02; Status DC Propofol 100 ml @ 1.8 mls/hr TITRATE PRN IV Ordered RASS Last administered on 07/27/17 11:49; Start 07/26/17 at 09:00; Stop 07/28/17 at 10:34; Status DC Piperacillin Sod/ Tazobactam Sod 100 ml @ 200 mls/hr ONCE STAT IV Last administered on 07/26/17 09:56; Start 07/26/17 at 08:58; Stop 07/26/17 at 09 :27; Status DC Azithromycin 500 mg/Sodium Chloride 250 ml @ 250 mls/hr ONCE STAT IV Last administered on 07/26/17 10:42; Start 07/26/17 at 08:58; Stop 07/26/17 at 09 :57; Status DC Pharmacy Profile Note 0 ml @ 0 mls/hr UNSCH OTHER ; Start 07/26/17 at 10:00; Stop 07/28/17 at 10:34; Status DC Vancomycin HCl 1200 mg/Sodium Chloride 262 ml @ 250 mls/hr ONCE ONCE IV ; Start 07/26/17 at 10:00; Stop 07/26/17 at 11:02; Status UNV Albuterol/ Ipratropium (Duoneb Neb) 1 ampule Q6HR NEB INH Last administered on 07/29/17 09:15; Start 07/26/17 at 11:00; Stop 07/29/17 at 14:08; Status DC Albuterol/ Ipratropium (Duoneb Neb) 1 ampule Q2HR NEB PRN INH WHEEZING; Start 07/26/17 at 10:00 Dextrose (D50w (Vial) Inj) 25 ml UNSCH PRN IV PUSH HYPOGLYCEMIA-SEE COMMENTS Last administered on 07/31/17 00:31; Start 07/26/17 at 10:00 Insulin Human Regular (NovoLIN R SUPPLEMENTAL SCALE) 1 Q6HR SQ Last administered on 07/31/17 18:00; Start 07/26/17 at 12:00 Chlorhexidine Gluconate (Peridex 0.12% Liq) 15 ml BID@08,20 MT Last administered on 08/01/17 09:02; Start 07/26/17 at 20:00; Stop 08/01/17 at 20: 33; Status DC Magnesium Oxide (Mag-Ox) 800 mg UNSCH PRN PO For Magnesium 1.2 - 1.6 mg/dL; Start 07/26/17 at 10:00; Stop 07/26/17 at 13:31; Status DC Magnesium Sulfate 4 gm/Sodium Chloride 100 ml @ 50 mls/hr UNSCH PRN IV For Magnesium 0.9 - 1.1 mg/dL; Start 07/26/17 at 10:00; Stop 07/26/17 at 13:31; Status DC Magnesium Sulfate 2 gm/Sodium Chloride 100 ml @ 50 mls/hr UNSCH PRN IV For Magnesium 1.2 - 1.6 mg/dL; Start 07/26/17 at 10:00; Stop 07/26/17 at 13:31; Status DC Potassium Chloride 100 ml @ 50 mls/hr Q2H PRN IV For Potassium 2.8 - 3.2 mEq/L ; Start 07/26/17 at 10:00; Stop 07/26/17 at 13:31; Status DC Potassium Chloride 100 ml @ 50 mls/hr Q2H PRN IV For Potassium 3.3 - 3.5 mEq/L ; Start 07/26/17 at 10:00; Stop 07/26/17 at 13:31; Status DC Potassium Chloride 100 ml @ 50 mls/hr Q2H PRN IV For Potassium 2.8 - 3.2 mEq/L ; Start 07/26/17 at 10:00; Stop 07/26/17 at 13:31; Status DC Potassium Chloride 100 ml @ 25 mls/hr UNSCH PRN IV For Potassium 3.3 - 3.5 mEq /L; Start 07/26/17 at 10:00; Stop 07/26/17 at 13:31; Status DC Potassium Phosphate (K-Phos) 2,000 mg Q4H PRN PO For Phosphorus < 2.5 mg/dL; Start 07/26/17 at 10:00; Stop 07/26/17 at 13:31; Status DC Potassium Phosphate (K-Phos) 2,000 mg UNSCH PRN PO/TUBE SEE LABEL COMMENTS; Start 07/26/17 at 10:00; Stop 07/26/17 at 13:31; Status DC Potassium Phosphate 30 mmol/ Sodium Chloride 260 ml @ 42 mls/hr UNSCH PRN IV SEE LABEL COMMENTS; Start 07/26/17 at 10:00; Stop 07/26/17 at 13:31; Status DC Sodium Phosphate 30 mmol/Sodium Chloride 250 ml @ 42 mls/hr UNSCH PRN IV For Phosphorus < 2.5 mg/dL; Start 07/26/17 at 10:00; Stop 07/26/17 at 13:31; Status DC Fentanyl Citrate 250 ml @ 5 mls/hr TITRATE PRN IV SEDATION; Start 07/26/17 at 11:00; Stop 07/28/17 at 10:34; Status DC Acetaminophen (Tylenol) 650 mg Q6H PRN PO PAIN 1-10 AND/OR FEVER >101F Last administered on 08/01/17t 05:07; Start 07/26/17 at 11:00 Famotidine (Pepcid Inj) 10 mg Q12HR IV PUSH Last administered on 07/28/17 09: 24; Start 07/26/17 at 21:00; Stop 07/28/17 at 10:34; Status DC Ondansetron HCl (Zofran Inj) 4 mg Q6H PRN IV PUSH NAUSEA OR VOMITING; Start at 11:00 Heparin Sodium (Porcine) (Heparin Inj) 5,000 units Q8H SQ Last administered on 08/03/17 03:54; Start 07/26/17 at 12:00 Miscellaneous Information 1 [id number] Last administered on 07/26/17 13:33; Start 07/26/17 at 10:00 Chlorhexidine Gluconate (Chlorhexidine 2% Cloth) Taper DAILY@04 TOP Last administered on 08/02/17 04:00; Start 07/27/17 at 04:00; Stop 07/23/18 at 03: 59 Chlorhexidine Gluconate (Chlorhexidine 2% Cloth) 3 pack UNSCH PRN TOP HYGIENIC CARE; Start 07/26/17 at 10:00 Senna/Docusate Sodium (Hedy-Colace) 1 tab BID PO Last administered on 20:30; Start 07/26/17 at 21:00 Magnesium Hydroxide (Milk Of Magnesia Liq) 30 ml Q12H PRN PO Mild constipation ; Start 07/26/17 at 10:00 Sennosides (Senokot) 17.2 mg Q12H PRN PO Moderate constipation; Start at 10:00 Bisacodyl (Dulcolax Supp) 10 mg DAILY PRN RECTAL SEVERE CONSITIPATION; Start 07/26/17 at 10:00 Lactulose (Lactulose Liq) 30 ml DAILY PRN PO SEVERE CONSITIPATION; Start 07/26 at 10:00 Piperacillin Sod/ Tazobactam Sod 50 ml @ 100 mls/hr Q8H IV Last administered on 07/27/17 09:25; Start 07/26/17 at 18:00; Stop 07/27/17 at 15:45; Status DC Azithromycin 500 mg/Sodium Chloride 250 ml @ 250 mls/hr Q24H IV ; Start at 10:00; Stop 07/27/17 at 10:00; Status DC Vancomycin HCl 1000 mg/Sodium Chloride 250 ml @ 250 mls/hr Q24H IV Last administered on 07/28/17 09:22; Start 07/26/17 at 11:00; Stop 07/28/17 at 10: 34; Status DC Miscellaneous Information SPECIFIC LAB TO BE DRAWN:vancomy... ONCE ONCE .XX ; Start 07/29/17 at 10:45; Stop 07/29/17 at 10:46; Status Cancel Midazolam HCl (Versed Inj) 5 mg STK-MED ONCE .ROUTE ; Start 07/26/17 at 10:54; Stop 07/26/17 at 10:55; Status DC Midazolam HCl (Versed Inj) 2.5 mg ONCE ONCE IV PUSH Last administered on 07/26 11:00; Start 07/26/17 at 11:00; Stop 07/26/17 at 11:01; Status DC Atropine Sulfate (Atropine Inj) 1 mg STK-MED ONCE .ROUTE ; Start 07/26/17 at 12 :03; Stop 07/26/17 at 12:04; Status DC Calcium Chloride (Calcium Chloride Inj) 2 gm STK-MED ONCE .ROUTE ; Start at 12:06; Stop 07/26/17 at 12:07; Status DC Epinephrine HCl (EPINEPHrine (1:10,000) INJ) 1 mg STK-MED ONCE .ROUTE ; Start 07/26/17 at 12:06; Stop 07/26/17 at 12:07; Status DC Methylprednisolone Sodium Succinate (SoluMEDROL INJ) 60 mg Q12HR IV PUSH Last administered on 07/29/17 07:47; Start 07/26/17 at 13:15; Stop 07/29/17 at 18: 08; Status DC Aspirin (Ecotrin Ec) 81 mg DAILY PO Last administered on 08/02/17 09:21; Start 07/26/17 at 13:15 Sodium Chloride 1,000 ml @ 999 mls/hr Q1H1M IV Last administered on 13:35; Start 07/26/17 at 13:00; Stop 07/26/17 at 16:00; Status DC Potassium Chloride 100 ml @ 50 mls/hr Q2H PRN IV For Potassium 2.8 - 3.2 mEq/L ; Start 07/26/17 at 13:30; Stop 08/02/17 at 16:34; Status DC Potassium Chloride 100 ml @ 50 mls/hr Q2H PRN IV For Potassium 2.8 - 3.2 mEq/L ; Start 07/26/17 at 13:30; Stop 08/02/17 at 16:34; Status DC Potassium Bicarb/ Potassium Chloride (K-Lyte Cl Eff) 50 meq UNSCH PRN PO For Potassium 3.3 - 3.5 mEq/L; Start 07/26/17 at 13:30 Potassium Chloride 100 ml @ 25 mls/hr UNSCH PRN IV For Potassium 3.3 - 3.5 mEq /L; Start 07/26/17 at 13:30; Stop 08/02/17 at 16:34; Status DC Potassium Chloride 100 ml @ 50 mls/hr Q2H PRN IV For Potassium 3.3 - 3.5 mEq/L ; Start 07/26/17 at 13:30; Stop 08/02/17 at 16:34; Status DC Magnesium Sulfate 4 gm/Sodium Chloride 100 ml @ 50 mls/hr UNSCH PRN IV For Magnesium 0.9 - 1.1 mg/dL; Start 07/26/17 at 13:30; Stop 08/02/17 at 16:34; Status DC Magnesium Oxide (Mag-Ox) 800 mg UNSCH PRN PO For Magnesium 1.2 - 1.6 mg/dL; Start 07/26/17 at 13:30 Magnesium Sulfate 2 gm/Sodium Chloride 100 ml @ 50 mls/hr UNSCH PRN IV For Magnesium 1.2 - 1.6 mg/dL; Start 07/26/17 at 13:30; Stop 08/02/17 at 16:34; Status DC Potassium Phosphate (K-Phos) 2,000 mg Q4H PRN PO For Phosphorus < 2.5 mg/dL; Start 07/26/17 at 13:30 Sodium Phosphate 30 mmol/Sodium Chloride 250 ml @ 42 mls/hr UNSCH PRN IV For Phosphorus < 2.5 mg/dL; Start 07/26/17 at 13:30; Stop 08/02/17 at 16:34; Status DC Potassium Phosphate (K-Phos) 2,000 mg UNSCH PRN PO/TUBE SEE LABEL COMMENTS; Start 07/26/17 at 13:30 Potassium Phosphate 30 mmol/ Sodium Chloride 260 ml @ 42 mls/hr UNSCH PRN IV SEE LABEL COMMENTS; Start 07/26/17 at 13:30; Stop 08/02/17 at 16:34; Status DC Vasopressin 40 units/Dextrose 100 ml @ 1.5 mls/hr Q24H IV ; Start 07/26/17 at 14:14 Sodium Bicarbonate (Sodium Bicarbonate 8.4% Inj) 50 meq STK-MED ONCE IV ; Start 07/26/17 at 05:00; Stop 07/26/17 at 16:22; Status DC Sodium Chloride 1,000 ml @ 0 mls/hr BOLUS ONCE IV Last administered on 17:45; Start 07/26/17 at 17:45; Stop 07/26/17 at 17:46; Status DC Norepinephrine Bitartrate 250 ml @ 7.5 mls/hr TITRATE PRN IV Maintain MAP > 65 mmHg; Start 07/26/17 at 17:45; Stop 07/28/17 at 10:34; Status DC Dexmedetomidine HCl 200 mcg/ Sodium Chloride 52 ml @ 3.35 mls/hr TITRATE PRN IV SEDATION; Start 07/27/17 at 13:45; Stop 07/27/17 at 15:35; Status DC Budesonide (Pulmicort Respule Neb) 0.5 mg Q12HR NEB NEB Last administered on 07/29/17 09:15; Start 07/27/17 at 14:00; Stop 07/29/17 at 14:09; Status DC Dexmedetomidine HCl 1000 mcg/ Sodium Chloride 250 ml @ 3.22 mls/hr TITRATE PRN IV SEDATION Last administered on 07/28/17 07:47; Start 07/27/17 at 15:45; Stop 07/28/17 at 10:34; Status DC Piperacillin Sod/ Tazobactam Sod 50 ml @ 100 mls/hr Q6H IV Last administered on 08/03/17 03:53; Start 07/27/17 at 16:00 Famotidine (Pepcid) 20 mg BID PO Last administered on 08/02/17 20:29; Start 07/28/17 at 21:00 Haloperidol Lactate (Haldol Inj) 2 mg Q4H PRN IV agitation Last administered on 08/02/17 05:08; Start 07/28/17 at 15:00; Stop 08/02/17 at 16:34; Status DC Dexmedetomidine HCl 200 mcg/ Sodium Chloride 52 ml @ 3.38 mls/hr TITRATE PRN IV SEDATION Last administered on 07/29/17 12:03; Start 07/28/17 at 17:15; Stop 07/29/17 at 14:09; Status DC Lorazepam (Ativan Inj) 1 mg Q2H PRN IV PUSH agitation Last administered on 08/02 05:00; Start 07/28/17 at 17:30; Stop 08/02/17 at 12:51; Status DC Lorazepam (Ativan Inj) 1 mg ONCE ONCE IV PUSH ; Start 07/28/17 at 17:45; Stop 07/28/17 at 17:46; Status DC Albuterol/ Ipratropium (Duoneb Neb) 1 ampule Q6HR NEB INH Last administered on 08/02/17 14:49; Start 07/29/17 at 16:00; Stop 08/02/17 at 15:59; Status DC Tiotropium [place] (Spiriva Inh) 18 mcg DAILY INH Last administered on 09:22; Start 07/29/17 at 15:00 Budesonide/ Formoterol Fumarate (Symbicort 160-4.5 Inh) 1 puff Q12HR INH Last administered on 08/02/17 20:32; Start 07/29/17 at 15:00 Alprazolam (Xanax) 0.5 mg Q8H PRN PO ANXIETY Last administered on 07/29/17 14: 35; Start 07/29/17 at 14:30; Stop 08/02/17 at 16:34; Status DC Donepezil HCl (Aricept) 10 mg HS PO Last administered on 08/02/17 20:29; Start 07/29/17 at 21:00 Sertraline HCl (Zoloft) 25 mg DAILY PO Last administered on 08/02/17 09:21; Start 07/29/17 at 14:30 Methylprednisolone Sodium Succinate (SoluMEDROL INJ) 40 mg Q12HR IV PUSH Last administered on 08/02/17 09:22; Start 07/29/17 at 21:00; Stop 08/02/17 at 12:55 ; Status DC Guaifenesin (Mucinex Er) 600 mg BID PO Last administered on 08/02/17 20:30; Start 07/30/17 at 09:00 Haloperidol Lactate (Haldol Inj) 1 mg ONCE ONCE IV Last administered on 10:00; Start 07/30/17 at 10:00; Stop 07/30/17 at 10:09; Status DC Hydralazine HCl (Apresoline Inj) 10 mg Q6H PRN IV PUSH SEE LABEL COMMENTS Last administered on 07/31/17 09:13; Start 07/30/17 at 23:00 Heparin Sodium (Porcine) (Heparin Inj) 5,000 units ONCE ONCE IV PUSH ; Start 07/31/17 at 09:30; Stop 07/31/17 at 09:30; Status DC Heparin Sodium/ Dextrose 250 ml @ 11.448 mls/ hr TITRATE PRN IV Coagulation Management; Start 07/31/17 at 09:30; Stop 07/31/17 at 09:30; Status DC Sodium Chloride 1,000 ml @ 9,999 mls/hr Q6M IV Last administered on 07/31/17 21:50; Start 07/31/17 at 20:00; Stop 07/31/17 at 20:11; Status DC Furosemide (Lasix) 20 mg DAILY PO Last administered on 08/02/17 09:21; Start 08/02/17 at 09:00 Potassium Chloride (KCl) 10 meq Q12HR PO Last administered on 08/02/17 20:30; Start 08/01/17 at 21:00 Metoprolol Tartrate (Lopressor Inj) 2.5 mg ONCE ONCE IV PUSH Last administered on 08/02/17 01:05; Start 08/02/17 at 00:45; Stop 08/02/17 at 00:46 ; Status DC Quetiapine Fumarate (SEROquel) 25 mg BID@09,12 PO ; Start 08/03/17 at 09:00 Prednisone (Deltasone) 10 mg BID PO Last administered on 08/02/17 20:30; Start 08/02/17 at 21:00; Stop 08/07/17 at 20:59 A/P Problem List: (1) Acute hypercapnic respiratory failure ICD Code: J96.02 - Acute respiratory failure with hypercapnia (2) Septic shock ICD Code: A41.9 - Sepsis, unspecified organism; R65.21 - Severe sepsis with septic shock (3) HCAP (healthcare-associated pneumonia) ICD Code: J18.9 - Pneumonia, unspecified organism (4) Urinary tract infection ICD Code: N39.0 - Urinary tract infection, site not specified Status: Acute (5) Acute kidney injury ICD Code: N17.9 - Acute kidney failure, unspecified Status: Acute (6) Hyperglycemia ICD Code: R73.9 - Hyperglycemia, unspecified Status: Acute (7) Hypothermia ICD Code: T68.XXXA - Hypothermia, initial encounter Status: Acute (8) Acute encephalopathy ICD Code: G93.40 - Encephalopathy, unspecified Assessment and Plan A/P 1. 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 2. Acute Hypoxemic and Hypercarbic respiratory failure/Healthcare associated Pneumonia/COPD exacerbation/Basilar Pneumonia Bilateral Pleural Effusions. Extubated 07/28/17, continue bronchodilator, Mucolytic and incentive spirometry/discontinued Solu-Medrol and started on Prednisone 10 mg BID Broad spectrum antibiotics Zosyn, field property loss specialist following Doctor Alka Zhao 3. Septic Shock resolved/Severe Bradycardia/lactic acidosis- resolved. 4. Acute Kidney Injury Resolved - folwy cath was dc'ed- now being catheterized intermittently- will consider reinserting canas cath if urinary retention persists. PT consulted. PROPH: - Bilateral lower extremity SCDs. Subcutaneous heparin. Discharge Planning d/w the legal guardian today; awaiting the court decision on code status. dc planning to SNF within the next 24 hrs if stable. Problem Qualifiers (1) Urinary tract infection: (2) Hypothermia: Qualified Codes: T68.XXXA - Hypothermia, initial encounter Dorothy Constantino MD Aug 03, 2017 08:54
[2017-08-03] MEDS: DOCUSATE SODIUM 50 MG/SENNA 8.6 MG TAB PO SCH ×2 (09:00→20:00)
[2017-08-03] MEDS: guaiFENesin E.R. 600 MG TAB PO SCH ×2 (09:03→20:00)
[2017-08-03] MEDS: POTASSIUM CHLORIDE 10 MEQ CONTROLLED RELEASE TAB PO SCH ×2 (09:03→20:00)
[2017-08-03] MEDS: SERTRALINE HCL 50 MG TAB PO SCH (09:03)
[2017-08-03] MEDS: FUROSEMIDE 20 MG TAB PO SCH (09:04)
[2017-08-03] MEDS: QUEtiapine FUMARATE 25 MG TAB PO SCH ×2 (09:04→12:37)
[2017-08-03] MEDS: ASPIRIN EC 81 MG TABEC PO SCH (09:04)
[2017-08-03] MEDS: predniSONE 10 MG TAB PO SCH ×2 (09:04→20:00)
[2017-08-03] MEDS: FAMOTIDINE 20 MG TAB PO SCH (09:04)
[2017-08-03] MEDS: BUDESONIDE-FORMOTEROL 160/4.5 MCG INHALER INH SCH ×2 (09:09→20:01)
[2017-08-03] MEDS: TIOTROPIUM BROMIDE 18 MCG INH INH SCH (09:10)
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
--- NOTE | 2017-08-03 19:15 | HHI.PR ---
Subjective Remarks Feels better and on o2 2 L. Not in respiratory distress. CXR shows bilateral infiltrates.Confused. Objective Vital Signs Date Time Temp Pulse Resp B/P (MAP) Pulse Ox O2 Delivery O2 Flow Rate FiO2 08/03/17 16:00 98.1 102 20 127/80 (96) 96 08/03/17 12:00 97.5 113 20 159/79 (105) 100 08/03/17 09:18 95 Nasal Cannula 08/03/17 08:00 98.0 106 18 119/57 (77) 91 08/03/17 04:00 97.6 101 20 139/69 (92) 98 08/03/17 00:19 95 Nasal Cannula 4.00 08/03/17 00:00 98.1 98 20 114/56 (75) 93 08/02/17 22:10 98 08/02/17 21:41 98.2 98 20 150/69 (96) 99 08/02/17 20:00 113 08/02/17 20:00 98.3 113 19 135/63 (87) 100 08/02/17 19:54 100 Nasal Cannula 5.00 I/O 08/02/17 08/02/17 08/02/17 08/03/17 08/03/17 08/03/17 07:00 15:00 23:00 07:00 15:00 23:00 Intake Total 120 ml 50 ml 770 ml Output Total 850 ml 690 ml 900 ml Balance -850 ml -690 ml 120 ml 50 ml -130 ml Intake Oral 120 ml 720 ml IV Total 50 ml 50 ml Output Urine Total 850 ml 625 ml 900 ml Stool Total 65 ml Bladder Scan Volume Amount 311 ml 412 ml # Bowel Movements 2 2 Result Diagram: 08/03/17 0559 08/02/17 0439 Procedures Endotracheal Intubation and Extubation Objective Remarks GENERAL: This averagely built elderly lady is sitting in bed, pale and in no distress SKIN: Turgor is good.No lesions. HEENT: Head normocephalic. Pupils are reactive. Sclerae are clear. Tongue was dry. Throat clear. Nasal mucosa is clear. Ears - No inflammation. NECK: Supple. No bruits or thyroid enlargement. CHEST: Decreased breath sounds at the bases with basilar crackles. Occasional wheezes are also heard in the upper chest. HEART SOUNDS: Irregular S1 and S2. No murmur. No S3. ABDOMEN: Soft, protuberant. No mass. No organomegaly. EXTREMITIES: Decreased pulses with reflexes 1+ and the patient does move her extremities with no gross motor deficits. No edema. Assessment and Plan Assessment and Plan IMPRESSION 1. Hypoxemic, hypercapnic respiratory failure, resolved. 2. COPD with chronic bronchitis and emphysema with acute exacerbation. 3. Basilar pneumonia. 4. Metabolic encephalopathy. 5. Dementia. 6. Severe sepsis and lactic acidosis.Resolved 7. Acute kidney injury.Resolved 8. Pleural effusions. Plan : 1. IS at bedside q3h 2. Continue Duoneb nebs qid. 3. Continue antibiotics.and switch to PO Augmentin for 7 days 4. O2 at 3 L N/C daytime 5. PT Evaluation . 6. lasix 20 mg daily. 7. CBC ,BMP in am. 8. Add Seroquel 25 mg bid 9. Prednisone 10 mg BID X 5 days Romina Beebe MD Aug 03, 2017 19:15
[2017-08-03] MEDS: DONEPEZIL HCL 5 MG TAB PO SCH (20:00)
[2017-08-03] MEDS: AMOXICIL-CLAV 600 MG/5 ML LIQ 125 ML BTL PO SCH (22:45)
[2017-08-04] VITALS (8 sets, daily range): BP systolic 106–174; BP diastolic 53–83; PULSE 96–114; RESP 18–23; TEMP 98–99.2; O2SAT 90–95
[2017-08-04] MEDS: CHLORHEXIDINE GLUCONATE 2 % 1 PACK (2 CLOTHS) TOP SCH (03:35)
[2017-08-04] MEDS: HEPARIN SODIUM - SQ 10,000 UNITS/ML VIAL SQ SCH ×3 (03:38→21:29)
[2017-08-04] MEDS: INSULIN NovoLIN REGULAR SUPPLEMENTAL SCALE SQ SCH ×3 (05:07→16:16)
[2017-08-04] MEDS: DOCUSATE SODIUM 50 MG/SENNA 8.6 MG TAB PO SCH ×2 (09:00→21:30)
[2017-08-04] MEDS: AMOXICIL-CLAV 600 MG/5 ML LIQ 125 ML BTL PO SCH ×2 (09:00→21:00)
--- NOTE | 2017-08-04 09:32 | HHI.PR ---
Subjective Remarks with mild sob. no fever. had a few loose BM's over night. d/w the RN. Objective Vitals Vital Signs Date Time Temp Pulse Resp B/P (MAP) Pulse Ox O2 Delivery O2 Flow Rate FiO2 08/04/17 08:00 98.3 114 18 174/83 (113) 90 08/04/17 04:00 98.2 97 23 139/60 (86) 93 08/04/17 00:00 Nasal Cannula 2.00 Humidified 08/04/17 00:00 98.1 108 19 131/70 (90) 95 08/03/17 20:45 100 08/03/17 20:00 97.8 117 21 152/77 (102) 97 08/03/17 16:00 98.1 102 20 127/80 (96) 96 08/03/17 12:00 97.5 113 20 159/79 (105) 100 I/O 08/03/17 08/03/17 08/03/17 08/04/17 08/04/17 08/04/17 07:00 15:00 23:00 07:00 15:00 23:00 Intake Total 120 ml 50 ml 770 ml 200 ml Output Total 900 ml Balance 120 ml 50 ml -130 ml 200 ml Intake Oral 120 ml 720 ml 200 ml IV Total 50 ml 50 ml Output Urine Total 900 ml Bladder Scan Volume Amount 412 ml # Voids 6 # Bowel Movements 2 2 2 Result Diagram: 08/03/17 0559 08/02/17 0439 Imaging Last Impressions Chest X-Ray 08/01/17 0600 Signed Impressions: Service Date/Time: Tuesday, August 01, 2017 04:34 - CONCLUSION: Increased bilateral lower lung zone opacity indicating pulmonary edema, consolidation, or atelectasis. New small bilateral pleural effusions. Fili Warren MD Chest CT 07/29/17 1808 Signed Impressions: Service Date/Time: July 20:44 - CONCLUSION: 1. Bilateral [id number] pleural effusions right greater than left. 2. Consolidation in the right lower lobe. 3. Mild cardiomegaly. Keaton Montalvo MD Head CT 07/26/17 0873 Signed Impressions: Service Date/Time: Wednesday, July 26, 2017 09:14 - CONCLUSION: 1. No evidence of acute intracranial pathology. No masses are identified.8 Sukhjinder Bhatka MD Objective Remarks GENERAL: in no apparent distress. CARDIOVASCULAR: Regular rate and regular rhythm without murmurs, gallops, or rubs. RESPIRATORY: Clear to auscultation. Breath sounds equal bilaterally. No wheezes , rales, or rhonchi. GASTROINTESTINAL: Abdomen soft, non-tender, nondistended. Normal, active bowel sounds MUSCULOSKELETAL: Extremities without clubbing, cyanosis, or edema. NEURO: awake but not oriented to time or place. Procedures central line placement. Medications and IVs Current Medications IV Flush (NS Flush) 2 ml UNSCH PRN IV FLUSH FLUSH AFTER USING IV ACCESS; Start 07/26/17 at 08:15 Sodium Chloride 1,000 ml @ 125 mls/hr Q8H IV Last administered on 07/26/17 08:40; Start 07/26/17 at 08:14; Stop 07/26/17 at 16:13; Status DC Etomidate (Amidate Inj) 20 mg ONCE ONCE IVP Last administered on 07/26/17 09 :03; Start 07/26/17 at 09:00; Stop 07/26/17 at 09:02; Status DC Succinylcholine Chloride (Quelicin Inj) 100 mg ONCE ONCE IV PUSH Last administered on 07/26/17 09:03; Start 07/26/17 at 09:00; Stop 07/26/17 at 09 :02; Status DC Propofol 100 ml @ 1.8 mls/hr TITRATE PRN IV Ordered RASS Last administered on 07/27/17 11:49; Start 07/26/17 at 09:00; Stop 07/28/17 at 10:34; Status DC Piperacillin Sod/ Tazobactam Sod 100 ml @ 200 mls/hr ONCE STAT IV Last administered on 07/26/17 09:56; Start 07/26/17 at 08:58; Stop 07/26/17 at 09 :27; Status DC Azithromycin 500 mg/Sodium Chloride 250 ml @ 250 mls/hr ONCE STAT IV Last administered on 07/26/17 10:42; Start 07/26/17 at 08:58; Stop 07/26/17 at 09 :57; Status DC Pharmacy Profile Note 0 ml @ 0 mls/hr UNSCH OTHER ; Start 07/26/17 at 10:00; Stop 07/28/17 at 10:34; Status DC Vancomycin HCl 1200 mg/Sodium Chloride 262 ml @ 250 mls/hr ONCE ONCE IV ; Start 07/26/17 at 10:00; Stop 07/26/17 at 11:02; Status UNV Albuterol/ Ipratropium (Duoneb Neb) 1 ampule Q6HR NEB INH Last administered on 07/29/17 09:15; Start 07/26/17 at 11:00; Stop 07/29/17 at 14:08; Status DC Albuterol/ Ipratropium (Duoneb Neb) 1 ampule Q2HR NEB PRN INH WHEEZING; Start 07/26/17 at 10:00 Dextrose (D50w (Vial) Inj) 25 ml UNSCH PRN IV PUSH HYPOGLYCEMIA-SEE COMMENTS Last administered on 07/31/17 00:31; Start 07/26/17 at 10:00 Insulin Human Regular (NovoLIN R SUPPLEMENTAL SCALE) 1 Q6HR SQ Last administered on 07/31/17 18:00; Start 07/26/17 at 12:00 Chlorhexidine Gluconate (Peridex 0.12% Liq) 15 ml BID@08,20 MT Last administered on 08/01/17 09:02; Start 07/26/17 at 20:00; Stop 08/01/17 at 20: 33; Status DC Magnesium Oxide (Mag-Ox) 800 mg UNSCH PRN PO For Magnesium 1.2 - 1.6 mg/dL; Start 07/26/17 at 10:00; Stop 07/26/17 at 13:31; Status DC Magnesium Sulfate 4 gm/Sodium Chloride 100 ml @ 50 mls/hr UNSCH PRN IV For Magnesium 0.9 - 1.1 mg/dL; Start 07/26/17 at 10:00; Stop 07/26/17 at 13:31; Status DC Magnesium Sulfate 2 gm/Sodium Chloride 100 ml @ 50 mls/hr UNSCH PRN IV For Magnesium 1.2 - 1.6 mg/dL; Start 07/26/17 at 10:00; Stop 07/26/17 at 13:31; Status DC Potassium Chloride 100 ml @ 50 mls/hr Q2H PRN IV For Potassium 2.8 - 3.2 mEq/L ; Start 07/26/17 at 10:00; Stop 07/26/17 at 13:31; Status DC Potassium Chloride 100 ml @ 50 mls/hr Q2H PRN IV For Potassium 3.3 - 3.5 mEq/L ; Start 07/26/17 at 10:00; Stop 07/26/17 at 13:31; Status DC Potassium Chloride 100 ml @ 50 mls/hr Q2H PRN IV For Potassium 2.8 - 3.2 mEq/L ; Start 07/26/17 at 10:00; Stop 07/26/17 at 13:31; Status DC Potassium Chloride 100 ml @ 25 mls/hr UNSCH PRN IV For Potassium 3.3 - 3.5 mEq /L; Start 07/26/17 at 10:00; Stop 07/26/17 at 13:31; Status DC Potassium Phosphate (K-Phos) 2,000 mg Q4H PRN PO For Phosphorus < 2.5 mg/dL; Start 07/26/17 at 10:00; Stop 07/26/17 at 13:31; Status DC Potassium Phosphate (K-Phos) 2,000 mg UNSCH PRN PO/TUBE SEE LABEL COMMENTS; Start 07/26/17 at 10:00; Stop 07/26/17 at 13:31; Status DC Potassium Phosphate 30 mmol/ Sodium Chloride 260 ml @ 42 mls/hr UNSCH PRN IV SEE LABEL COMMENTS; Start 07/26/17 at 10:00; Stop 07/26/17 at 13:31; Status DC Sodium Phosphate 30 mmol/Sodium Chloride 250 ml @ 42 mls/hr UNSCH PRN IV For Phosphorus < 2.5 mg/dL; Start 07/26/17 at 10:00; Stop 07/26/17 at 13:31; Status DC Fentanyl Citrate 250 ml @ 5 mls/hr TITRATE PRN IV SEDATION; Start 07/26/17 at 11:00; Stop 07/28/17 at 10:34; Status DC Acetaminophen (Tylenol) 650 mg Q6H PRN PO PAIN 1-10 AND/OR FEVER >101F Last administered on 08/01/17 05:07; Start 07/26/17 at 11:00 Famotidine (Pepcid Inj) 10 mg Q12HR IV PUSH Last administered on 07/28/17 09: 24; Start 07/26/17 at 21:00; Stop 07/28/17 at 10:34; Status DC Ondansetron HCl (Zofran Inj) 4 mg Q6H PRN IV PUSH NAUSEA OR VOMITING; Start at 11:00 Heparin Sodium (Porcine) (Heparin Inj) 5,000 units Q8H SQ Last administered on 08/04/17 03:38; Start 07/26/17 at 12:00 Miscellaneous Information 1 [id number] Last administered on 07/26/17 13:33; Start 07/26/17 at 10:00 Chlorhexidine Gluconate (Chlorhexidine 2% Cloth) Taper DAILY@04 TOP Last administered on 08/02/17 04:00; Start 07/27/17 at 04:00; Stop 07/23/18 at 03: 59 Chlorhexidine Gluconate (Chlorhexidine 2% Cloth) 3 pack UNSCH PRN TOP HYGIENIC CARE; Start 07/26/17 at 10:00 Senna/Docusate Sodium (Hedy-Colace) 1 tab BID PO Last administered on 20:00; Start 07/26/17 at 21:00 Magnesium Hydroxide (Milk Of Magnesia Liq) 30 ml Q12H PRN PO Mild constipation ; Start 07/26/17 at 10:00 Sennosides (Senokot) 17.2 mg Q12H PRN PO Moderate constipation; Start at 10:00 Bisacodyl (Dulcolax Supp) 10 mg DAILY PRN RECTAL SEVERE CONSITIPATION; Start 07/26/17 at 10:00 Lactulose (Lactulose Liq) 30 ml DAILY PRN PO SEVERE CONSITIPATION; Start 07/26 at 10:00 Piperacillin Sod/ Tazobactam Sod 50 ml @ 100 mls/hr Q8H IV Last administered on 07/27/17 09:25; Start 07/26/17 at 18:00; Stop 07/27/17 at 15:45; Status DC Azithromycin 500 mg/Sodium Chloride 250 ml @ 250 mls/hr Q24H IV ; Start at 10:00; Stop 07/27/17 at 10:00; Status DC Vancomycin HCl 1000 mg/Sodium Chloride 250 ml @ 250 mls/hr Q24H IV Last administered on 07/28/17 09:22; Start 07/26/17 at 11:00; Stop 07/28/17 at 10: 34; Status DC Miscellaneous Information SPECIFIC LAB TO BE DRAWN:vancomy... ONCE ONCE .XX ; Start 07/29/17 at 10:45; Stop 07/29/17 at 10:46; Status Cancel Midazolam HCl (Versed Inj) 5 mg STK-MED ONCE .ROUTE ; Start 07/26/17 at 10:54; Stop 07/26/17 at 10:55; Status DC Midazolam HCl (Versed Inj) 2.5 mg ONCE ONCE IV PUSH Last administered on 07/26 11:00; Start 07/26/17 at 11:00; Stop 07/26/17 at 11:01; Status DC Atropine Sulfate (Atropine Inj) 1 mg STK-MED ONCE .ROUTE ; Start 07/26/17 at 12 :03; Stop 07/26/17 at 12:04; Status DC Calcium Chloride (Calcium Chloride Inj) 2 gm STK-MED ONCE .ROUTE ; Start at 12:06; Stop 07/26/17 at 12:07; Status DC Epinephrine HCl (EPINEPHrine (1:10,000) INJ) 1 mg STK-MED ONCE .ROUTE ; Start 07/26/17 at 12:06; Stop 07/26/17 at 12:07; Status DC Methylprednisolone Sodium Succinate (SoluMEDROL INJ) 60 mg Q12HR IV PUSH Last administered on 07/29/17 07:47; Start 07/26/17 at 13:15; Stop 07/29/17 at 18: 08; Status DC Aspirin (Ecotrin Ec) 81 mg DAILY PO Last administered on 08/03/17 09:04; Start 07/26/17 at 13:15 Sodium Chloride 1,000 ml @ 999 mls/hr Q1H1M IV Last administered on 13:35; Start 07/26/17 at 13:00; Stop 07/26/17 at 16:00; Status DC Potassium Chloride 100 ml @ 50 mls/hr Q2H PRN IV For Potassium 2.8 - 3.2 mEq/L ; Start 07/26/17 at 13:30; Stop 08/02/17 at 16:34; Status DC Potassium Chloride 100 ml @ 50 mls/hr Q2H PRN IV For Potassium 2.8 - 3.2 mEq/L ; Start 07/26/17 at 13:30; Stop 08/02/17 at 16:34; Status DC Potassium Bicarb/ Potassium Chloride (K-Lyte Cl Eff) 50 meq UNSCH PRN PO For Potassium 3.3 - 3.5 mEq/L; Start 07/26/17 at 13:30 Potassium Chloride 100 ml @ 25 mls/hr UNSCH PRN IV For Potassium 3.3 - 3.5 mEq /L; Start 07/26/17 at 13:30; Stop 08/02/17 at 16:34; Status DC Potassium Chloride 100 ml @ 50 mls/hr Q2H PRN IV For Potassium 3.3 - 3.5 mEq/L ; Start 07/26/17 at 13:30; Stop 08/02/17 at 16:34; Status DC Magnesium Sulfate 4 gm/Sodium Chloride 100 ml @ 50 mls/hr UNSCH PRN IV For Magnesium 0.9 - 1.1 mg/dL; Start 07/26/17 at 13:30; Stop 08/02/17 at 16:34; Status DC Magnesium Oxide (Mag-Ox) 800 mg UNSCH PRN PO For Magnesium 1.2 - 1.6 mg/dL; Start 07/26/17 at 13:30 Magnesium Sulfate 2 gm/Sodium Chloride 100 ml @ 50 mls/hr UNSCH PRN IV For Magnesium 1.2 - 1.6 mg/dL; Start 07/26/17 at 13:30; Stop 08/02/17 at 16:34; Status DC Potassium Phosphate (K-Phos) 2,000 mg Q4H PRN PO For Phosphorus < 2.5 mg/dL; Start 07/26/17 at 13:30 Sodium Phosphate 30 mmol/Sodium Chloride 250 ml @ 42 mls/hr UNSCH PRN IV For Phosphorus < 2.5 mg/dL; Start 07/26/17 at 13:30; Stop 08/02/17 at 16:34; Status DC Potassium Phosphate (K-Phos) 2,000 mg UNSCH PRN PO/TUBE SEE LABEL COMMENTS; Start 07/26/17 at 13:30 Potassium Phosphate 30 mmol/ Sodium Chloride 260 ml @ 42 mls/hr UNSCH PRN IV SEE LABEL COMMENTS; Start 07/26/17 at 13:30; Stop 08/02/17 at 16:34; Status DC Vasopressin 40 units/Dextrose 100 ml @ 1.5 mls/hr Q24H IV ; Start 07/26/17 at 14:14 Sodium Bicarbonate (Sodium Bicarbonate 8.4% Inj) 50 meq STK-MED ONCE IV ; Start 07/26/17 at 05:00; Stop 07/26/17 at 16:22; Status DC Sodium Chloride 1,000 ml @ 0 mls/hr BOLUS ONCE IV Last administered on 17:45; Start 07/26/17 at 17:45; Stop 07/26/17 at 17:46; Status DC Norepinephrine Bitartrate 250 ml @ 7.5 mls/hr TITRATE PRN IV Maintain MAP > 65 mmHg; Start 07/26/17 at 17:45; Stop 07/28/17 at 10:34; Status DC Dexmedetomidine HCl 200 mcg/ Sodium Chloride 52 ml @ 3.35 mls/hr TITRATE PRN IV SEDATION; Start 07/27/17 at 13:45; Stop 07/27/17 at 15:35; Status DC Budesonide (Pulmicort Respule Neb) 0.5 mg Q12HR NEB NEB Last administered on 07/29/17 09:15; Start 07/27/17 at 14:00; Stop 07/29/17 at 14:09; Status DC Dexmedetomidine HCl 1000 mcg/ Sodium Chloride 250 ml @ 3.22 mls/hr TITRATE PRN IV SEDATION Last administered on 07/28/17 07:47; Start 07/27/17 at 15:45; Stop 07/28/17 at 10:34; Status DC Piperacillin Sod/ Tazobactam Sod 50 ml @ 100 mls/hr Q6H IV Last administered on 08/03/17 16:50; Start 07/27/17 at 16:00; Stop 08/03/17 at 19:17; Status DC Famotidine (Pepcid) 20 mg BID PO Last administered on 08/03/17 09:04; Start 07/28/17 at 21:00; Stop 08/03/17 at 15:45; Status DC Haloperidol Lactate (Haldol Inj) 2 mg Q4H PRN IV agitation Last administered on 08/02/17 05:08; Start 07/28/17 at 15:00; Stop 08/02/17 at 16:34; Status DC Dexmedetomidine HCl 200 mcg/ Sodium Chloride 52 ml @ 3.38 mls/hr TITRATE PRN IV SEDATION Last administered on 07/29/17 12:03; Start 07/28/17 at 17:15; Stop 07/29/17 at 14:09; Status DC Lorazepam (Ativan Inj) 1 mg Q2H PRN IV PUSH agitation Last administered on 08/02 05:00; Start 07/28/17 at 17:30; Stop 08/02/17 at 12:51; Status DC Lorazepam (Ativan Inj) 1 mg ONCE ONCE IV PUSH ; Start 07/28/17 at 17:45; Stop 07/28/17 at 17:46; Status DC Albuterol/ Ipratropium (Duoneb Neb) 1 ampule Q6HR NEB INH Last administered on 08/02/17 14:49; Start 07/29/17 at 16:00; Stop 08/02/17 at 15:59; Status DC Tiotropium [place] (Spiriva Inh) 18 mcg DAILY INH Last administered on 09:10; Start 07/29/17 at 15:00 Budesonide/ Formoterol Fumarate (Symbicort 160-4.5 Inh) 1 puff Q12HR INH Last administered on 08/03/17 20:01; Start 07/29/17 at 15:00 Alprazolam (Xanax) 0.5 mg Q8H PRN PO ANXIETY Last administered on 07/29/17 14: 35; Start 07/29/17 at 14:30; Stop 08/02/17 at 16:34; Status DC Donepezil HCl (Aricept) 10 mg HS PO Last administered on 08/03/17 20:00; Start 07/29/17 at 21:00 Sertraline HCl (Zoloft) 25 mg DAILY PO Last administered on 08/03/17 09:03; Start 07/29/17 at 14:30 Methylprednisolone Sodium Succinate (SoluMEDROL INJ) 40 mg Q12HR IV PUSH Last administered on 08/02/17 09:22; Start 07/29/17 at 21:00; Stop 08/02/17 at 12:55 ; Status DC Guaifenesin (Mucinex Er) 600 mg BID PO Last administered on 08/03/17 20:00; Start 07/30/17 at 09:00 Haloperidol Lactate (Haldol Inj) 1 mg ONCE ONCE IV Last administered on 10:00; Start 07/30/17 at 10:00; Stop 07/30/17 at 10:09; Status DC Hydralazine HCl (Apresoline Inj) 10 mg Q6H PRN IV PUSH SEE LABEL COMMENTS Last administered on 07/31/17 09:13; Start 07/30/17 at 23:00 Heparin Sodium (Porcine) (Heparin Inj) 5,000 units ONCE ONCE IV PUSH ; Start 07/31/17 at 09:30; Stop 07/31/17 at 09:30; Status DC Heparin Sodium/ Dextrose 250 ml @ 11.448 mls/ hr TITRATE PRN IV Coagulation Management; Start 07/31/17 at 09:30; Stop 07/31/17 at 09:30; Status DC Sodium Chloride 1,000 ml @ 9,999 mls/hr Q6M IV Last administered on 07/31/17 21:50; Start 07/31/17 at 20:00; Stop 07/31/17 at 20:11; Status DC Furosemide (Lasix) 20 mg DAILY PO Last administered on 08/03/17 09:04; Start 08/02/17 at 09:00 Potassium Chloride (KCl) 10 meq Q12HR PO Last administered on 08/03/17 20:00; Start 08/01/17 at 21:00 Metoprolol Tartrate (Lopressor Inj) 2.5 mg ONCE ONCE IV PUSH Last administered on 08/02/17 01:05; Start 08/02/17 at 00:45; Stop 08/02/17 at 00:46 ; Status DC Quetiapine Fumarate (SEROquel) 25 mg BID@09,12 PO Last administered on 12:37; Start 08/03/17 at 09:00 Prednisone (Deltasone) 10 mg BID PO Last administered on 08/03/17 20:00; Start 08/02/17 at 21:00; Stop 08/07/17 at 20:59 Amoxicillin/ Clavulanate Potassium (Augmentin 600 Mg/5 ml Liq) 600 mg Q12HR PO Last administered on 11/7/17at 22:45; Start 08/03/17 at 21:00 A/P Problem List: (1) Acute hypercapnic respiratory failure ICD Code: J96.02 - Acute respiratory failure with hypercapnia (2) Septic shock ICD Code: A41.9 - Sepsis, unspecified organism; R65.21 - Severe sepsis with septic shock (3) HCAP (healthcare-associated pneumonia) ICD Code: J18.9 - Pneumonia, unspecified organism (4) Urinary tract infection ICD Code: N39.0 - Urinary tract infection, site not specified Status: Acute (5) Acute kidney injury ICD Code: N17.9 - Acute kidney failure, unspecified Status: Acute (6) Hyperglycemia ICD Code: R73.9 - Hyperglycemia, unspecified Status: Acute (7) Hypothermia ICD Code: T68.XXXA - Hypothermia, initial encounter Status: Acute (8) Acute encephalopathy ICD Code: G93.40 - Encephalopathy, unspecified Assessment and Plan A/P 1. 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 2. Acute Hypoxemic and Hypercarbic respiratory failure/Healthcare associated Pneumonia/COPD exacerbation/Basilar Pneumonia Bilateral Pleural Effusions. Extubated 07/28/17, continue bronchodilator, Mucolytic and incentive spirometry/discontinued Solu-Medrol and started on Prednisone switched to po Augmentin- 3. Septic Shock resolved/Severe Bradycardia/lactic acidosis- resolved. 4. Acute Kidney Injury Resolved - 5. diarrhea- check the stool for c-diff. PT consulted. PROPH: - Bilateral lower extremity SCDs. Subcutaneous heparin. Discharge Planning previously d/w the legal guardian; awaiting the court decision on code status. dc to SNF tomorrow if stable- Problem Qualifiers (1) Urinary tract infection: (2) Hypothermia: Qualified Codes: T68.XXXA - Hypothermia, initial encounter Dorothy Constantino MD Aug 04, 2017 09:32
[2017-08-04] MEDS: FUROSEMIDE 20 MG TAB PO SCH (09:36)
[2017-08-04] MEDS: QUEtiapine FUMARATE 25 MG TAB PO SCH ×2 (09:36→12:00)
[2017-08-04] MEDS: guaiFENesin E.R. 600 MG TAB PO SCH ×2 (09:36→21:29)
[2017-08-04] MEDS: predniSONE 10 MG TAB PO SCH ×2 (09:36→21:29)
[2017-08-04] MEDS: POTASSIUM CHLORIDE 10 MEQ CONTROLLED RELEASE TAB PO SCH ×2 (09:37→21:30)
[2017-08-04] MEDS: ASPIRIN EC 81 MG TABEC PO SCH (09:37)
[2017-08-04] MEDS: SERTRALINE HCL 50 MG TAB PO SCH (09:37)
[2017-08-04] MEDS: BUDESONIDE-FORMOTEROL 160/4.5 MCG INHALER INH SCH ×2 (09:38→21:28)
[2017-08-04] MEDS: TIOTROPIUM BROMIDE 18 MCG INH INH SCH (09:38)
[2017-08-04] MEDS: ONDANSETRON HCL 4 MG/2 ML VIAL IV PUSH PRN (09:46)
--- NOTE | 2017-08-04 19:44 | HHI.PR ---
Subjective Remarks No Change . Now on o2 2 L. Not in respiratory distress. CXR shows bilateral infiltrates. Confused. Objective Vital Signs Date Time Temp Pulse Resp B/P (MAP) Pulse Ox O2 Delivery O2 Flow Rate FiO2 08/04/17 16:00 98.0 114 18 118/53 (74) 90 08/04/17 12:00 99.2 112 18 110/58 (75) 93 08/04/17 08:00 98.3 114 18 174/83 (113) 90 08/04/17 08:00 105 08/04/17 08:00 96 Nasal Cannula 2.00 35 Humidified 08/04/17 04:00 98.2 97 23 139/60 (86) 93 08/04/17 00:00 Nasal Cannula 2.00 Humidified 08/04/17 00:00 98.1 108 19 131/70 (90) 95 08/03/17 20:45 100 08/03/17 20:00 97.8 117 21 152/77 (102) 97 I/O 08/03/17 08/03/17 08/03/17 08/04/17 08/04/17 08/04/17 07:00 15:00 23:00 07:00 15:00 23:00 Intake Total 120 ml 50 ml 770 ml 200 ml 480 ml Output Total 900 ml Balance 120 ml 50 ml -130 ml 200 ml 480 ml Intake Oral 120 ml 720 ml 200 ml 480 ml IV Total 50 ml 50 ml Output Urine Total 900 ml Bladder Scan Volume Amount 412 ml # Voids 6 3 # Bowel Movements 2 2 2 1 Result Diagram: 08/03/17 0559 08/04/17 0650 Procedures Endotracheal Intubation and Extubation Objective Remarks GENERAL: This averagely built elderly lady is sitting in bed, pale and in no distress SKIN: Turgor is good.No lesions. HEENT: Head normocephalic. Pupils are reactive. Sclerae are clear. Tongue was dry. Throat clear. Nasal mucosa is clear. Ears - No inflammation. NECK: Supple. No bruits or thyroid enlargement. CHEST: Decreased breath sounds at the bases with occ basilar crackles. Occasional wheezes are also heard in the upper chest. HEART SOUNDS: Irregular S1 and S2. No murmur. No S3. ABDOMEN: Soft, protuberant. No mass. No organomegaly. EXTREMITIES: Decreased pulses with reflexes 1+ and the patient does move her extremities with no gross motor deficits. mild edema. Assessment and Plan Assessment and Plan IMPRESSION 1. Hypoxemic, hypercapnic respiratory failure, resolved. 2. COPD with chronic bronchitis and emphysema with acute exacerbation. 3. Basilar pneumonia. 4. Metabolic encephalopathy. 5. Dementia. 6. Severe sepsis and lactic acidosis.Resolved 7. Acute kidney injury.Resolved 8. Pleural effusions. Plan : 1. IS at bedside q3h 2. Continue Duoneb nebs qid. 3. PO Augmentin for 7 days 4. O2 at 3 L N/C 5. PT Evaluation . 6. Cont lasix 20 mg daily. 7. CBC ,CXR in am. 8. Cont Seroquel 25 mg bid 9. Prednisone 10 mg BID X 5 days Romina Beebe MD Aug 04, 2017 19:44
[2017-08-04] MEDS: DONEPEZIL HCL 5 MG TAB PO SCH (21:30)
[2017-08-05] VITALS (9 sets, daily range): BP systolic 127–147; BP diastolic 62–75; PULSE 79–124; RESP 16–22; TEMP 97.6–98.8; O2SAT 93–98
[2017-08-05] MEDS: CHLORHEXIDINE GLUCONATE 2 % 1 PACK (2 CLOTHS) TOP SCH (03:51)
[2017-08-05] MEDS: HEPARIN SODIUM - SQ 10,000 UNITS/ML VIAL SQ SCH ×3 (03:52→20:27)
[2017-08-05] MEDS: INSULIN NovoLIN REGULAR SUPPLEMENTAL SCALE SQ SCH ×5 (05:21→23:39)
--- NOTE | 2017-08-05 07:06 | RADRPT ---
EXAM DATE/TIME: 08/05/2017 06:27 [place] COMPARISON: CHEST SINGLE AP, August 01, 2017, 4:34. INDICATIONS : Short of breath. MEDICAL HISTORY : Hypertension. Cardiovascular disease. SURGICAL HISTORY : None. ENCOUNTER: Subsequent ACUITY: 2 weeks PAIN SCORE: Non-responsive. LOCATION: Bilateral chest FINDINGS: There is increased interstitial markings bilaterally bilateral pleural effusions characteristic for p ulmonary edema. The heart size is enlarged but stable. The pulmonary edema appears to be about the sa me or mildly increased compared to the prior exam. There is no evidence of pneumothorax. The bony str uctures are stable. CONCLUSION: Bilateral pulmonary edema. Clark Duncan MD on August 05, 2017 at 7:04 Board Certified Radiologist. This report was verified electronically.
[2017-08-05] MEDS: DOCUSATE SODIUM 50 MG/SENNA 8.6 MG TAB PO SCH ×2 (08:54→20:27)
[2017-08-05] MEDS: POTASSIUM CHLORIDE 10 MEQ CONTROLLED RELEASE TAB PO SCH ×2 (08:54→20:27)
[2017-08-05] MEDS: guaiFENesin E.R. 600 MG TAB PO SCH ×2 (08:54→20:28)
[2017-08-05] MEDS: FUROSEMIDE 20 MG TAB PO SCH (08:54)
[2017-08-05] MEDS: SERTRALINE HCL 50 MG TAB PO SCH (08:54)
[2017-08-05] MEDS: predniSONE 10 MG TAB PO SCH ×2 (08:55→20:27)
[2017-08-05] MEDS: BUDESONIDE-FORMOTEROL 160/4.5 MCG INHALER INH SCH ×2 (08:55→20:28)
[2017-08-05] MEDS: ASPIRIN EC 81 MG TABEC PO SCH (08:55)
[2017-08-05] MEDS: QUEtiapine FUMARATE 25 MG TAB PO SCH ×2 (08:55→11:57)
[2017-08-05] MEDS: TIOTROPIUM BROMIDE 18 MCG INH INH SCH (09:00)
--- NOTE | 2017-08-05 10:43 | HHI.PR ---
Subjective Remarks with some sob and congestion. no fever. now on six liters of oxygen via N/C. no diarrhea. d/w the RN. Objective Vitals Vital Signs Date Time Temp Pulse Resp B/P (MAP) Pulse Ox O2 Delivery O2 Flow Rate FiO2 08/05/17 09:04 Nasal Cannula 6.00 08/05/17 09:04 120 08/05/17 05:22 94 Nasal Cannula 6.00 Humidified 08/05/17 04:00 98.2 90 18 127/70 (89) 94 08/05/17 01:01 98 Simple Mask 6.00 08/05/17 00:59 97 Simple Mask 6.00 08/05/17 00:00 97.6 98 22 127/62 (83) 94 08/04/17 20:39 95 Nasal Cannula 2.00 08/04/17 20:11 102 08/04/17 20:00 Nasal Cannula 2.00 Humidified 08/04/17 20:00 98.7 96 18 106/59 (75) 95 08/04/17 16:00 98.0 114 18 118/53 (74) 90 08/04/17 12:00 99.2 112 18 110/58 (75) 93 I/O 08/04/17 08/04/17 08/04/17 08/05/17 08/05/17 08/05/17 07:00 15:00 23:00 07:00 15:00 23:00 Intake Total 200 ml 480 ml 480 ml Balance 200 ml 480 ml 480 ml Intake Oral 200 ml 480 ml 480 ml # Voids 6 3 3 # Bowel Movements 2 1 Result Diagram: 08/03/17 0559 08/04/17 0650 Imaging Last Impressions Chest X-Ray 08/05/17 0600 Signed Impressions: Service Date/Time: July 06:27 - CONCLUSION: Bilateral pulmonary edema. Clark Duncan MD Chest CT 07/29/17 1808 Signed Impressions: Service Date/Time: July 20:44 - CONCLUSION: 1. Bilateral [id number] pleural effusions right greater than left. 2. Consolidation in the right lower lobe. 3. Mild cardiomegaly. Keaton Montalvo MD Head CT 07/26/17 0884 Signed Impressions: Service Date/Time: Wednesday, July 26, 2017 09:14 - CONCLUSION: 1. No evidence of acute intracranial pathology. No masses are identified.8 Sukhjinder Bhakta MD Objective Remarks GENERAL: in no apparent distress. CARDIOVASCULAR: Regular rate and regular rhythm without murmurs, gallops, or rubs. RESPIRATORY: Clear to auscultation. Breath sounds equal bilaterally. No wheezes , rales, or rhonchi. GASTROINTESTINAL: Abdomen soft, non-tender, nondistended. Normal, active bowel sounds MUSCULOSKELETAL: Extremities without clubbing, cyanosis, or edema. NEURO: awake but not oriented to time or place. Procedures central line placement. Medications and IVs Current Medications IV Flush (NS Flush) 2 ml UNSCH PRN IV FLUSH FLUSH AFTER USING IV ACCESS; Start 07/26/17 at 08:15 Sodium Chloride 1,000 ml @ 125 mls/hr Q8H IV Last administered on 07/26/17 08:40; Start 07/26/17 at 08:14; Stop 07/26/17 at 16:13; Status DC Etomidate (Amidate Inj) 20 mg ONCE ONCE IVP Last administered on 07/26/17 09 :03; Start 07/26/17 at 09:00; Stop 07/26/17 at 09:02; Status DC Succinylcholine Chloride (Quelicin Inj) 100 mg ONCE ONCE IV PUSH Last administered on 07/26/17 09:03; Start 07/26/17 at 09:00; Stop 07/26/17 at 09 :02; Status DC Propofol 100 ml @ 1.8 mls/hr TITRATE PRN IV Ordered RASS Last administered on 07/27/17 11:49; Start 07/26/17 at 09:00; Stop 07/28/17 at 10:34; Status DC Piperacillin Sod/ Tazobactam Sod 100 ml @ 200 mls/hr ONCE STAT IV Last administered on 07/26/17 09:56; Start 07/26/17 at 08:58; Stop 07/26/17 at 09 :27; Status DC Azithromycin 500 mg/Sodium Chloride 250 ml @ 250 mls/hr ONCE STAT IV Last administered on 07/26/17 10:42; Start 07/26/17 at 08:58; Stop 07/26/17 at 09 :57; Status DC Pharmacy Profile Note 0 ml @ 0 mls/hr UNSCH OTHER ; Start 07/26/17 at 10:00; Stop 07/28/17 at 10:34; Status DC Vancomycin HCl 1200 mg/Sodium Chloride 262 ml @ 250 mls/hr ONCE ONCE IV ; Start 07/26/17 at 10:00; Stop 07/26/17 at 11:02; Status UNV Albuterol/ Ipratropium (Duoneb Neb) 1 ampule Q6HR NEB INH Last administered on 07/29/17 09:15; Start 07/26/17 at 11:00; Stop 07/29/17 at 14:08; Status DC Albuterol/ Ipratropium (Duoneb Neb) 1 ampule Q2HR NEB PRN INH WHEEZING Last administered on 08/05/17 00:57; Start 07/26/17 at 10:00 Dextrose (D50w (Vial) Inj) 25 ml UNSCH PRN IV PUSH HYPOGLYCEMIA-SEE COMMENTS Last administered on 07/31/17 00:31; Start 07/26/17 at 10:00 Insulin Human Regular (NovoLIN R SUPPLEMENTAL SCALE) 1 Q6HR SQ Last administered on 07/31/17 18:00; Start 07/26/17 at 12:00 Chlorhexidine Gluconate (Peridex 0.12% Liq) 15 ml BID@08,20 MT Last administered on 08/01/17 09:02; Start 07/26/17 at 20:00; Stop 08/01/17 at 20: 33; Status DC Magnesium Oxide (Mag-Ox) 800 mg UNSCH PRN PO For Magnesium 1.2 - 1.6 mg/dL; Start 07/26/17 at 10:00; Stop 07/26/17 at 13:31; Status DC Magnesium Sulfate 4 gm/Sodium Chloride 100 ml @ 50 mls/hr UNSCH PRN IV For Magnesium 0.9 - 1.1 mg/dL; Start 07/26/17 at 10:00; Stop 07/26/17 at 13:31; Status DC Magnesium Sulfate 2 gm/Sodium Chloride 100 ml @ 50 mls/hr UNSCH PRN IV For Magnesium 1.2 - 1.6 mg/dL; Start 07/26/17 at 10:00; Stop 07/26/17 at 13:31; Status DC Potassium Chloride 100 ml @ 50 mls/hr Q2H PRN IV For Potassium 2.8 - 3.2 mEq/L ; Start 07/26/17 at 10:00; Stop 07/26/17 at 13:31; Status DC Potassium Chloride 100 ml @ 50 mls/hr Q2H PRN IV For Potassium 3.3 - 3.5 mEq/L ; Start 07/26/17 at 10:00; Stop 07/26/17 at 13:31; Status DC Potassium Chloride 100 ml @ 50 mls/hr Q2H PRN IV For Potassium 2.8 - 3.2 mEq/L ; Start 07/26/17 at 10:00; Stop 07/26/17 at 13:31; Status DC Potassium Chloride 100 ml @ 25 mls/hr UNSCH PRN IV For Potassium 3.3 - 3.5 mEq /L; Start 07/26/17 at 10:00; Stop 07/26/17 at 13:31; Status DC Potassium Phosphate (K-Phos) 2,000 mg Q4H PRN PO For Phosphorus < 2.5 mg/dL; Start 07/26/17 at 10:00; Stop 07/26/17 at 13:31; Status DC Potassium Phosphate (K-Phos) 2,000 mg UNSCH PRN PO/TUBE SEE LABEL COMMENTS; Start 07/26/17 at 10:00; Stop 07/26/17 at 13:31; Status DC Potassium Phosphate 30 mmol/ Sodium Chloride 260 ml @ 42 mls/hr UNSCH PRN IV SEE LABEL COMMENTS; Start 07/26/17 at 10:00; Stop 07/26/17 at 13:31; Status DC Sodium Phosphate 30 mmol/Sodium Chloride 250 ml @ 42 mls/hr UNSCH PRN IV For Phosphorus < 2.5 mg/dL; Start 07/26/17 at 10:00; Stop 07/26/17 at 13:31; Status DC Fentanyl Citrate 250 ml @ 5 mls/hr TITRATE PRN IV SEDATION; Start 07/26/17 at 11:00; Stop 07/28/17 at 10:34; Status DC Acetaminophen (Tylenol) 650 mg Q6H PRN PO PAIN 1-10 AND/OR FEVER >101F Last administered on 08/01/17t 05:07; Start 07/26/17 at 11:00 Famotidine (Pepcid Inj) 10 mg Q12HR IV PUSH Last administered on 07/28/17 09: 24; Start 07/26/17 at 21:00; Stop 07/28/17 at 10:34; Status DC Ondansetron HCl (Zofran Inj) 4 mg Q6H PRN IV PUSH NAUSEA OR VOMITING Last administered on 08/04/17 09:46; Start 07/26/17 at 11:00 Heparin Sodium (Porcine) (Heparin Inj) 5,000 units Q8H SQ Last administered on 08/05/17 03:52; Start 07/26/17 at 12:00 Miscellaneous Information 1 [id number] XX Last administered on 07/26/17 13:33; Start 07/26/17 at 10:00 Chlorhexidine Gluconate (Chlorhexidine 2% Cloth) Taper DAILY@04 TOP Last administered on 08/02/17 04:00; Start 07/27/17 at 04:00; Stop 07/23/18 at 03: 59 Chlorhexidine Gluconate (Chlorhexidine 2% Cloth) 3 pack UNSCH PRN TOP HYGIENIC CARE; Start 07/26/17 at 10:00 Senna/Docusate Sodium (Hedy-Colace) 1 tab BID PO Last administered on 08:54; Start 07/26/17 at 21:00 Magnesium Hydroxide (Milk Of Magnesia Liq) 30 ml Q12H PRN PO Mild constipation ; Start 07/26/17 at 10:00 Sennosides (Senokot) 17.2 mg Q12H PRN PO Moderate constipation; Start at 10:00 Bisacodyl (Dulcolax Supp) 10 mg DAILY PRN RECTAL SEVERE CONSITIPATION; Start 07/26/17 at 10:00 Lactulose (Lactulose Liq) 30 ml DAILY PRN PO SEVERE CONSITIPATION; Start 07/26 at 10:00 Piperacillin Sod/ Tazobactam Sod 50 ml @ 100 mls/hr Q8H IV Last administered on 07/27/17 09:25; Start 07/26/17 at 18:00; Stop 07/27/17 at 15:45; Status DC Azithromycin 500 mg/Sodium Chloride 250 ml @ 250 mls/hr Q24H IV ; Start at 10:00; Stop 07/27/17 at 10:00; Status DC Vancomycin HCl 1000 mg/Sodium Chloride 250 ml @ 250 mls/hr Q24H IV Last administered on 07/28/17 09:22; Start 07/26/17 at 11:00; Stop 07/28/17 at 10: 34; Status DC Miscellaneous Information SPECIFIC LAB TO BE DRAWN:vancomy... ONCE ONCE .XX ; Start 07/29/17 at 10:45; Stop 07/29/17 at 10:46; Status Cancel Midazolam HCl (Versed Inj) 5 mg STK-MED ONCE .ROUTE ; Start 07/26/17 at 10:54; Stop 07/26/17 at 10:55; Status DC Midazolam HCl (Versed Inj) 2.5 mg ONCE ONCE IV PUSH Last administered on 07/26 11:00; Start 07/26/17 at 11:00; Stop 07/26/17 at 11:01; Status DC Atropine Sulfate (Atropine Inj) 1 mg STK-MED ONCE .ROUTE ; Start 07/26/17 at 12 :03; Stop 07/26/17 at 12:04; Status DC Calcium Chloride (Calcium Chloride Inj) 2 gm STK-MED ONCE .ROUTE ; Start at 12:06; Stop 07/26/17 at 12:07; Status DC Epinephrine HCl (EPINEPHrine (1:10,000) INJ) 1 mg STK-MED ONCE .ROUTE ; Start 07/26/17 at 12:06; Stop 07/26/17 at 12:07; Status DC Methylprednisolone Sodium Succinate (SoluMEDROL INJ) 60 mg Q12HR IV PUSH Last administered on 07/29/17 07:47; Start 07/26/17 at 13:15; Stop 07/29/17 at 18: 08; Status DC Aspirin (Ecotrin Ec) 81 mg DAILY PO Last administered on 08/05/17 08:55; Start 07/26/17 at 13:15 Sodium Chloride 1,000 ml @ 999 mls/hr Q1H1M IV Last administered on 13:35; Start 07/26/17 at 13:00; Stop 07/26/17 at 16:00; Status DC Potassium Chloride 100 ml @ 50 mls/hr Q2H PRN IV For Potassium 2.8 - 3.2 mEq/L ; Start 07/26/17 at 13:30; Stop 08/02/17 at 16:34; Status DC Potassium Chloride 100 ml @ 50 mls/hr Q2H PRN IV For Potassium 2.8 - 3.2 mEq/L ; Start 07/26/17 at 13:30; Stop 08/02/17 at 16:34; Status DC Potassium Bicarb/ Potassium Chloride (K-Lyte Cl Eff) 50 meq UNSCH PRN PO For Potassium 3.3 - 3.5 mEq/L; Start 07/26/17 at 13:30 Potassium Chloride 100 ml @ 25 mls/hr UNSCH PRN IV For Potassium 3.3 - 3.5 mEq /L; Start 07/26/17 at 13:30; Stop 08/02/17 at 16:34; Status DC Potassium Chloride 100 ml @ 50 mls/hr Q2H PRN IV For Potassium 3.3 - 3.5 mEq/L ; Start 07/26/17 at 13:30; Stop 08/02/17 at 16:34; Status DC Magnesium Sulfate 4 gm/Sodium Chloride 100 ml @ 50 mls/hr UNSCH PRN IV For Magnesium 0.9 - 1.1 mg/dL; Start 07/26/17 at 13:30; Stop 08/02/17 at 16:34; Status DC Magnesium Oxide (Mag-Ox) 800 mg UNSCH PRN PO For Magnesium 1.2 - 1.6 mg/dL; Start 07/26/17 at 13:30 Magnesium Sulfate 2 gm/Sodium Chloride 100 ml @ 50 mls/hr UNSCH PRN IV For Magnesium 1.2 - 1.6 mg/dL; Start 07/26/17 at 13:30; Stop 08/02/17 at 16:34; Status DC Potassium Phosphate (K-Phos) 2,000 mg Q4H PRN PO For Phosphorus < 2.5 mg/dL; Start 07/26/17 at 13:30 Sodium Phosphate 30 mmol/Sodium Chloride 250 ml @ 42 mls/hr UNSCH PRN IV For Phosphorus < 2.5 mg/dL; Start 07/26/17 at 13:30; Stop 08/02/17 at 16:34; Status DC Potassium Phosphate (K-Phos) 2,000 mg UNSCH PRN PO/TUBE SEE LABEL COMMENTS; Start 07/26/17 at 13:30 Potassium Phosphate 30 mmol/ Sodium Chloride 260 ml @ 42 mls/hr UNSCH PRN IV SEE LABEL COMMENTS; Start 07/26/17 at 13:30; Stop 08/02/17 at 16:34; Status DC Vasopressin 40 units/Dextrose 100 ml @ 1.5 mls/hr Q24H IV ; Start 07/26/17 at 14:14 Sodium Bicarbonate (Sodium Bicarbonate 8.4% Inj) 50 meq STK-MED ONCE IV ; Start 07/26/17 at 05:00; Stop 07/26/17 at 16:22; Status DC Sodium Chloride 1,000 ml @ 0 mls/hr BOLUS ONCE IV Last administered on 17:45; Start 07/26/17 at 17:45; Stop 07/26/17 at 17:46; Status DC Norepinephrine Bitartrate 250 ml @ 7.5 mls/hr TITRATE PRN IV Maintain MAP > 65 mmHg; Start 07/26/17 at 17:45; Stop 07/28/17 at 10:34; Status DC Dexmedetomidine HCl 200 mcg/ Sodium Chloride 52 ml @ 3.35 mls/hr TITRATE PRN IV SEDATION; Start 07/27/17 at 13:45; Stop 07/27/17 at 15:35; Status DC Budesonide (Pulmicort Respule Neb) 0.5 mg Q12HR NEB NEB Last administered on 07/29/17 09:15; Start 07/27/17 at 14:00; Stop 07/29/17 at 14:09; Status DC Dexmedetomidine HCl 1000 mcg/ Sodium Chloride 250 ml @ 3.22 mls/hr TITRATE PRN IV SEDATION Last administered on 07/28/17 07:47; Start 07/27/17 at 15:45; Stop 07/28/17 at 10:34; Status DC Piperacillin Sod/ Tazobactam Sod 50 ml @ 100 mls/hr Q6H IV Last administered on 08/03/17 16:50; Start 07/27/17 at 16:00; Stop 08/03/17 at 19:17; Status DC Famotidine (Pepcid) 20 mg BID PO Last administered on 08/03/17 09:04; Start 07/28/17 at 21:00; Stop 08/03/17 at 15:45; Status DC Haloperidol Lactate (Haldol Inj) 2 mg Q4H PRN IV agitation Last administered on 08/02/17 05:08; Start 07/28/17 at 15:00; Stop 08/02/17 at 16:34; Status DC Dexmedetomidine HCl 200 mcg/ Sodium Chloride 52 ml @ 3.38 mls/hr TITRATE PRN IV SEDATION Last administered on 07/29/17 12:03; Start 07/28/17 at 17:15; Stop 07/29/17 at 14:09; Status DC Lorazepam (Ativan Inj) 1 mg Q2H PRN IV PUSH agitation Last administered on 08/02 05:00; Start 07/28/17 at 17:30; Stop 08/02/17 at 12:51; Status DC Lorazepam (Ativan Inj) 1 mg ONCE ONCE IV PUSH ; Start 07/28/17 at 17:45; Stop 07/28/17 at 17:46; Status DC Albuterol/ Ipratropium (Duoneb Neb) 1 ampule Q6HR NEB INH Last administered on 08/02/17 14:49; Start 07/29/17 at 16:00; Stop 08/02/17 at 15:59; Status DC Tiotropium [place] (Spiriva Inh) 18 mcg DAILY INH Last administered on 09:38; Start 07/29/17 at 15:00 Budesonide/ Formoterol Fumarate (Symbicort 160-4.5 Inh) 1 puff Q12HR INH Last administered on 08/05/17 08:55; Start 07/29/17 at 15:00 Alprazolam (Xanax) 0.5 mg Q8H PRN PO ANXIETY Last administered on 07/29/17 14: 35; Start 07/29/17 at 14:30; Stop 08/02/17 at 16:34; Status DC Donepezil HCl (Aricept) 10 mg HS PO Last administered on 08/04/17 21:30; Start 07/29/17 at 21:00 Sertraline HCl (Zoloft) 25 mg DAILY PO Last administered on 08/05/17 08:54; Start 07/29/17 at 14:30 Methylprednisolone Sodium Succinate (SoluMEDROL INJ) 40 mg Q12HR IV PUSH Last administered on 08/02/17 09:22; Start 07/29/17 at 21:00; Stop 08/02/17 at 12:55 ; Status DC Guaifenesin (Mucinex Er) 600 mg BID PO Last administered on 08/05/17 08:54; Start 07/30/17 at 09:00 Haloperidol Lactate (Haldol Inj) 1 mg ONCE ONCE IV Last administered on 10:00; Start 07/30/17 at 10:00; Stop 07/30/17 at 10:09; Status DC Hydralazine HCl (Apresoline Inj) 10 mg Q6H PRN IV PUSH SEE LABEL COMMENTS Last administered on 07/31/17 09:13; Start 07/30/17 at 23:00 Heparin Sodium (Porcine) (Heparin Inj) 5,000 units ONCE ONCE IV PUSH ; Start 07/31/17 at 09:30; Stop 07/31/17 at 09:30; Status DC Heparin Sodium/ Dextrose 250 ml @ 11.448 mls/ hr TITRATE PRN IV Coagulation Management; Start 07/31/17 at 09:30; Stop 07/31/17 at 09:30; Status DC Sodium Chloride 1,000 ml @ 9,999 mls/hr Q6M IV Last administered on 07/31/17 21:50; Start 07/31/17 at 20:00; Stop 07/31/17 at 20:11; Status DC Furosemide (Lasix) 20 mg DAILY PO Last administered on 08/05/17 08:54; Start 08/02/17 at 09:00 Potassium Chloride (KCl) 10 meq Q12HR PO Last administered on 08/05/17 08:54; Start 08/01/17 at 21:00 Metoprolol Tartrate (Lopressor Inj) 2.5 mg ONCE ONCE IV PUSH Last administered on 08/02/17 01:05; Start 08/02/17 at 00:45; Stop 08/02/17 at 00:46 ; Status DC Quetiapine Fumarate (SEROquel) 25 mg BID@09,12 PO Last administered on 08:55; Start 08/03/17 at 09:00 Prednisone (Deltasone) 10 mg BID PO Last administered on 08/05/17 08:55; Start 08/02/17 at 21:00; Stop 08/07/17 at 20:59 Amoxicillin/ Clavulanate Potassium (Augmentin 600 Mg/5 ml Liq) 600 mg Q12HR PO Last administered on 08/04/17t 21:00; Start 08/03/17 at 21:00 A/P Problem List: (1) Acute hypercapnic respiratory failure ICD Code: J96.02 - Acute respiratory failure with hypercapnia (2) Septic shock ICD Code: A41.9 - Sepsis, unspecified organism; R65.21 - Severe sepsis with septic shock (3) HCAP (healthcare-associated pneumonia) ICD Code: J18.9 - Pneumonia, unspecified organism (4) Urinary tract infection ICD Code: N39.0 - Urinary tract infection, site not specified Status: Acute (5) Acute kidney injury ICD Code: N17.9 - Acute kidney failure, unspecified Status: Acute (6) Hyperglycemia ICD Code: R73.9 - Hyperglycemia, unspecified Status: Acute (7) Hypothermia ICD Code: T68.XXXA - Hypothermia, initial encounter Status: Acute (8) Acute encephalopathy ICD Code: G93.40 - Encephalopathy, unspecified Assessment and Plan A/P 1. Acute Metabolic Encephalopathy/CO2 Narcosis/Dementia by history- continue Sertraline and Aricept. 2. Acute Hypoxemic and Hypercarbic respiratory failure/Healthcare associated Pneumonia/COPD exacerbation/Basilar Pneumonia/ pulmonary edema Bilateral Pleural Effusions. Extubated 07/28/17, continue bronchodilator, Mucolytic and incentive spirometry/discontinued Solu-Medrol and started on Prednisone switched to po Augmentin- will change to IV lasix- check echo and repeat CXR tomorrow. 3. Septic Shock resolved/Severe Bradycardia/lactic acidosis- resolved. 4. Acute Kidney Injury Resolved - 5. diarrhea- resolved. PT consulted. PROPH: - Bilateral lower extremity SCDs. Subcutaneous heparin. Discharge Planning previously d/w the legal guardian; awaiting the court decision on code status. not ready for discharge today- worsening sob/ on six liters of oxygen with pulmonary edema. dc planning to SNF within the next 2-3 days if clinically improves. Problem Qualifiers (1) Urinary tract infection: (2) Hypothermia: Qualified Codes: T68.XXXA - Hypothermia, initial encounter Dorothy Constantino MD Aug 05, 2017 10:43
[2017-08-05] MEDS: AMOXICIL-CLAV 600 MG/5 ML LIQ 125 ML BTL PO SCH ×2 (11:54→20:27)
[2017-08-05] MEDS: FUROSEMIDE 20 MG/2 ML VIAL IV PUSH SCH ×2 (11:57→17:23)
[2017-08-05] MEDS: DONEPEZIL HCL 5 MG TAB PO SCH (20:27)
[2017-08-06] VITALS (13 sets, daily range): BP systolic 125–178; BP diastolic 58–83; PULSE 80–130; RESP 18–42; TEMP 97.7–99; O2SAT 84–96
[2017-08-06] MEDS: CHLORHEXIDINE GLUCONATE 2 % 1 PACK (2 CLOTHS) TOP SCH (04:00)
[2017-08-06] MEDS: HEPARIN SODIUM - SQ 10,000 UNITS/ML VIAL SQ SCH ×3 (04:27→20:48)
[2017-08-06] MEDS: INSULIN NovoLIN REGULAR SUPPLEMENTAL SCALE SQ SCH ×4 (04:40→23:58)
--- NOTE | 2017-08-06 07:14 | RADRPT ---
EXAM DATE/TIME: 08/06/2017 06:52 [facility] COMPARISON: No previous studies available for comparison. INDICATIONS : Short of breath MEDICAL HISTORY : Hypertension. Cardiovascular disease. SURGICAL HISTORY : None. ENCOUNTER: Subsequent ACUITY: 2 weeks PAIN SCORE: Non-responsive. LOCATION: Bilateral chest FINDINGS: There is cardiomegaly, bilateral effusions and basilar consolidation again seen, not significantly ch anged. Osseous structures are intact. CONCLUSION: No significant change has occurred. Brian Park MD on August 06, 2017 at 7:12 Board Certified Radiologist. This report was verified electronically.
[2017-08-06 08:34] LABS: HEMATOCRIT 40.4 % (35.0-46.0); MEAN CELL VOLUME 94.1 FL (80.0-100.0); MEAN CORPUSCULAR HEMOGLOBIN 29.7 PG (27.0-34.0); MEAN CORPUSCULAR HGB CONC 31.6 % (32.0-36.0); PLATELET COUNT 292 TH/MM3 (150-450); RED BLOOD COUNT 4.29 MIL/MM3 (4.00-5.30); RED CELL DISTRIBUTION WIDTH 14.9 % (11.6-17.2); REVIEW FLAG FINAL; WHITE BLOOD COUNT 13.3 TH/MM3 (4.0-11.0)
[2017-08-06] MEDS: DOCUSATE SODIUM 50 MG/SENNA 8.6 MG TAB PO SCH ×2 (09:00→20:49)
[2017-08-06] MEDS: BUDESONIDE-FORMOTEROL 160/4.5 MCG INHALER INH SCH ×2 (09:00→20:48)
[2017-08-06] MEDS: TIOTROPIUM BROMIDE 18 MCG INH INH SCH (09:00)
[2017-08-06] MEDS: AMOXICIL-CLAV 600 MG/5 ML LIQ 125 ML BTL PO SCH ×2 (09:00→20:49)
[2017-08-06] MEDS ORDERED: DILTIAZEM HCL 25 MG/5 ML VIAL ONE (09:00)
--- NOTE | 2017-08-06 09:04 | HHI.PR ---
Subjective Remarks in no acute distress. looks more comfortable today. now on four liters of oxygen via N/C. denies pain. Objective Vitals Vital Signs Date Time Temp Pulse Resp B/P (MAP) Pulse Ox O2 Delivery O2 Flow Rate FiO2 08/06/17 08:00 99.0 83 18 163/83 (109) 93 08/06/17 04:46 Nasal Cannula 4.00 Humidified 08/06/17 04:00 98.1 80 20 149/76 (100) 95 08/06/17 00:16 Nasal Cannula 4.00 08/06/17 00:00 97.7 81 20 157/72 (100) 96 08/05/17 21:32 Nasal Cannula 3.00 08/05/17 20:00 79 08/05/17 20:00 98.4 80 20 133/75 (94) 97 08/05/17 20:00 Nasal Cannula 4.00 Humidified 08/05/17 16:00 98.8 124 18 147/69 (95) 97 08/05/17 12:00 98.4 94 18 131/66 (87) 93 08/05/17 10:10 94 Nasal Cannula 3.00 08/05/17 09:04 Nasal Cannula 6.00 08/05/17 09:04 120 I/O 08/05/17 08/05/17 08/05/17 08/06/17 08/06/17 08/06/17 07:00 15:00 23:00 07:00 15:00 23:00 Intake Total 480 ml 600 ml 240 ml Balance 480 ml 600 ml 240 ml Intake Oral 480 ml 600 ml 240 ml # Voids 3 5 # Bowel Movements 0 6 Result Diagram: 08/06/17 0755 08/04/17 0650 Imaging Last Impressions Chest X-Ray 08/06/17 0600 Signed Impressions: Service Date/Time: Sunday, August 06, 2017 06:52 - CONCLUSION: No significant change has occurred. Brian Park MD Chest CT 07/29/17 180 Signed Impressions: Service Date/Time: July 20:44 - CONCLUSION: 1. Bilateral ucela-ij-ysbmrcgm pleural effusions right greater than left. 2. Consolidation in the right lower lobe. 3. Mild cardiomegaly. Keaton Montalvo MD Head CT 07/26/17 0824 Signed Impressions: Service Date/Time: Wednesday, July 26, 2017 09:14 - CONCLUSION: 1. No evidence of acute intracranial pathology. No masses are identified.8 Sukhjinder Bhakta MD Objective Remarks GENERAL: in no apparent distress. CARDIOVASCULAR: Regular rate and regular rhythm without murmurs, gallops, or rubs. RESPIRATORY: Clear to auscultation. Breath sounds equal bilaterally. No wheezes , rales, or rhonchi. GASTROINTESTINAL: Abdomen soft, non-tender, nondistended. Normal, active bowel sounds MUSCULOSKELETAL: Extremities without clubbing, cyanosis, or edema. NEURO: awake but not oriented to time or place. Procedures central line placement. Medications and IVs Current Medications IV Flush (NS Flush) 2 ml UNSCH PRN IV FLUSH FLUSH AFTER USING IV ACCESS; Start 07/26/17 at 08:15 Sodium Chloride 1,000 ml @ 125 mls/hr Q8H IV Last administered on 07/26/17 08:40; Start 07/26/17 at 08:14; Stop 07/26/17 at 16:13; Status DC Etomidate (Amidate Inj) 20 mg ONCE ONCE IVP Last administered on 07/26/17 09 :03; Start 07/26/17 at 09:00; Stop 07/26/17 at 09:02; Status DC Succinylcholine Chloride (Quelicin Inj) 100 mg ONCE ONCE IV PUSH Last administered on 07/26/17 09:03; Start 07/26/17 at 09:00; Stop 07/26/17 at 09 :02; Status DC Propofol 100 ml @ 1.8 mls/hr TITRATE PRN IV Ordered RASS Last administered on 07/27/17 11:49; Start 07/26/17 at 09:00; Stop 07/28/17 at 10:34; Status DC Piperacillin Sod/ Tazobactam Sod 100 ml @ 200 mls/hr ONCE STAT IV Last administered on 07/26/17 09:56; Start 07/26/17 at 08:58; Stop 07/26/17 at 09 :27; Status DC Azithromycin 500 mg/Sodium Chloride 250 ml @ 250 mls/hr ONCE STAT IV Last administered on 07/26/17 10:42; Start 07/26/17 at 08:58; Stop 07/26/17 at 09 :57; Status DC Pharmacy Profile Note 0 ml @ 0 mls/hr UNSCH OTHER ; Start 07/26/17 at 10:00; Stop 07/28/17 at 10:34; Status DC Vancomycin HCl 1200 mg/Sodium Chloride 262 ml @ 250 mls/hr ONCE ONCE IV ; Start 07/26/17 at 10:00; Stop 07/26/17 at 11:02; Status UNV Albuterol/ Ipratropium (Duoneb Neb) 1 ampule Q6HR NEB INH Last administered on 07/29/17 09:15; Start 07/26/17 at 11:00; Stop 07/29/17 at 14:08; Status DC Albuterol/ Ipratropium (Duoneb Neb) 1 ampule Q2HR NEB PRN INH WHEEZING Last administered on 08/05/17 00:57; Start 07/26/17 at 10:00 Dextrose (D50w (Vial) Inj) 25 ml UNSCH PRN IV PUSH HYPOGLYCEMIA-SEE COMMENTS Last administered on 07/31/17 00:31; Start 07/26/17 at 10:00 Insulin Human Regular (NovoLIN R SUPPLEMENTAL SCALE) 1 Q6HR SQ Last administered on 07/31/17 18:00; Start 07/26/17 at 12:00 Chlorhexidine Gluconate (Peridex 0.12% Liq) 15 ml BID@08,20 MT Last administered on 08/01/17 09:02; Start 07/26/17 at 20:00; Stop 08/01/17 at 20: 33; Status DC Magnesium Oxide (Mag-Ox) 800 mg UNSCH PRN PO For Magnesium 1.2 - 1.6 mg/dL; Start 07/26/17 at 10:00; Stop 07/26/17 at 13:31; Status DC Magnesium Sulfate 4 gm/Sodium Chloride 100 ml @ 50 mls/hr UNSCH PRN IV For Magnesium 0.9 - 1.1 mg/dL; Start 07/26/17 at 10:00; Stop 07/26/17 at 13:31; Status DC Magnesium Sulfate 2 gm/Sodium Chloride 100 ml @ 50 mls/hr UNSCH PRN IV For Magnesium 1.2 - 1.6 mg/dL; Start 07/26/17 at 10:00; Stop 07/26/17 at 13:31; Status DC Potassium Chloride 100 ml @ 50 mls/hr Q2H PRN IV For Potassium 2.8 - 3.2 mEq/L ; Start 07/26/17 at 10:00; Stop 07/26/17 at 13:31; Status DC Potassium Chloride 100 ml @ 50 mls/hr Q2H PRN IV For Potassium 3.3 - 3.5 mEq/L ; Start 07/26/17 at 10:00; Stop 07/26/17 at 13:31; Status DC Potassium Chloride 100 ml @ 50 mls/hr Q2H PRN IV For Potassium 2.8 - 3.2 mEq/L ; Start 07/26/17 at 10:00; Stop 07/26/17 at 13:31; Status DC Potassium Chloride 100 ml @ 25 mls/hr UNSCH PRN IV For Potassium 3.3 - 3.5 mEq /L; Start 07/26/17 at 10:00; Stop 07/26/17 at 13:31; Status DC Potassium Phosphate (K-Phos) 2,000 mg Q4H PRN PO For Phosphorus < 2.5 mg/dL; Start 07/26/17 at 10:00; Stop 07/26/17 at 13:31; Status DC Potassium Phosphate (K-Phos) 2,000 mg UNSCH PRN PO/TUBE SEE LABEL COMMENTS; Start 07/26/17 at 10:00; Stop 07/26/17 at 13:31; Status DC Potassium Phosphate 30 mmol/ Sodium Chloride 260 ml @ 42 mls/hr UNSCH PRN IV SEE LABEL COMMENTS; Start 07/26/17 at 10:00; Stop 07/26/17 at 13:31; Status DC Sodium Phosphate 30 mmol/Sodium Chloride 250 ml @ 42 mls/hr UNSCH PRN IV For Phosphorus < 2.5 mg/dL; Start 07/26/17 at 10:00; Stop 07/26/17 at 13:31; Status DC Fentanyl Citrate 250 ml @ 5 mls/hr TITRATE PRN IV SEDATION; Start 07/26/17 at 11:00; Stop 07/28/17 at 10:34; Status DC Acetaminophen (Tylenol) 650 mg Q6H PRN PO PAIN 1-10 AND/OR FEVER >101F Last administered on 08/01/17t 05:07; Start 07/26/17 at 11:00 Famotidine (Pepcid Inj) 10 mg Q12HR IV PUSH Last administered on 07/28/17 09: 24; Start 07/26/17 at 21:00; Stop 07/28/17 at 10:34; Status DC Ondansetron HCl (Zofran Inj) 4 mg Q6H PRN IV PUSH NAUSEA OR VOMITING Last administered on 08/04/17 09:46; Start 07/26/17 at 11:00 Heparin Sodium (Porcine) (Heparin Inj) 5,000 units Q8H SQ Last administered on 08/06/17 04:27; Start 07/26/17 at 12:00 Miscellaneous Information 1 [id number] XX Last administered on 07/26/17 13:33; Start 07/26/17 at 10:00 Chlorhexidine Gluconate (Chlorhexidine 2% Cloth) Taper DAILY@04 TOP Last administered on 08/02/17 04:00; Start 07/27/17 at 04:00; Stop 07/23/18 at 03: 59 Chlorhexidine Gluconate (Chlorhexidine 2% Cloth) 3 pack UNSCH PRN TOP HYGIENIC CARE; Start 07/26/17 at 10:00 Senna/Docusate Sodium (Hedy-Colace) 1 tab BID PO Last administered on 20:27; Start 07/26/17 at 21:00 Magnesium Hydroxide (Milk Of Magnesia Liq) 30 ml Q12H PRN PO Mild constipation ; Start 07/26/17 at 10:00 Sennosides (Senokot) 17.2 mg Q12H PRN PO Moderate constipation; Start at 10:00 Bisacodyl (Dulcolax Supp) 10 mg DAILY PRN RECTAL SEVERE CONSITIPATION; Start 07/26/17 at 10:00 Lactulose (Lactulose Liq) 30 ml DAILY PRN PO SEVERE CONSITIPATION; Start 07/26 at 10:00 Piperacillin Sod/ Tazobactam Sod 50 ml @ 100 mls/hr Q8H IV Last administered on 07/27/17 09:25; Start 07/26/17 at 18:00; Stop 07/27/17 at 15:45; Status DC Azithromycin 500 mg/Sodium Chloride 250 ml @ 250 mls/hr Q24H IV ; Start at 10:00; Stop 07/27/17 at 10:00; Status DC Vancomycin HCl 1000 mg/Sodium Chloride 250 ml @ 250 mls/hr Q24H IV Last administered on 07/28/17 09:22; Start 07/26/17 at 11:00; Stop 07/28/17 at 10: 34; Status DC Miscellaneous Information SPECIFIC LAB TO BE DRAWN:vancomy... ONCE ONCE .XX ; Start 07/29/17 at 10:45; Stop 07/29/17 at 10:46; Status Cancel Midazolam HCl (Versed Inj) 5 mg STK-MED ONCE .ROUTE ; Start 07/26/17 at 10:54; Stop 07/26/17 at 10:55; Status DC Midazolam HCl (Versed Inj) 2.5 mg ONCE ONCE IV PUSH Last administered on 07/26 11:00; Start 07/26/17 at 11:00; Stop 07/26/17 at 11:01; Status DC Atropine Sulfate (Atropine Inj) 1 mg STK-MED ONCE .ROUTE ; Start 07/26/17 at 12 :03; Stop 07/26/17 at 12:04; Status DC Calcium Chloride (Calcium Chloride Inj) 2 gm STK-MED ONCE .ROUTE ; Start at 12:06; Stop 07/26/17 at 12:07; Status DC Epinephrine HCl (EPINEPHrine (1:10,000) INJ) 1 mg STK-MED ONCE .ROUTE ; Start 07/26/17 at 12:06; Stop 07/26/17 at 12:07; Status DC Methylprednisolone Sodium Succinate (SoluMEDROL INJ) 60 mg Q12HR IV PUSH Last administered on 07/29/17 07:47; Start 07/26/17 at 13:15; Stop 07/29/17 at 18: 08; Status DC Aspirin (Ecotrin Ec) 81 mg DAILY PO Last administered on 08/05/17 08:55; Start 07/26/17 at 13:15 Sodium Chloride 1,000 ml @ 999 mls/hr Q1H1M IV Last administered on 13:35; Start 07/26/17 at 13:00; Stop 07/26/17 at 16:00; Status DC Potassium Chloride 100 ml @ 50 mls/hr Q2H PRN IV For Potassium 2.8 - 3.2 mEq/L ; Start 07/26/17 at 13:30; Stop 08/02/17 at 16:34; Status DC Potassium Chloride 100 ml @ 50 mls/hr Q2H PRN IV For Potassium 2.8 - 3.2 mEq/L ; Start 07/26/17 at 13:30; Stop 08/02/17 at 16:34; Status DC Potassium Bicarb/ Potassium Chloride (K-Lyte Cl Eff) 50 meq UNSCH PRN PO For Potassium 3.3 - 3.5 mEq/L; Start 07/26/17 at 13:30 Potassium Chloride 100 ml @ 25 mls/hr UNSCH PRN IV For Potassium 3.3 - 3.5 mEq /L; Start 07/26/17 at 13:30; Stop 08/02/17 at 16:34; Status DC Potassium Chloride 100 ml @ 50 mls/hr Q2H PRN IV For Potassium 3.3 - 3.5 mEq/L ; Start 07/26/17 at 13:30; Stop 08/02/17 at 16:34; Status DC Magnesium Sulfate 4 gm/Sodium Chloride 100 ml @ 50 mls/hr UNSCH PRN IV For Magnesium 0.9 - 1.1 mg/dL; Start 07/26/17 at 13:30; Stop 08/02/17 at 16:34; Status DC Magnesium Oxide (Mag-Ox) 800 mg UNSCH PRN PO For Magnesium 1.2 - 1.6 mg/dL; Start 07/26/17 at 13:30 Magnesium Sulfate 2 gm/Sodium Chloride 100 ml @ 50 mls/hr UNSCH PRN IV For Magnesium 1.2 - 1.6 mg/dL; Start 07/26/17 at 13:30; Stop 08/02/17 at 16:34; Status DC Potassium Phosphate (K-Phos) 2,000 mg Q4H PRN PO For Phosphorus < 2.5 mg/dL; Start 07/26/17 at 13:30 Sodium Phosphate 30 mmol/Sodium Chloride 250 ml @ 42 mls/hr UNSCH PRN IV For Phosphorus < 2.5 mg/dL; Start 07/26/17 at 13:30; Stop 08/02/17 at 16:34; Status DC Potassium Phosphate (K-Phos) 2,000 mg UNSCH PRN PO/TUBE SEE LABEL COMMENTS; Start 07/26/17 at 13:30 Potassium Phosphate 30 mmol/ Sodium Chloride 260 ml @ 42 mls/hr UNSCH PRN IV SEE LABEL COMMENTS; Start 07/26/17 at 13:30; Stop 08/02/17 at 16:34; Status DC Vasopressin 40 units/Dextrose 100 ml @ 1.5 mls/hr Q24H IV ; Start 07/26/17 at 14:14 Sodium Bicarbonate (Sodium Bicarbonate 8.4% Inj) 50 meq STK-MED ONCE IV ; Start 07/26/17 at 05:00; Stop 07/26/17 at 16:22; Status DC Sodium Chloride 1,000 ml @ 0 mls/hr BOLUS ONCE IV Last administered on 17:45; Start 07/26/17 at 17:45; Stop 07/26/17 at 17:46; Status DC Norepinephrine Bitartrate 250 ml @ 7.5 mls/hr TITRATE PRN IV Maintain MAP > 65 mmHg; Start 07/26/17 at 17:45; Stop 07/28/17 at 10:34; Status DC Dexmedetomidine HCl 200 mcg/ Sodium Chloride 52 ml @ 3.35 mls/hr TITRATE PRN IV SEDATION; Start 07/27/17 at 13:45; Stop 07/27/17 at 15:35; Status DC Budesonide (Pulmicort Respule Neb) 0.5 mg Q12HR NEB NEB Last administered on 07/29/17 09:15; Start 07/27/17 at 14:00; Stop 07/29/17 at 14:09; Status DC Dexmedetomidine HCl 1000 mcg/ Sodium Chloride 250 ml @ 3.22 mls/hr TITRATE PRN IV SEDATION Last administered on 07/28/17 07:47; Start 07/27/17 at 15:45; Stop 07/28/17 at 10:34; Status DC Piperacillin Sod/ Tazobactam Sod 50 ml @ 100 mls/hr Q6H IV Last administered on 08/03/17 16:50; Start 07/27/17 at 16:00; Stop 08/03/17 at 19:17; Status DC Famotidine (Pepcid) 20 mg BID PO Last administered on 08/03/17 09:04; Start 07/28/17 at 21:00; Stop 08/03/17 at 15:45; Status DC Haloperidol Lactate (Haldol Inj) 2 mg Q4H PRN IV agitation Last administered on 08/02/17 05:08; Start 07/28/17 at 15:00; Stop 08/02/17 at 16:34; Status DC Dexmedetomidine HCl 200 mcg/ Sodium Chloride 52 ml @ 3.38 mls/hr TITRATE PRN IV SEDATION Last administered on 07/29/17 12:03; Start 07/28/17 at 17:15; Stop 07/29/17 at 14:09; Status DC Lorazepam (Ativan Inj) 1 mg Q2H PRN IV PUSH agitation Last administered on 08/02 05:00; Start 07/28/17 at 17:30; Stop 08/02/17 at 12:51; Status DC Lorazepam (Ativan Inj) 1 mg ONCE ONCE IV PUSH ; Start 07/28/17 at 17:45; Stop 07/28/17 at 17:46; Status DC Albuterol/ Ipratropium (Duoneb Neb) 1 ampule Q6HR NEB INH Last administered on 08/02/17 14:49; Start 07/29/17 at 16:00; Stop 08/02/17 at 15:59; Status DC Tiotropium Patterson (Spiriva Inh) 18 mcg DAILY INH Last administered on 09:38; Start 07/29/17 at 15:00 Budesonide/ Formoterol Fumarate (Symbicort 160-4.5 Inh) 1 puff Q12HR INH Last administered on 08/05/17 20:28; Start 07/29/17 at 15:00 Alprazolam (Xanax) 0.5 mg Q8H PRN PO ANXIETY Last administered on 07/29/17 14: 35; Start 07/29/17 at 14:30; Stop 08/02/17 at 16:34; Status DC Donepezil HCl (Aricept) 10 mg HS PO Last administered on 08/05/17 20:27; Start 07/29/17 at 21:00 Sertraline HCl (Zoloft) 25 mg DAILY PO Last administered on 08/05/17 08:54; Start 07/29/17 at 14:30 Methylprednisolone Sodium Succinate (SoluMEDROL INJ) 40 mg Q12HR IV PUSH Last administered on 08/02/17 09:22; Start 07/29/17 at 21:00; Stop 08/02/17 at 12:55 ; Status DC Guaifenesin (Mucinex Er) 600 mg BID PO Last administered on 08/05/17 20:28; Start 07/30/17 at 09:00 Haloperidol Lactate (Haldol Inj) 1 mg ONCE ONCE IV Last administered on 10:00; Start 07/30/17 at 10:00; Stop 07/30/17 at 10:09; Status DC Hydralazine HCl (Apresoline Inj) 10 mg Q6H PRN IV PUSH SEE LABEL COMMENTS Last administered on 07/31/17 09:13; Start 07/30/17 at 23:00 Heparin Sodium (Porcine) (Heparin Inj) 5,000 units ONCE ONCE IV PUSH ; Start 07/31/17 at 09:30; Stop 07/31/17 at 09:30; Status DC Heparin Sodium/ Dextrose 250 ml @ 11.448 mls/ hr TITRATE PRN IV Coagulation Management; Start 07/31/17 at 09:30; Stop 07/31/17 at 09:30; Status DC Sodium Chloride 1,000 ml @ 9,999 mls/hr Q6M IV Last administered on 07/31/17 21:50; Start 07/31/17 at 20:00; Stop 07/31/17 at 20:11; Status DC Furosemide (Lasix) 20 mg DAILY PO Last administered on 08/05/17 08:54; Start 08/02/17 at 09:00; Stop 08/05/17 at 10:46; Status DC Potassium Chloride (KCl) 10 meq Q12HR PO Last administered on 08/05/17 20:27; Start 08/01/17 at 21:00 Metoprolol Tartrate (Lopressor Inj) 2.5 mg ONCE ONCE IV PUSH Last administered on 08/02/17 01:05; Start 08/02/17 at 00:45; Stop 08/02/17 at 00:46 ; Status DC Quetiapine Fumarate (SEROquel) 25 mg BID@09,12 PO Last administered on 11:57; Start 08/03/17 at 09:00 Prednisone (Deltasone) 10 mg BID PO Last administered on 08/05/17 20:27; Start 08/02/17 at 21:00; Stop 08/07/17 at 20:59 Amoxicillin/ Clavulanate Potassium (Augmentin 600 Mg/5 ml Liq) 600 mg Q12HR PO Last administered on 08/05/17 20:27; Start 08/03/17 at 21:00 Furosemide (Lasix Inj) 20 mg BID@09,18 IV PUSH Last administered on 08/05/17 17:23; Start 08/05/17 at 10:45 A/P Problem List: (1) Acute hypercapnic respiratory failure ICD Code: J96.02 - Acute respiratory failure with hypercapnia (2) Septic shock ICD Code: A41.9 - Sepsis, unspecified organism; R65.21 - Severe sepsis with septic shock (3) HCAP (healthcare-associated pneumonia) ICD Code: J18.9 - Pneumonia, unspecified organism (4) Urinary tract infection ICD Code: N39.0 - Urinary tract infection, site not specified Status: Acute (5) Acute kidney injury ICD Code: N17.9 - Acute kidney failure, unspecified Status: Acute (6) Hyperglycemia ICD Code: R73.9 - Hyperglycemia, unspecified Status: Acute (7) Hypothermia ICD Code: T68.XXXA - Hypothermia, initial encounter Status: Acute (8) Acute encephalopathy ICD Code: G93.40 - Encephalopathy, unspecified Assessment and Plan A/P 1. Acute Metabolic Encephalopathy/CO2 Narcosis/Dementia by history- continue Sertraline and Aricept. 2. Acute Hypoxemic and Hypercarbic respiratory failure/Healthcare associated Pneumonia/COPD exacerbation/Basilar Pneumonia/ pulmonary edema Bilateral Pleural Effusions. Extubated 07/28/17, continue bronchodilator, Mucolytic and incentive spirometry/discontinued Solu-Medrol and started on Prednisone switched to po Augmentin- switched to IV lasix- echo pending- 3. Septic Shock resolved/Severe Bradycardia/lactic acidosis- resolved. 4. Acute Kidney Injury Resolved - 5. diarrhea- resolved. PT consulted. PROPH: - Bilateral lower extremity SCDs. Subcutaneous heparin. Discharge Planning previously d/w the legal guardian; awaiting the court decision on code status. Problem Qualifiers (1) Urinary tract infection: (2) Hypothermia: Qualified Codes: T68.XXXA - Hypothermia, initial encounter Minouei,Mohammadreza MD Aug 06, 2017 09:04
--- NOTE | 2017-08-06 09:06 | HHI.PR ---
Addendum To [facility] Progress Not Reason for addendum: Additonal documentation (patient became unresponsive shortly after my visit. patient with worsening respiratory distress. patient was seen with at the bedside. placed on oxygen mask- will obtain stat CT head , ABG and EKG along with CMP and troponin. patient will be transferred to ICU with critical care consult.) Dorothy Constantino MD Aug 06, 2017 09:06
--- NOTE | 2017-08-06 09:31 | RADRPT ---
EXAM DATE/TIME: 08/06/2017 09:19 [facility] COMPARISON: CT BRAIN W/O CONTRAST, July 26, 2017, 9:14. INDICATIONS : Altered mental status, post code. RADIATION DOSE: 34.29 CTDIvol (mGy) MEDICAL HISTORY : Cardiovascular disease. Chronic obstructive pulmonary disease. Hypertension.Dementia. SURGICAL HISTORY : None. ENCOUNTER: Initial ACUITY: 1 day PAIN SCALE: Non-responsive LOCATION: cranial TECHNIQUE: Multiple contiguous axial images were obtained of the head. Using automated exposure control and adj ustment of the mA and/or kV according to patient size, radiation dose was kept as low as reasonably a chievable to obtain optimal diagnostic quality images. DICOM format image data is available electro nically for review and comparison. FINDINGS: CEREBRUM: Moderate periventricular white matter hypodensities. Mild cerebral atrophy. The ventricles are normal for age. Probable small lacunar infarct in the left thalamus. No evidence of midline shift, mass les ion, hemorrhage or acute infarction. No extra-axial fluid collections are seen. POSTERIOR FOSSA: The cerebellum and brainstem are intact. The 4th ventricle is midline. The cerebellopontine angle i s unremarkable. EXTRACRANIAL: The visualized portion of the orbits is intact. SKULL: The calvaria is intact. No evidence of skull fracture. CONCLUSION: 1. Senescent changes with moderate periventricular small vessel ischemic white matter demyelination. 2. No acute intracranial abnormality or significant interval change. Alejandro Bergman MD on August 06, 2017 at 9:27 Board Certified Radiologist. This report was verified electronically.
[2017-08-06 09:43] LABS: BLOOD GAS BASE EXCESS 17.4 mmol/L (-2-2); BLOOD GAS CARBOXYHEMOGLOBIN 1.3 % (0-4); BLOOD GAS HCO3 43 mmol/L (22-26); BLOOD GAS O2 HGB SATURATION 97 % (90-100); BLOOD GAS OXYGEN CONTENT 18.1 Vol % (12.0-20.0); BLOOD GAS PCO2 72 mmHg (38-42); BLOOD GAS PO2 254 mmHg (61-120); BLOOD GAS TOTAL HGB 12.8 G/DL (12.0-16.0); TEMP CORR TO 98.6
[2017-08-06 09:44] LABS: CRITICAL VALUE YES; DRAW SITE RT RADIAL; LITER FLOW 15 L/M; NUMBER OF ARTERIAL PUNCTURES 1; OXYGEN DEVICE NRBR; STAT YES; ULNAR PULSE PRESENT
[2017-08-06 09:54] LABS: BICARBONATE 44.4 MEQ/L (21.0-32.0)
[2017-08-06 10:01] LABS: POTASSIUM 3.6 MEQ/L (3.5-5.1)
[2017-08-06] MEDS: FUROSEMIDE 20 MG/2 ML VIAL IV PUSH SCH ×2 (10:03→17:08)
[2017-08-06] MEDS: predniSONE 10 MG TAB PO SCH ×2 (10:04→20:49)
[2017-08-06] MEDS: SERTRALINE HCL 50 MG TAB PO SCH (10:04)
[2017-08-06] MEDS: guaiFENesin E.R. 600 MG TAB PO SCH ×2 (10:04→20:49)
[2017-08-06] MEDS: ASPIRIN EC 81 MG TABEC PO SCH (10:04)
[2017-08-06] MEDS: QUEtiapine FUMARATE 25 MG TAB PO SCH ×2 (10:04→13:08)
[2017-08-06] MEDS: POTASSIUM CHLORIDE 10 MEQ CONTROLLED RELEASE TAB PO SCH ×2 (10:04→20:49)
--- NOTE | 2017-08-06 10:33 | HHI.CCPN ---
Subjective Remarks/Hospital Course All history is obtained from ED chart review. Patient is intubated sedated. Patient is a 76-year-old female history of dementia, hypertension, hyperlipidemia, coronary artery disease, COPD, who presented from the halfway with decreased level of consciousness. Paramedics found her lethargic and obtunded, hypoxemic. She was placed on NRB placed a nonrebreather and brought to the ED. In the ED patient was unresponsive, SaO2 98-99%. She was taken off the nonrebreather and placed on a nasal cannula. ABG- pH of 7.041. PCO2 was 122 and PO2 was 94.5. Temp was 91.8 and Patient was placed on warming blanket, warm IVD fluids were initiated. She was intubated for severe hypercapnic respiratory failure. Her urinalysis shows evidence of a UTI and her chest x-ray shows probable pneumonia. Received Zosyn and azithromycin. Lactate was 5.6. [facility] requested to admit I evaluated the patent immediately in ICU. Patient was severely bradycardic, HR in mid 20s and blood pressure was not recordable, but had palpable pulse. No response to atropine. I ordered 0.5 mg epinephrine, IVF 3L boluses and Levophed started. Patients BP improved with above measures and I placed an emergent L subclavian central line. Her home medications and hypercapnic resp failure indicated COPD exacerbation in addition to septic shock. I have started IV steroids and will continue Vanc and Zosyn, scheduled and PRN DuoNeb. Also Minute ventilation adjusted to correct hypercapnia and severe acidosis SUBJ: Patient remains intubated sedated. On sedation hold and attended CPAP became very tachypneic and agitated, repeatedly placed back on ACV mechanical ventilation. FiO2 at 45%. Off Lveophed 07/28: Clinically improved. Following commands, tolerated CPAP on Precedex. We' ll get weaning parameters and possible extubation. Remains on Precedex. Urine output adequate 07/29: Extubated yesterday tolerated well respiratory ha. Had anxiety and agitation yesterday and started on Precedex currently on 0.3 mics per kg per hour. Following commands oriented to person and place 08/06: Responded to CODE BLUE cardiac arrest code activation on the floor. Patient became unresponsive while being turned with altered mental status. She was ventilated with bagging. She did not lose her pulse. There was a question of involuntary movements/jerking for a few seconds which stopped spontaneously. Fingerstick glucose checked was 106. When I came to evaluate patient she was being ventilated with bag mask ventilation. She did have spontaneous respirations. Her O2 sats at the time were in the mid 90s blood pressure 170s by 90s heart rate 130s. Patient was grimacing to deep sternal rub and weakly withdrew both upper extremities and lower extremity to painful stimuli. She was given Cardizem 20 mg IV with which the heart rate came down to the 70s and blood pressure 130s by 70s. Patient was emergently transported for head CT which was negative for bleed and subsequently transferred to the ICU. I accompanied the patient from the floor to the ICU. Discussed with Dr. Tyson who ordered a critical care consult. Patient was reportedly at her baseline about 30 minutes prior. She does have dementia at baseline and is awake alert oriented [address] baseline. Following head CT her neurologic status started improving and she started moaning and trying to get out of bed. History was obtained by reviewing records and discussion with nursing staff and Dr. Tyson. Objective Vital Signs Date Time Temp Pulse Resp B/P (MAP) Pulse Ox O2 Delivery O2 Flow Rate FiO2 08/06/17 09:47 90 Nasal Cannula 2.00 08/06/17 08:00 99.0 83 18 163/83 (109) 08/04/17 08:00 35 Intake and Output 08/06/17 08/06/17 08/07/17 08:00 16:00 00:00 Intake Total 240 ml Balance 240 ml Result Diagram: 08/06/17 0755 08/06/17 0755 Other Results Laboratory Tests Test 08/06/17 07:55 08/06/17 09:00 White Blood Count 13.3 TH/MM3 Red Blood Count 4.29 MIL/MM3 Hemoglobin 12.7 GM/DL Hematocrit 40.4 % Mean Corpuscular Volume 94.1 FL Mean Corpuscular Hemoglobin 29.7 PG Mean Corpuscular Hemoglobin Concent 31.6 % Red Cell Distribution Width 14.9 % Platelet Count 292 TH/MM3 Mean Platelet Volume 8.8 FL Blood Urea Nitrogen 11 MG/DL Creatinine 0.70 MG/DL Random Glucose 76 MG/DL Calcium Level 9.4 MG/DL Sodium Level 139 MEQ/L Potassium Level 3.6 MEQ/L Chloride Level 89 MEQ/L Carbon Dioxide Level 44.4 MEQ/L Anion Gap 6 MEQ/L Estimat Glomerular Filtration Rate 81 ML/MIN Blood Gas Puncture Site RT RADIAL Blood Gas Patient Temperature 98.6 Blood Gas HCO3 43 mmol/L Blood Gas Base Excess 17.4 mmol/L Blood Gas Oxygen Saturation 97 % Arterial Blood pH 7.40 Arterial Blood Partial Pressure CO2 72 mmHg Arterial Blood Partial Pressure O2 254 mmHg Arterial Blood Oxygen Content 18.1 Vol % Arterial Blood Carboxyhemoglobin 1.3 % Arterial Blood Methemoglobin 1.0 % Blood Gas Hemoglobin 12.8 G/DL Oxygen Delivery Device NRBR Blood Gas Liter Flow 15 L/M Imaging CXR bilateral patchy infiltrates Objective Remarks GENERAL: Well-developed well-nourished patient on NC SKIN: Dry. HEAD: Atraumatic. Normocephalic. EYES: No scleral icterus. No injection or drainage. ENT: Mucous membranes dry. NECK: Trachea midline. Supple. CARDIOVASCULAR: Regular rate and rhythm. No murmur appreciated. RESPIRATORY: Breath sounds equal bilaterally. Scattered rhonchi bilaterally, no wheezing GASTROINTESTINAL: Abdomen soft, non-tender, nondistended. Hepatic and splenic margins not palpable. MUSCULOSKELETAL: No obvious deformities. No clubbing. No cyanosis. No edema. NEUROLOGICAL: Awake and alert, and not following commands. Shouting 'help' Moves all 4 extremities. Grossly nonfocal Procedures central line placement. A/P Assessment and Plan NEURO: Acute metabolic encephalopathy/CO2 narcosis History of dementia -Continue Seroquel. Did not tolerate Ativan previously - Continue home medications of Aricept, sertraline and when necessary Xanax RESP: Acute hypoxemic and hypercarbic respiratory failure Healthcare associated pneumonia Acute COPD exacerbation - Extubated 07/28/17 tolerating well - DuoNeb every 6 hours and when necessary, Spiriva, Symbicort started -Steroid tapered, currently on by mouth prednisone. ABG revealed pH 7.39, PCO2 71, pO2 254 on nonrebreather facemask. O2 titrated down to nasal cannula - Broad-spectrum antibiotics with Zosyn - Pulmonology following for COPD CV: Septic shock-resolved Severe bradycardia-resolved Lactic acidosis - On admission Patient required epinephrine and atropine push for severe bradycardia and hypotension - Remains off all pressors. Currently on Lasix twice a day GI: -Was tolerating by mouth diet. : Acute kidney injury-resolved -Follow intake output, monitor and replete electrolytes, follow BUN/creatinine. ID: Septic shock Healthcare associated pneumonia UTI-with lactobacillus -Switched from Zosyn to Augmentin HEME: - Monitor CBC, CMP, coags ENDO: Hyperglycemia - Sliding-scale insulin, HbA1c 6.1 - Electrolyte Replacement per protocol PROPH: - Bilateral lower extremity SCDs. Subcutaneous heparin, IV famotidine-change to po LINES: - Right subclavian central line placed 07/26/17-DCd Follow-up CMP troponin lactic acid which have been ordered. Chest x-ray pending. We will review when available. Palliative care following to assist with deciding goals of therapy. Patient remains full CODE STATUS at this time pending review by Labor Contract Analyst. Patient will be followed by critical care team. Steven Mittal MD Aug 06, 2017 10:33
--- NOTE | 2017-08-06 11:16 | RADRPT ---
EXAM DATE/TIME: 08/06/2017 10:44 [place] COMPARISON: CHEST SINGLE AP, August 06, 2017, 6:52. INDICATIONS : Evaluate for infiltrates. MEDICAL HISTORY : Hypertension. Cardiovascular disease. SURGICAL HISTORY : None. ENCOUNTER: Subsequent ACUITY: 1 day PAIN SCORE: Non-responsive. LOCATION: Bilateral chest FINDINGS: Portable AP view of the chest demonstrates cardiac silhouette size at the upper limits for normal wit h calcification of the aorta. There is a stable small right basilar pleural-parenchymal opacity and a smaller left basilar opacity. No pneumothorax is identified. CONCLUSION: Stable chest x-ray with bibasilar opacity, right greater than left, likely representing pleural effus ions with associated volume loss and/or airspace consolidation. Abebe Guzman MD on August 06, 2017 at 11:14 Board Certified Radiologist. This report was verified electronically.
[2017-08-06] MEDS ORDERED: ADENOSINE IV SOLN 3 MG/ML 2 ML VIAL IV PUSH ONE (12:03)
[2017-08-06] MEDS: hydrALAZINE HCL 20 MG/ML VIAL IV PUSH PRN ×2 (13:09→21:03)
[2017-08-06 14:18] LABS: ALT (GPT) 35 U/L (10-53); AST (GOT) 24 U/L (15-37); BLOOD UREA NITROGEN 11 MG/DL (7-18); CHLORIDE 88 MEQ/L (98-107); GLOMERULAR FILTRATION RATE 75 ML/MIN (>89); POTASSIUM 3.9 MEQ/L (3.5-5.1); SODIUM (NA) 140 MEQ/L (136-145)
[2017-08-06 14:22] LABS: ALKALINE PHOSPHATASE 76 U/L (45-117); TOTAL BILIRUBIN ADULT 0.8 MG/DL (0.2-1.0)
[2017-08-06 14:24] LABS: ANION GAP 7 MEQ/L (5-15); BICARBONATE GREATER THAN 45.0 MEQ/L (21.0-32.0)
[2017-08-06] MEDS ORDERED: DILTIAZEM HCL 25 MG/5 ML VIAL IV ONE ×2 (14:30→17:15)
[2017-08-06] MEDS ORDERED: DILTIAZEM-CD 180 MG CAP ER PO ONE (14:30)
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
[2017-08-06] MEDS ORDERED: FUROSEMIDE 20 MG/2 ML VIAL IV PUSH ONE (17:15)
[2017-08-06] MEDS ORDERED: FOSPHENYTOIN INJ 1,000 MGPE in SODIUM CHLORIDE 0.9% INJ 50 ML IV ONE (18:00)
--- NOTE | 2017-08-06 19:32 | HHI.PR ---
Subjective Remarks In ICU for possible seizure. Now on o2 4 L. Not in respiratory distress. Now seems better but confused. Confused. Objective Vital Signs Date Time Temp Pulse Resp B/P (MAP) Pulse Ox O2 Delivery O2 Flow Rate FiO2 08/06/17 18:00 85 08/06/17 16:00 98.2 116 22 125/58 (80) 90 08/06/17 16:00 116 08/06/17 14:00 130 08/06/17 12:00 98.2 96 20 176/79 (111) 91 08/06/17 12:00 96 08/06/17 10:00 81 08/06/17 10:00 98.2 81 22 173/74 (107) 08/06/17 10:00 Nasal Cannula 2.00 91 08/06/17 09:47 90 Nasal Cannula 2.00 08/06/17 08:00 99.0 83 18 163/83 (109) 93 08/06/17 04:46 Nasal Cannula 4.00 Humidified 08/06/17 04:00 98.1 80 20 149/76 (100) 95 08/06/17 00:16 Nasal Cannula 4.00 08/06/17 00:00 97.7 81 20 157/72 (100) 96 08/05/17 21:32 Nasal Cannula 3.00 08/05/17 20:00 79 08/05/17 20:00 98.4 80 20 133/75 (94) 97 08/05/17 20:00 Nasal Cannula 4.00 Humidified I/O 08/05/17 08/05/17 08/05/17 08/06/17 08/06/17 08/06/17 07:00 15:00 23:00 07:00 15:00 23:00 Intake Total 480 ml 600 ml 240 ml 960 ml Balance 480 ml 600 ml 240 ml 960 ml Intake Oral 480 ml 600 ml 240 ml 960 ml # Voids 3 5 5 # Bowel Movements 0 6 2 Result Diagram: 08/06/17 0755 08/06/17 1345 Procedures Endotracheal Intubation and Extubation Objective Remarks GENERAL: This averagely built elderly lady is in bed, pale and in no distress SKIN: Turgor is good.No lesions. HEENT: Head normocephalic. Pupils are reactive. Sclerae are clear. Tongue was dry. Throat clear. Nasal mucosa is clear. Ears - No inflammation. NECK: Supple. No bruits or thyroid enlargement. CHEST: Decreased breath sounds at the bases with occ basilar crackles. Occasional wheezes in the upper chest. HEART SOUNDS: Irregular S1 and S2. No murmur. No S3. ABDOMEN: Soft, protuberant. No mass. No organomegaly. EXTREMITIES: Decreased pulses with reflexes 1+ and the patient does move her extremities with no gross motor deficits.No edema. Assessment and Plan Assessment and Plan IMPRESSION 1. Hypoxemic, hypercapnic respiratory failure, resolved. 2. COPD with chronic bronchitis and emphysema with acute exacerbation. 3. Basilar pneumonia. 4. Metabolic encephalopathy. 5. Dementia. 6. Severe sepsis and lactic acidosis.Resolved 7. Acute kidney injury.Resolved 8. Pleural effusions. Plan : 1. IS at bedside q3h 2. Continue Duoneb nebs qid. 3. CXR ,BMP in am 4. O2 at 3 L N/C 5. PT Evaluation . 6. Cont lasix 20 mg IV BID 7. CBC ,CXR in am. 8. Cont Seroquel 25 mg bid 9. Cerebyx for seizure Romina Beebe MD Aug 06, 2017 19:31
[2017-08-06] MEDS: FOSPHENYTOIN SODIUM 100 MG PE/2 ML VIAL IV SCH (20:49)
[2017-08-06] MEDS: DONEPEZIL HCL 5 MG TAB PO SCH (20:49)
[2017-08-07] VITALS (20 sets, daily range): BP systolic 78–142; BP diastolic 44–66; PULSE 77–103; RESP 16–30; TEMP 98–99.3; O2SAT 94–100
[2017-08-07] MEDS: CHLORHEXIDINE GLUCONATE 2 % 1 PACK (2 CLOTHS) TOP SCH (04:00)
[2017-08-07] MEDS: INSULIN NovoLIN REGULAR SUPPLEMENTAL SCALE SQ SCH ×3 (06:00→17:58)
[2017-08-07] MEDS: HEPARIN SODIUM - SQ 10,000 UNITS/ML VIAL SQ SCH ×3 (06:42→21:28)
--- NOTE | 2017-08-07 07:54 | ECHRPT ---
Indication: heart failure CONCLUSIONS The left ventricular systolic function is hyperdynamic with an estimated ejection fraction in the ra nge of 65- 70%. Normal left ventricular size. Wall thickness is normal. Trace mitral valve regurgitation. No aortic valve regurgitation. Aortic valve mean gradient is 7 mmHg. Aortic valve area is 2.2 cm. There is mild tricuspid valve regurgitation. The estimated pulmonary arterial pressure is 51 mmHg. BP: 127 / 70 HR: Rhythm: Sinus MEASUREMENTS (Male / Female) Normal Values Technical Quality:Good 2D ECHO LV Diastolic Diameter PLAX 3.3 cm 4.2 - 5.9 / 3.9 - 5.3 cm LV Systolic Diameter PLAX 2.2 cm IVS Diastolic Thickness 1.0 cm 0.6 - 1.0 / 0.6 - 0.9 cm LVPW Diastolic Thickness 1.0 cm 0.6 - 1.0 / 0.6 - 0.9 cm LV Relative Wall Thickness 0.6 RV Internal Dim ED PLAX 3.3 cm LVOT Diameter 2.1 cm Aortic Root Diameter 3.0 cm LA Systolic Diameter LX 3.9 cm 3.0 - 4.0 / 2.7 - 3.8 cm M-MODE AV Cusp Separation MM 1.8 cm DOPPLER AV Peak Velocity 170.0 cm/s AV Peak Gradient 11.6 mmHg AV Mean Gradient 7.0 mmHg AV Velocity Time Integral 23.5 cm LVOT Peak Velocity 101.0 cm/s LVOT Peak Gradient 4.1 mmHg LVOT Velocity Time Integral 14.8 cm AV Area Cont Eq vti 2.2 cm AV Area Cont Eq pk 2.1 cm Mitral E Point Velocity 39.8 cm/s Mitral A Point Velocity 84.4 cm/s Mitral E to A Ratio 0.5 LV E' Septal Velocity 5.1 cm/s Mitral E to LV E' Septal Ratio 7.9 TR Peak Velocity 320.0 cm/s TR Peak Gradient 41.0 mmHg Right Atrial Pressure 10.0 mmHg Pulmonary Artery Systolic Pressu 51.0 mmHg Right Ventricular Systolic Press 51.0 mmHg FINDINGS LEFT VENTRICLE The left ventricular systolic function is hyperdynamic with an estimated ejection fraction in the ra nge of 65- 70%. Normal left ventricular size. Wall thickness is normal. RIGHT VENTRICLE Normal right ventricular size and systolic function. LEFT ATRIUM The left atrial size is normal. RIGHT ATRIUM The right atrial size is normal. ATRIAL SEPTUM Normal atrial septal thickness without atrial level shunting by limited color doppler interrogation. AORTA The aortic root and proximal ascending aorta are normal in size on limited imaging. MITRAL VALVE Structurally normal mitral valve. Trace mitral valve regurgitation. AORTIC VALVE Trileaflet aortic valve. No aortic valve regurgitation. Aortic valve mean gradient is 7 mmHg. Aortic valve area is 2.2 cm. TRICUSPID VALVE Structurally normal tricuspid valve. There is mild tricuspid valve regurgitation. The estimated pulmonary arterial pressure is 51 mmHg. PULMONARY VALVE No pulmonary valve regurgitation or stenosis. VESSELS The inferior vena cava is normal in size. PERICARDIUM No pericardial effusion. Anderson Pelaez MD (Electronically Signed) Final Date:07 August 2017 07:54
[2017-08-07] MEDS ORDERED: DILTIAZEM-CD 180 MG CAP ER PO SCH (09:00)
[2017-08-07] MEDS: TIOTROPIUM BROMIDE 18 MCG INH INH SCH (09:24)
[2017-08-07] MEDS: FUROSEMIDE 20 MG/2 ML VIAL IV PUSH SCH ×2 (09:25→17:15)
[2017-08-07] MEDS: BUDESONIDE-FORMOTEROL 160/4.5 MCG INHALER INH SCH ×2 (09:25→21:29)
[2017-08-07] MEDS: FOSPHENYTOIN SODIUM 100 MG PE/2 ML VIAL IV SCH ×2 (09:26→21:27)
[2017-08-07] MEDS: AMOXICIL-CLAV 600 MG/5 ML LIQ 125 ML BTL PO SCH ×2 (09:27→21:26)
[2017-08-07] MEDS: ASPIRIN EC 81 MG TABEC PO SCH (09:28)
[2017-08-07] MEDS: QUEtiapine FUMARATE 25 MG TAB PO SCH ×2 (09:28→12:00)
[2017-08-07] MEDS: SERTRALINE HCL 50 MG TAB PO SCH (09:28)
[2017-08-07] MEDS: guaiFENesin E.R. 600 MG TAB PO SCH ×2 (09:28→21:27)
[2017-08-07] MEDS: DOCUSATE SODIUM 50 MG/SENNA 8.6 MG TAB PO SCH ×2 (09:28→21:27)
[2017-08-07] MEDS: POTASSIUM CHLORIDE 10 MEQ CONTROLLED RELEASE TAB PO SCH ×2 (09:28→21:27)
[2017-08-07] MEDS: predniSONE 10 MG TAB PO SCH (09:28)
--- NOTE | 2017-08-07 09:29 | HHI.CCPN ---
Subjective Remarks/Hospital Course All history is obtained from ED chart review. Patient is intubated sedated. Patient is a 76-year-old female history of dementia, hypertension, hyperlipidemia, coronary artery disease, COPD, [facility] of consciousness. Paramedics found her lethargic and obtunded, hypoxemic. She was placed on NRB placed a nonrebreather and brought to the ED. In the ED patient was unresponsive, SaO2 98-99%. She was taken off the nonrebreather and placed on a nasal cannula. ABG- pH of 7.041. PCO2 was 122 and PO2 was 94.5. Temp was 91.8 and Patient was placed on warming blanket, warm IVD fluids were initiated. She was intubated for severe hypercapnic respiratory failure. Her urinalysis shows evidence of a UTI and her chest x-ray shows probable pneumonia. Received Zosyn and azithromycin. Lactate was 5.6. [facility] requested to admit I evaluated the patent immediately in ICU. Patient was severely bradycardic, HR in mid 20s and blood pressure was not recordable, but had palpable pulse. No response to atropine. I ordered 0.5 mg epinephrine, IVF 3L boluses and Levophed started. Patients BP improved with above measures and I placed an emergent L subclavian central line. Her home medications and hypercapnic resp failure indicated COPD exacerbation in addition to septic shock. I have started IV steroids and will continue Vanc and Zosyn, scheduled and PRN DuoNeb. Also Minute ventilation adjusted to correct hypercapnia and severe acidosis SUBJ: Patient remains intubated sedated. On sedation hold and attended CPAP became very tachypneic and agitated, repeatedly placed back on ACV mechanical ventilation. FiO2 at 45%. Off Lveophed 07/28: Clinically improved. Following commands, tolerated CPAP on Precedex. We' ll get weaning parameters and possible extubation. Remains on Precedex. Urine output adequate 07/29: Extubated yesterday tolerated well respiratory ha. Had anxiety and agitation yesterday and started on Precedex currently on 0.3 mics per kg per hour. Following commands oriented to person and place 08/06: Responded to CODE BLUE cardiac arrest code activation on the floor. Patient became unresponsive while being turned with altered mental status. She was ventilated with bagging. She did not lose her pulse. There was a question of involuntary movements/jerking for a few seconds which stopped spontaneously. Fingerstick glucose checked was 106. When I came to evaluate patient she was being ventilated with bag mask ventilation. She did have spontaneous respirations. Her O2 sats at the time were in the mid 90s blood pressure 170s by 90s heart rate 130s. Patient was grimacing to deep sternal rub and weakly withdrew both upper extremities and lower extremity to painful stimuli. She was given Cardizem 20 mg IV with which the heart rate came down to the 70s and blood pressure 130s by 70s. Patient was emergently transported for head CT which was negative for bleed and subsequently transferred to the ICU. I accompanied the patient from the floor to the ICU. Discussed with Dr. Tyson who ordered a critical care consult. Patient was reportedly at her baseline about 30 minutes prior. She does have dementia at baseline and is awake alert oriented 1 at baseline. Following head CT her neurologic status started improving and she started moaning and trying to get out of bed. History was obtained by reviewing records and discussion with nursing staff and Dr. Tyson. 08/07: Apparently had tonic/clonic seizure activity yesterday evening. He was loaded with Cerebyx and placed on scheduled Cerebyx. Neurology consult is pending EEG pending. No further episodes of seizure. Patient is awake alert oriented to person. Code status was changed to DNR yesterday. The "code blue" yesterday possibly postictal state Objective Vital Signs Date Time Temp Pulse Resp B/P (MAP) Pulse Ox O2 Delivery O2 Flow Rate FiO2 08/07/17 08:44 96 Nasal Cannula 4.00 08/07/17 06:00 93 08/07/17 04:00 98.3 22 142/66 (91) 08/06/17 19:00 98 Intake and Output 08/07/17 08/07/17 08/08/17 08:00 16:00 00:00 Output Total 1500 ml Balance -1500 ml Result Diagram: 08/06/17 0755 08/06/17 1345 Imaging CXR bilateral patchy infiltrates Objective Remarks GENERAL: Well-developed well-nourished patient on NC SKIN: Dry. HEAD: Atraumatic. Normocephalic. EYES: No scleral icterus. No injection or drainage. ENT: Mucous membranes dry. NECK: Trachea midline. Supple. CARDIOVASCULAR: Regular rate and rhythm. No murmur appreciated. RESPIRATORY: Breath sounds equal bilaterally. Scattered rhonchi bilaterally, no wheezing GASTROINTESTINAL: Abdomen soft, non-tender, nondistended. Hepatic and splenic margins not palpable. MUSCULOSKELETAL: No obvious deformities. No clubbing. No cyanosis. No edema. NEUROLOGICAL: Awake and alert, oriented to person only. No focal deficits Procedures central line placement. A/P Assessment and Plan NEURO: Acute metabolic encephalopathy/CO2 narcosis Probable seizures History of dementia - Received loading dose of Cerebyx and scheduled Cerebyx starting yesterday. EEG and neurology consult are pending at this time - Check Dilantin level in a.m. - Continue Seroquel. - Continue home medications of Aricept, sertraline and when necessary Xanax RESP: Acute hypoxemic and hypercarbic respiratory failure-resolved Healthcare associated pneumonia Acute COPD exacerbation - Extubated 07/28/17 tolerating well - DuoNeb every 6 hours and when necessary, Spiriva, Symbicort started - Steroid tapered, currently on by mouth prednisone. O2 titrated down to nasal cannula - Broad-spectrum antibiotics with Zosyn - Pulmonology following for COPD CV: Septic shock-resolved Severe bradycardia-resolved - On admission Patient required epinephrine and atropine push for severe bradycardia and hypotension - Remains off all pressors. Currently on Lasix twice a day GI: -Was tolerating by mouth diet. : Acute kidney injury-resolved -Follow intake output, monitor and replete electrolytes, follow BUN/creatinine. ID: Healthcare associated pneumonia UTI-with lactobacillus -Switched from Zosyn to Augmentin HEME: - Monitor CBC, CMP, coags ENDO: Hyperglycemia - Sliding-scale insulin, HbA1c 6.1 - Electrolyte Replacement per protocol PROPH: - Bilateral lower extremity SCDs. Subcutaneous heparin, Famotidine LINES: - PIV Palliative care following to assist with deciding goals of therapy. Now DNR Consult [facility] to assume care in am 08/08/17 Pamela Lomas MD Aug 07, 2017 09:29
[2017-08-07] MEDS: ONDANSETRON HCL 4 MG/2 ML VIAL IV PUSH PRN (09:42)
[2017-08-07] MEDS: NYSTATIN SUSP 500,000 U/5 ML CUP SWISH-SWAL SCH ×3 (11:56→21:27)
--- NOTE | 2017-08-07 12:36 | EKG ---
Date Performed: 08/06/2017 Time Performed: 08:58:20 PTAGE: 76 years EKG: The underlying rhythm appears to be sinus with a chaotic supraventricular tachycardia with a rate of 137 Borderline ECG PREVIOUS TRACING 07/26/17 Since previous tracing, the chaotic atrial tachycardia is new. Clini surya correlation is recommended. DOCTOR: Mark Sabillon Interpretating Date/Time 08/07/2017 12:34:48
[2017-08-07] MEDS: VASOPRESSIN INJ 40 UNITS in DEXTROSE 5% IN WATER 100ML INJ 98 ML IV SCH ×2 (14:14)
[2017-08-07 15:27] LABS: AUTOMATED NEUTROPHIL # 11.9 TH/MM3 (1.8-7.7); BASOPHIL # 0.1 TH/MM3 (0-0.2); BASOPHIL % 0.8 % (0.0-2.0); EOSINOPHIL % 0.1 % (0.0-4.0); HEMATOCRIT 40.2 % (35.0-46.0); HEMO FLAGS DIFF FINAL; LYMPH % 8.9 % (9.0-44.0); LYMPHOCYTE # 1.3 TH/MM3 (1.0-4.8); MEAN CELL VOLUME 93.8 FL (80.0-100.0); MEAN CORPUSCULAR HEMOGLOBIN 30.7 PG (27.0-34.0); MEAN CORPUSCULAR HGB CONC 32.7 % (32.0-36.0); MONO % 5.8 % (0.0-8.0); NEUT % 84.4 % (16.0-70.0); PLATELET COUNT 300 TH/MM3 (150-450); RED BLOOD COUNT 4.29 MIL/MM3 (4.00-5.30); RED CELL DISTRIBUTION WIDTH 15.6 % (11.6-17.2); WHITE BLOOD COUNT 14.1 TH/MM3 (4.0-11.0)
--- NOTE | 2017-08-07 15:33 | HHI.PR ---
Subjective Remarks In ICU for possible seizure. Now on o2 4 L. Not in respiratory distress. Now more alert and talking . Confused. Objective Vital Signs Date Time Temp Pulse Resp B/P (MAP) Pulse Ox O2 Delivery O2 Flow Rate FiO2 08/07/17 14:00 77 08/07/17 12:00 99.3 85 18 106/52 (70) 96 08/07/17 12:00 85 08/07/17 11:00 95 23 78/50 (59) 94 08/07/17 10:00 78 18 85/48 (60) 97 08/07/17 10:00 78 08/07/17 09:00 96 18 107/55 (72) 98 08/07/17 08:44 96 Nasal Cannula 4.00 08/07/17 08:00 90 08/07/17 08:00 98.0 90 18 136/64 (88) 99 08/07/17 07:00 99 Nasal Cannula 2.00 08/07/17 07:00 89 18 130/62 (84) 99 08/07/17 06:00 93 08/07/17 04:00 87 08/07/17 04:00 98.3 87 22 142/66 (91) 100 08/07/17 03:38 95 4.00 08/07/17 02:00 100 08/07/17 00:00 91 08/07/17 00:00 98.4 91 30 132/63 (86) 94 08/06/17 23:47 94 Nasal Cannula 5.00 08/06/17 22:00 94 08/06/17 20:09 94 Partial Rebreather 15.00 08/06/17 20:00 98.1 92 42 178/80 (112) 84 08/06/17 20:00 92 08/06/17 19:00 Nasal Cannula 4.00 98 08/06/17 18:00 85 08/06/17 16:00 98.2 116 22 125/58 (80) 90 08/06/17 16:00 116 I/O 08/06/17 08/06/17 08/06/17 08/07/17 08/07/17 08/07/17 07:00 15:00 23:00 07:00 15:00 23:00 Intake Total 240 ml 960 ml Output Total 1500 ml Balance 240 ml 960 ml -1500 ml Intake Oral 240 ml 960 ml Output Urine Total 1500 ml # Voids 5 # Bowel Movements 6 2 Result Diagram: 08/07/17 1430 08/06/17 1345 Procedures Endotracheal Intubation and Extubation Objective Remarks GENERAL: This averagely built elderly lady is in bed, pale and in no distress SKIN: Turgor is good.No lesions. HEENT: Head normocephalic. Pupils are reactive. Sclerae are clear. Tongue was dry. Throat thrush +. Nasal mucosa is clear. Ears - No inflammation. NECK: Supple. No bruits or thyroid enlargement. CHEST: Decreased breath sounds at the bases with basilar crackles. Occasional wheezes in the upper chest. HEART SOUNDS: Irregular S1 and S2. No murmur. No S3. ABDOMEN: Soft, protuberant. No mass. No organomegaly. EXTREMITIES: Decreased pulses with reflexes 1+ and the patient does move her extremities with no gross motor deficits.No edema. Assessment and Plan Assessment and Plan IMPRESSION 1. Hypoxemic, hypercapnic respiratory failure, resolved. 2. COPD with chronic bronchitis and emphysema with acute exacerbation. 3. Basilar pneumonia. 4. Metabolic encephalopathy. 5. Dementia. 6. Severe sepsis and lactic acidosis.Resolved 7. Acute kidney injury.Resolved 8. Pleural effusions. Plan : 1. IS at bedside q3h 2. Continue Duoneb nebs qid. 3. CBC ,BMP in am 4. O2 at 4 L N/C 5. PT Evaluation . 6. Cont lasix 20 mg IV daily 7. CBC ,CXR in am. 8. Cont Seroquel 25 mg bid 9. Cerebyx for seizure 10. Nystatin 10 CC tid for thrush swish, swallow. Romina Beebe MD Aug 07, 2017 15:33
[2017-08-07 15:53] LABS: ALKALINE PHOSPHATASE 63 U/L (45-117); ALT (GPT) 26 U/L (10-53); ANION GAP 6 MEQ/L (5-15); AST (GOT) 24 U/L (15-37); BICARBONATE 39.7 MEQ/L (21.0-32.0); BLOOD UREA NITROGEN 21 MG/DL (7-18); CHLORIDE 91 MEQ/L (98-107); GLOMERULAR FILTRATION RATE 46 ML/MIN (>89); POTASSIUM 3.7 MEQ/L (3.5-5.1); SODIUM (NA) 137 MEQ/L (136-145); TOTAL BILIRUBIN ADULT 0.7 MG/DL (0.2-1.0)
--- NOTE | 2017-08-07 21:26 | MG ---
cc: MIKE BRUNO M.D. Lab No: [id number] Date: 08/07/2017 Age: Sex: F Race: TECHNIQUE: 17 channel EEG. DESCRIPTION: The background rhythm reveals a generalized slowing in the theta frequency at 6 Hz. Amplitude is about 30-50 microvolts. No lateralizing features are seen. There is rare muscle artifact present. There are no epileptiform discharges present. Hyperventilation was not done. Photic results in a poor driving response. INTERPRETATION: Abnormal study consistent with a diffuse encephalopathy. MD ANANYA Cordoba/GABBY /9:22 PM /9:29 PM
[2017-08-07] MEDS: DONEPEZIL HCL 5 MG TAB PO SCH (21:27)
[2017-08-08] VITALS (11 sets, daily range): BP systolic 109–142; BP diastolic 53–85; PULSE 70–86; RESP 17–26; TEMP 96–99.2; O2SAT 92–98
[2017-08-08] MEDS: CHLORHEXIDINE GLUCONATE 2 % 1 PACK (2 CLOTHS) TOP SCH (04:00)
[2017-08-08] MEDS: DILTIAZEM HCL 30 MG TAB PO SCH ×3 (05:18→18:21)
[2017-08-08] MEDS: HEPARIN SODIUM - SQ 10,000 UNITS/ML VIAL SQ SCH ×3 (05:19→20:21)
[2017-08-08] MEDS: INSULIN NovoLIN REGULAR SUPPLEMENTAL SCALE SQ SCH ×4 (05:19→18:00)
--- NOTE | 2017-08-08 06:34 | MB ---
cc: MIKE BRUNO DATE OF CONSULTATION: 08/08/2017 REASON FOR CONSULTATION: Seizure. HISTORY OF PRESENT ILLNESS: Ms. Schmitz is a 76 year-old woman who admitted with respiratory insufficiency, sepsis. The patient had a generalized seizure yesterday, generalized tonic-clonic, was loaded with Cerebyx and is on maintenance Cerebyx. She has had no recurrent seizures. She has had no prior history of seizures. MEDICATIONS Current medications: 1. Diltiazem. 2. Nystatin. 3. Cerebyx 200 mg IV q.12 hours. 4. Lasix. 5. Amoxicillin. 6. Seroquel 25 mg b.i.d. 7. Potassium chloride. 8. Apresoline. 9. Aricept. 10. Spiriva. 11. Symbicort. 12. Zoloft 25 milligrams daily. 13. Vasopressin. NEUROLOGIC EXAMINATION Blood pressure is 89/49, pulse 81, respiratory rate 16, temperature 98.6 degrees. Higher cortical functions: She is alert. She follows commands. Neck is supple with no meningismus. Cranial nerves intact. Motor exam, there is no focal deficit noted. IMAGING STUDIES: CT of the brain shows atrophy, ischemic demyelinization, no acute change. Her EEG reveals signs of encephalopathy, no epileptiform discharges. LABORATORY DATA White count 14,100, hemoglobin 13.2, hematocrit 40%, platelet count 300,000. PT 11.1, INR 1, APTT 24.6. Sodium is 137, potassium 3.7, chloride 91, CO2 is 39.7. The BUN is 21, creatinine 1.15, GFR is 46. IMPRESSION Generalized seizure. RECOMMENDATIONS Continue Cerebyx. Will follow levels. MD ANANYA Cordoba/JUANA /10:16 PM /5:50 AM
[2017-08-08] MEDS: TIOTROPIUM BROMIDE 18 MCG INH INH SCH (08:40)
[2017-08-08] MEDS: FUROSEMIDE 20 MG/2 ML VIAL IV PUSH SCH (08:40)
[2017-08-08] MEDS: BUDESONIDE-FORMOTEROL 160/4.5 MCG INHALER INH SCH ×2 (08:40→20:25)
[2017-08-08] MEDS: FOSPHENYTOIN SODIUM 100 MG PE/2 ML VIAL IV SCH ×2 (08:40→20:19)
[2017-08-08] MEDS: SERTRALINE HCL 50 MG TAB PO SCH (08:41)
[2017-08-08] MEDS: AMOXICIL-CLAV 600 MG/5 ML LIQ 125 ML BTL PO SCH ×2 (08:41→20:18)
[2017-08-08] MEDS: POTASSIUM CHLORIDE 10 MEQ CONTROLLED RELEASE TAB PO SCH ×2 (08:41→20:24)
[2017-08-08] MEDS: ASPIRIN EC 81 MG TABEC PO SCH (08:41)
[2017-08-08] MEDS: guaiFENesin E.R. 600 MG TAB PO SCH ×2 (08:41→20:24)
[2017-08-08] MEDS: NYSTATIN SUSP 500,000 U/5 ML CUP SWISH-SWAL SCH ×4 (08:41→20:24)
[2017-08-08] MEDS: DOCUSATE SODIUM 50 MG/SENNA 8.6 MG TAB PO SCH ×2 (08:41→20:24)
[2017-08-08] MEDS: QUEtiapine FUMARATE 25 MG TAB PO SCH ×2 (08:44→11:34)
--- NOTE | 2017-08-08 14:53 | HHI.PR ---
Subjective Remarks sleeping but easily awaken and drift off per patient "ate my breakfast"- confirmed with nurse- po intake good- fed interactive and responds and answers, ff some simple commands appropriately when engaged in conversation denies any pain she stated her name telemetry- in SR in with the nurse and stated "I like your outfit where did you get that?" Objective Vitals Vital Signs Date Time Temp Pulse Resp B/P (MAP) Pulse Ox O2 Delivery O2 Flow Rate FiO2 08/08/17 12:00 97.6 84 21 130/85 (100) 96 08/08/17 12:00 84 08/08/17 09:00 76 22 121/59 (79) 96 08/08/17 08:00 98.9 80 19 142/65 (90) 98 08/08/17 08:00 74 08/08/17 07:00 97 Nasal Cannula 2.00 08/08/17 07:00 78 17 116/56 (76) 97 08/08/17 06:00 74 08/08/17 04:00 83 08/08/17 04:00 98.3 83 26 128/61 (83) 98 08/08/17 02:00 81 08/08/17 00:00 99.2 78 22 109/55 (73) 94 08/08/17 00:00 78 08/07/17 22:00 103 08/07/17 21:21 94 Nasal Cannula 3.00 08/07/17 20:00 82 08/07/17 20:00 99.3 82 18 90/50 (63) 98 08/07/17 19:00 97 Nasal Cannula 2.00 08/07/17 18:00 84 08/07/17 16:00 98.6 81 16 89/49 (62) 98 08/07/17 16:00 81 08/07/17 15:00 78 16 92/50 (64) 97 I/O 08/07/17 08/07/17 08/07/17 08/08/17 08/08/17 08/08/17 07:00 15:00 23:00 07:00 15:00 23:00 Intake Total 236 ml 240 ml 50 ml Output Total 1500 ml 250 ml 150 ml Balance -1500 ml -14 ml 90 ml 50 ml Intake Oral 236 ml 240 ml IV Total 50 ml Output Urine Total 1500 ml 250 ml 150 ml # Bowel Movements 0 0 Result Diagram: 08/07/17 1430 08/08/17 0420 Imaging Last Impressions Chest X-Ray 08/06/17 0600 Signed Impressions: Service Date/Time: Sunday, August 06, 2017 06:52 - CONCLUSION: No significant change has occurred. Brian Park MD Head CT 08/06/17 0000 Signed Impressions: Service Date/Time: Sunday, August 06, 2017 09:19 - CONCLUSION: 1. Senescent changes with moderate periventricular small vessel ischemic white matter demyelination. 2. No acute intracranial abnormality or significant interval change. Alejandro Bergman MD Chest CT 07/29/17 1808 Signed Impressions: Service Date/Time: July 20:44 - CONCLUSION: 1. Bilateral kdxsf-og-fkagxbxo pleural effusions right greater than left. 2. Consolidation in the right lower lobe. 3. Mild cardiomegaly. Keaton Montalvo MD Objective Remarks easily awakens and able to engage in conversation when awakened- stated her name , ff commands anicteric, tongue- + thrush lungs- no rales or wheezes, decreased breath sounds regular rhythm abdomen- soft extremities- flexed Lower extremitiees sideways Procedures central line placement. Urinary Catheter: Yes Assessment to: Continue Canas insert reason: Prolonged Immobilization Date of Insertion: Aug 06, 2017 A/P Problem List: (1) Acute hypercapnic respiratory failure ICD Code: J96.02 - Acute respiratory failure with hypercapnia (2) Septic shock ICD Code: A41.9 - Sepsis, unspecified organism; R65.21 - Severe sepsis with septic shock (3) HCAP (healthcare-associated pneumonia) ICD Code: J18.9 - Pneumonia, unspecified organism (4) Urinary tract infection ICD Code: N39.0 - Urinary tract infection, site not specified Status: Acute (5) Acute kidney injury ICD Code: N17.9 - Acute kidney failure, unspecified Status: Acute (6) Hyperglycemia ICD Code: R73.9 - Hyperglycemia, unspecified Status: Acute (7) Hypothermia ICD Code: T68.XXXA - Hypothermia, initial encounter Status: Acute (8) Acute encephalopathy ICD Code: G93.40 - Encephalopathy, unspecified Assessment and Plan 76 years old female S/P new onset Seziure- 08/06 - Neurology ff on Cerebryx Acute Metabolic Encephalopathy/CO2 Narcosis underlying dementia by history- - continue Sertraline and Aricept. Acute Hypoxemic and Hypercarbic respiratory failure/Healthcare associated Pneumonia/COPD exacerbation/Basilar Pneumonia/ pulmonary edema Bilateral Pleural Effusions. Extubated 07/28/17, continue bronchodilator, Mucolytic and incentive spirometry/ discontinued - off steroids- DC 08/07 - on po Augmentin- S/P Septic Shock resolved/Severe Bradycardia/lactic acidosis- resolved. - on augmentin per Dr. Nino History of hypertension, some tachycardia -started on Cardizem 30 po qid- monitor Acute Kidney Injury Resolved - now with increasing creatinine - worsening renal functions- will DC Lasix and monitor - keep canas - gentle hydration diarrhea- resolved. Oral thrush- Nustatin 10 cc qid PT daily PROPH: - Bilateral lower extremity SCDs. Subcutaneous heparin. Discharge Planning code status: no code Problem Qualifiers (1) Urinary tract infection: (2) Hypothermia: Qualified Codes: T68.XXXA - Hypothermia, initial encounter Monika Frost MD Aug 08, 2017 14:53
[2017-08-08] MEDS: SODIUM CHLOR 0.9% 1000 ML INJ 1,000 ML IV SCH (16:00)
--- NOTE | 2017-08-08 17:04 | HHI.PR ---
Subjective Remarks She is off cerebyx. Now on o2 2 L. Not in respiratory distress. Now more alert and talking . Good output Objective Vital Signs Date Time Temp Pulse Resp B/P (MAP) Pulse Ox O2 Delivery O2 Flow Rate FiO2 08/08/17 16:00 96.0 86 22 123/62 (82) 92 08/08/17 12:00 97.6 84 21 130/85 (100) 96 08/08/17 12:00 84 08/08/17 09:00 76 22 121/59 (79) 96 08/08/17 08:00 98.9 80 19 142/65 (90) 98 08/08/17 08:00 74 08/08/17 07:00 97 Nasal Cannula 2.00 08/08/17 07:00 78 17 116/56 (76) 97 08/08/17 06:00 74 08/08/17 04:00 83 08/08/17 04:00 98.3 83 26 128/61 (83) 98 08/08/17 02:00 81 08/08/17 00:00 99.2 78 22 109/55 (73) 94 08/08/17 00:00 78 08/07/17 22:00 103 08/07/17 21:21 94 Nasal Cannula 3.00 08/07/17 20:00 82 08/07/17 20:00 99.3 82 18 90/50 (63) 98 08/07/17 19:00 97 Nasal Cannula 2.00 08/07/17 18:00 84 I/O 08/07/17 08/07/17 08/07/17 08/08/17 08/08/17 08/08/17 07:00 15:00 23:00 07:00 15:00 23:00 Intake Total 236 ml 240 ml 50 ml 236 ml Output Total 1500 ml 250 ml 150 ml 300 ml Balance -1500 ml -14 ml 90 ml 50 ml -64 ml Intake Oral 236 ml 240 ml 236 ml IV Total 50 ml Output Urine Total 1500 ml 250 ml 150 ml 300 ml # Bowel Movements 0 0 Result Diagram: 08/07/17 1430 08/08/17 0420 Procedures Endotracheal Intubation and Extubation Objective Remarks GENERAL: This averagely built elderly lady is in bed, pale and in no distress SKIN: Turgor is good.No lesions. HEENT: Head normocephalic. Pupils are reactive. Sclerae are clear. Tongue was dry. Throat thrush +. Nasal mucosa is clear. Ears - No inflammation. NECK: Supple. No bruits or thyroid enlargement. CHEST: Decreased breath sounds at the bases with occ basilar crackles. Occasional wheezes in the upper chest. HEART SOUNDS: Irregular S1 and S2. No murmur. No S3. ABDOMEN: Soft, protuberant. No mass. No organomegaly. EXTREMITIES: Decreased pulses with reflexes 1+ and the patient does move her extremities with no gross motor deficits.No edema. Assessment and Plan Assessment and Plan IMPRESSION 1. Hypoxemic, hypercapnic respiratory failure, resolved. 2. COPD with chronic bronchitis and emphysema with acute exacerbation. 3. Basilar pneumonia. 4. Metabolic encephalopathy. 5. Dementia. 6. Severe sepsis and lactic acidosis.Resolved 7. Acute kidney injury.Resolved 8. Pleural effusions. Plan : 1. IS at bedside q3h 2. Continue Duoneb nebs qid. 3.CXR in am 4. O2 at 2 L N/C 5. PT Evaluation . 6. D/C lasix 7. D/C Augmentin in am 8. Cont Seroquel 25 mg bid 9. Cerebyx for seizure 10. Nystatin 10 CC tid for thrush swish, swallow. Romina Beebe MD Aug 08, 2017 17:04
[2017-08-08] MEDS: DONEPEZIL HCL 5 MG TAB PO SCH (20:24)
[2017-08-09] VITALS (10 sets, daily range): BP systolic 99–136; BP diastolic 54–61; PULSE 63–95; RESP 18–20; TEMP 97.9–99; O2SAT 92–96
[2017-08-09] MEDS: CHLORHEXIDINE GLUCONATE 2 % 1 PACK (2 CLOTHS) TOP SCH (03:00)
[2017-08-09] MEDS: HEPARIN SODIUM - SQ 10,000 UNITS/ML VIAL SQ SCH ×3 (03:07→20:15)
[2017-08-09] MEDS: INSULIN NovoLIN REGULAR SUPPLEMENTAL SCALE SQ SCH ×4 (05:00→17:40)
[2017-08-09] MEDS: DILTIAZEM HCL 30 MG TAB PO SCH ×4 (05:06→17:35)
--- NOTE | 2017-08-09 07:15 | RADRPT ---
EXAM DATE/TIME: 08/09/2017 06:03 [place] COMPARISON: CHEST SINGLE AP, August 06, 2017, 10:44. INDICATIONS : Short of breath, evaluate effusion MEDICAL HISTORY : Hypertension. Cardiovascular disease. SURGICAL HISTORY : None. ENCOUNTER: Subsequent ACUITY: 1 week PAIN SCORE: Non-responsive. LOCATION: Bilateral chest FINDINGS: Improving lung aeration is noted. There is persistent opacity at the right base characteristic of sma ll to moderate effusion and underlying airspace disease. Minimal airspace disease in the left base is clearing. Heart and mediastinal structures are stable. CONCLUSION: Improving lung aeration Persistent right pleural effusion. Clearing left airspace disease. Irving Vallejo MD on August 09, 2017 at 7:11 Board Certified Radiologist. This report was verified electronically.
[2017-08-09] MEDS: NYSTATIN SUSP 500,000 U/5 ML CUP SWISH-SWAL SCH ×4 (08:41→20:14)
[2017-08-09] MEDS: ASPIRIN EC 81 MG TABEC PO SCH (08:41)
[2017-08-09] MEDS: SERTRALINE HCL 50 MG TAB PO SCH (08:41)
[2017-08-09] MEDS: DOCUSATE SODIUM 50 MG/SENNA 8.6 MG TAB PO SCH ×2 (08:41→20:16)
[2017-08-09] MEDS: guaiFENesin E.R. 600 MG TAB PO SCH ×2 (08:42→20:16)
[2017-08-09] MEDS: QUEtiapine FUMARATE 25 MG TAB PO SCH ×2 (08:42→12:31)
[2017-08-09] MEDS: POTASSIUM CHLORIDE 10 MEQ CONTROLLED RELEASE TAB PO SCH ×2 (08:45→20:15)
[2017-08-09] MEDS: AMOXICIL-CLAV 600 MG/5 ML LIQ 125 ML BTL PO SCH (08:55)
[2017-08-09] MEDS: SODIUM CHLOR 0.9% 1000 ML INJ 1,000 ML IV SCH (08:55)
[2017-08-09] MEDS: TIOTROPIUM BROMIDE 18 MCG INH INH SCH (08:59)
[2017-08-09] MEDS: BUDESONIDE-FORMOTEROL 160/4.5 MCG INHALER INH SCH ×2 (08:59→20:18)
--- NOTE | 2017-08-09 09:23 | HHI.PR ---
Subjective Remarks pleasant and cooperative ate very well feels "wonderful" when d/w taking foly out- "you can" Objective Vitals Vital Signs Date Time Temp Pulse Resp B/P (MAP) Pulse Ox O2 Delivery O2 Flow Rate FiO2 08/09/17 09:11 Nasal Cannula 1.50 08/09/17 05:01 98.6 77 18 136/61 (86) 94 08/09/17 00:00 99.0 82 20 122/59 (80) 92 08/08/17 22:04 Nasal Cannula 1.50 08/08/17 20:37 75 08/08/17 20:00 98.2 70 20 115/53 (73) 93 08/08/17 19:45 1.00 08/08/17 16:00 96.0 86 22 123/62 (82) 92 08/08/17 12:00 97.6 84 21 130/85 (100) 96 08/08/17 12:00 84 I/O 08/08/17 08/08/17 08/08/17 08/09/17 08/09/17 08/09/17 07:00 15:00 23:00 07:00 15:00 23:00 Intake Total 240 ml 50 ml 236 ml 718 ml Output Total 150 ml 300 ml 400 ml Balance 90 ml 50 ml -64 ml 318 ml Intake Oral 240 ml 236 ml IV Total 50 ml 718 ml Output Urine Total 150 ml 300 ml 400 ml # Bowel Movements 0 Result Diagram: 08/07/17 1430 08/08/17 0420 Imaging Last Impressions Chest X-Ray 08/09/17 0600 Signed Impressions: Service Date/Time: Wednesday, August 09, 2017 06:03 - CONCLUSION: Improving lung aeration Persistent right pleural effusion. Clearing left airspace disease. Irving Vallejo MD Head CT 08/06/17 0000 Signed Impressions: Service Date/Time: Sunday, August 06, 2017 09:19 - CONCLUSION: 1. Senescent changes with moderate periventricular small vessel ischemic white matter demyelination. 2. No acute intracranial abnormality or significant interval change. Alejandro Bergman MD Chest CT 07/29/17 1808 Signed Impressions: Service Date/Time: July 20:44 - CONCLUSION: 1. Bilateral hydml-mg-aebrvlik pleural effusions right greater than left. 2. Consolidation in the right lower lobe. 3. Mild cardiomegaly. Keaton Montalvo MD Objective Remarks awle amnd alert, speech clear, very interactive anicteric lungs- no rales or wheezes, decreased breath sounds regular rhythm abdomen- soft extremities- no edema Procedures central line placement. Urinary Catheter: Yes Assessment to: Continue Canas insert reason: Measure Accurate Output Date of Insertion: Aug 06, 2017 A/P Problem List: (1) Acute hypercapnic respiratory failure ICD Code: J96.02 - Acute respiratory failure with hypercapnia (2) Septic shock ICD Code: A41.9 - Sepsis, unspecified organism; R65.21 - Severe sepsis with septic shock (3) HCAP (healthcare-associated pneumonia) ICD Code: J18.9 - Pneumonia, unspecified organism (4) Urinary tract infection ICD Code: N39.0 - Urinary tract infection, site not specified Status: Acute (5) Acute kidney injury ICD Code: N17.9 - Acute kidney failure, unspecified Status: Acute (6) Hyperglycemia ICD Code: R73.9 - Hyperglycemia, unspecified Status: Acute (7) Hypothermia ICD Code: T68.XXXA - Hypothermia, initial encounter Status: Acute (8) Acute encephalopathy ICD Code: G93.40 - Encephalopathy, unspecified Assessment and Plan 76 years old female S/P new onset Seziure- 08/06 - Neurology ff on Cerebryx- change to po Phenytoin Acute Metabolic Encephalopathy/CO2 Narcosis underlying dementia by history- - continue Sertraline and Aricept. Acute Hypoxemic and Hypercarbic respiratory failure/Healthcare associated Pneumonia/COPD exacerbation/Basilar Pneumonia/ pulmonary edema- Resolved Bilateral Pleural Effusions. Extubated 07/28/17, continue bronchodilator, Mucolytic and incentive spirometry/ discontinued - off steroids- DC 08/07 - on po Augmentin- S/P Septic Shock resolved/Severe Bradycardia/lactic acidosis- resolved. - on augmentin per Dr. Nino History of hypertension, some tachycardia- HR improved -started on Cardizem 30 po qid- monitor Acute Kidney Injury Resolved - now with increasing creatinine - worsening renal functions- will DC Lasix and monitor - keep canas for now- repeat BMP - gentle hydration diarrhea- resolved. PT consult- out of bed to chair PT daily PROPH: - Bilateral lower extremity SCDs. Subcutaneous heparin. Discharge Planning code status: no code Problem Qualifiers (1) Urinary tract infection: (2) Hypothermia: Qualified Codes: T68.XXXA - Hypothermia, initial encounter Monika Frost MD Aug 09, 2017 09:23
[2017-08-09] MEDS: FOSPHENYTOIN SODIUM 100 MG PE/2 ML VIAL IV SCH (09:35)
[2017-08-09 11:15] LABS: BICARBONATE 40.8 MEQ/L (21.0-32.0); POTASSIUM 3.4 MEQ/L (3.5-5.1)
[2017-08-09] MEDS ORDERED: POTASSIUM CHLORIDE 10 MEQ CONTROLLED RELEASE TAB PO ONE (15:45)
--- NOTE | 2017-08-09 19:37 | HHI.PR ---
Subjective Remarks She is doing better. Now on o2 2 L. Renal profile worse. Objective Vital Signs Date Time Temp Pulse Resp B/P (MAP) Pulse Ox O2 Delivery O2 Flow Rate FiO2 08/09/17 16:11 93 08/09/17 16:00 97.9 67 18 125/60 (81) 96 08/09/17 12:50 66 08/09/17 12:00 98.6 74 18 122/58 (79) 96 08/09/17 09:11 Nasal Cannula 1.50 08/09/17 08:36 74 08/09/17 08:00 Nasal Cannula 1.50 08/09/17 08:00 98.0 74 18 99/54 (69) 92 08/09/17 05:01 98.6 77 18 136/61 (86) 94 08/09/17 00:00 99.0 82 20 122/59 (80) 92 08/08/17 22:04 Nasal Cannula 1.50 08/08/17 20:37 75 08/08/17 20:00 98.2 70 20 115/53 (73) 93 08/08/17 19:45 1.00 I/O 08/08/17 08/08/17 08/08/17 08/09/17 08/09/17 08/09/17 07:00 15:00 23:00 07:00 15:00 23:00 Intake Total 240 ml 50 ml 236 ml 718 ml Output Total 150 ml 300 ml 400 ml 400 ml Balance 90 ml 50 ml -64 ml 318 ml -400 ml Intake Oral 240 ml 236 ml IV Total 50 ml 718 ml Output Urine Total 150 ml 300 ml 400 ml 400 ml # Bowel Movements 0 0 Result Diagram: 08/07/17 1430 08/09/17 1026 Procedures Endotracheal Intubation and Extubation Objective Remarks GENERAL: This averagely built elderly lady is in bed, pale and in no distress SKIN: Turgor is good.No lesions. HEENT: Head normocephalic. Pupils are reactive. Sclerae are clear. Tongue was dry. Nasal mucosa is clear. Ears - No inflammation. NECK: Supple. No bruits or thyroid enlargement. CHEST: Decreased breath sounds at the bases with occ basilar crackles. Occasional wheezes . HEART SOUNDS: Irregular S1 and S2. No murmur. No S3. ABDOMEN: Soft, protuberant. No mass. No organomegaly. EXTREMITIES: Decreased pulses with reflexes 1+ and the patient does move her extremities with no gross motor deficits.No edema. Assessment and Plan Assessment and Plan IMPRESSION 1. Hypoxemic, hypercapnic respiratory failure, resolved. 2. COPD with chronic bronchitis and emphysema with acute exacerbation. 3. Basilar pneumonia. 4. Metabolic encephalopathy. 5. Dementia. 6. Severe sepsis and lactic acidosis.Resolved 7. Acute kidney injury.Resolved 8. Pleural effusions. Plan : 1. IS at bedside q3h 2. Continue Duoneb nebs qid. 3. BMP 4. O2 at 2 L N/C 5. PT Evaluation . 6. D/C lasix 7. D/C Augmentin 8. Cont Seroquel 25 mg bid 9. Nystatin 10 CC tid for thrush swish, swallow. Romina Beebe MD Aug 09, 2017 19:37
[2017-08-09] MEDS: DONEPEZIL HCL 5 MG TAB PO SCH (20:15)
[2017-08-09] MEDS: PHENYTOIN SODIUM 100 MG CAP PO SCH (20:16)
[2017-08-10] VITALS: BP 137/96; PULSE 112; RESP 18; TEMP 98.2; O2SAT 95
[2017-08-10] MEDS: DILTIAZEM HCL 30 MG TAB PO SCH ×2 (00:29→05:50)
[2017-08-10] MEDS: SODIUM CHLOR 0.9% 1000 ML INJ 1,000 ML IV SCH (00:30)
[2017-08-10 04:00] VITALS: BP 149/68; PULSE 74; RESP 18; TEMP 98; O2SAT 98
[2017-08-10] MEDS: CHLORHEXIDINE GLUCONATE 2 % 1 PACK (2 CLOTHS) TOP SCH (04:00)
[2017-08-10] MEDS: HEPARIN SODIUM - SQ 10,000 UNITS/ML VIAL SQ SCH (05:36)
[2017-08-10] MEDS: INSULIN NovoLIN REGULAR SUPPLEMENTAL SCALE SQ SCH ×2 (05:49)
[2017-08-10 08:02] VITALS: BP 147/70; PULSE 68; RESP 19; TEMP 98.3; O2SAT 97
[2017-08-10] MEDS: SERTRALINE HCL 50 MG TAB PO SCH (08:35)
[2017-08-10] MEDS: PHENYTOIN SODIUM 100 MG CAP PO SCH (08:35)
[2017-08-10] MEDS: ASPIRIN EC 81 MG TABEC PO SCH (08:35)
[2017-08-10] MEDS: DOCUSATE SODIUM 50 MG/SENNA 8.6 MG TAB PO SCH (08:36)
[2017-08-10] MEDS: guaiFENesin E.R. 600 MG TAB PO SCH (08:36)
[2017-08-10] MEDS: BUDESONIDE-FORMOTEROL 160/4.5 MCG INHALER INH SCH (08:36)
[2017-08-10] MEDS: TIOTROPIUM BROMIDE 18 MCG INH INH SCH (08:36)
[2017-08-10] MEDS: QUEtiapine FUMARATE 25 MG TAB PO SCH (08:36)
[2017-08-10] MEDS: POTASSIUM CHLORIDE 10 MEQ CONTROLLED RELEASE TAB PO SCH (08:36)
[2017-08-10] MEDS: NYSTATIN SUSP 500,000 U/5 ML CUP SWISH-SWAL SCH (08:39)
[2017-08-10 09:03] LABS: AUTOMATED NEUTROPHIL # 7.4 TH/MM3 (1.8-7.7); BASOPHIL # 0.1 TH/MM3 (0-0.2); BASOPHIL % 1.1 % (0.0-2.0); EOSINOPHIL # 0.3 TH/MM3 (0-0.4); EOSINOPHIL % 2.3 % (0.0-4.0); HEMATOCRIT 37.8 % (35.0-46.0); HEMO FLAGS DIFF FINAL; LYMPH % 21.1 % (9.0-44.0); LYMPHOCYTE # 2.4 TH/MM3 (1.0-4.8); MEAN CELL VOLUME 94.2 FL (80.0-100.0); MEAN CORPUSCULAR HEMOGLOBIN 29.8 PG (27.0-34.0); MEAN CORPUSCULAR HGB CONC 31.6 % (32.0-36.0); MONO % 10.8 % (0.0-8.0); NEUT % 64.7 % (16.0-70.0); PLATELET COUNT 257 TH/MM3 (150-450); RED BLOOD COUNT 4.01 MIL/MM3 (4.00-5.30); RED CELL DISTRIBUTION WIDTH 15.6 % (11.6-17.2); WHITE BLOOD COUNT 11.4 TH/MM3 (4.0-11.0)
--- NOTE | 2017-08-10 09:27 | HHI.PR ---
Subjective Remarks awake and alert, interactive goo po appetite Objective Vitals Vital Signs Date Time Temp Pulse Resp B/P (MAP) Pulse Ox O2 Delivery O2 Flow Rate FiO2 08/10/17 08:02 98.3 68 19 147/70 (95) 97 08/10/17 04:00 98.0 74 18 149/68 (95) 98 08/10/17 00:00 98.2 112 18 137/96 (110) 95 08/09/17 20:03 95 08/09/17 20:00 Nasal Cannula 2.00 08/09/17 20:00 98.4 63 18 113/59 (77) 95 08/09/17 16:11 93 08/09/17 16:00 97.9 67 18 125/60 (81) 96 08/09/17 12:50 66 08/09/17 12:00 98.6 74 18 122/58 (79) 96 I/O 08/09/17 08/09/17 08/09/17 08/10/17 08/10/17 08/10/17 07:00 15:00 23:00 07:00 15:00 23:00 Intake Total 718 ml 120 ml Output Total 400 ml 400 ml Balance 318 ml -400 ml 120 ml Intake Oral 120 ml IV Total 718 ml Output Urine Total 400 ml 400 ml # Voids 3 # Bowel Movements 0 1 Result Diagram: 08/10/17 0735 08/09/17 1026 Imaging Last Impressions Chest X-Ray 08/09/17 0600 Signed Impressions: Service Date/Time: Wednesday, August 09, 2017 06:03 - CONCLUSION: Improving lung aeration Persistent right pleural effusion. Clearing left airspace disease. Irving Vallejo MD Head CT 08/06/17 0000 Signed Impressions: Service Date/Time: Sunday, August 06, 2017 09:19 - CONCLUSION: 1. Senescent changes with moderate periventricular small vessel ischemic white matter demyelination. 2. No acute intracranial abnormality or significant interval change. Alejandro Bergman MD Chest CT 07/29/17 1808 Signed Impressions: Service Date/Time: July 20:44 - CONCLUSION: 1. Bilateral wggss-xn-cbnkeqbx pleural effusions right greater than left. 2. Consolidation in the right lower lobe. 3. Mild cardiomegaly. Keaton Montalvo MD Objective Remarks awake and alert, speech clear, very interactive, oriented x 3 anicteric lungs- no rales or wheezes, decreased breath sounds regular rhythm abdomen- soft extremities- no edema moves all extremities spontaenously Procedures central line placement. Date of Insertion: Aug 06, 2017 Date of Removal: Aug 09, 2017 A/P Problem List: (1) Acute hypercapnic respiratory failure ICD Code: J96.02 - Acute respiratory failure with hypercapnia (2) Septic shock ICD Code: A41.9 - Sepsis, unspecified organism; R65.21 - Severe sepsis with septic shock (3) HCAP (healthcare-associated pneumonia) ICD Code: J18.9 - Pneumonia, unspecified organism (4) Urinary tract infection ICD Code: N39.0 - Urinary tract infection, site not specified Status: Acute (5) Acute kidney injury ICD Code: N17.9 - Acute kidney failure, unspecified Status: Acute (6) Hyperglycemia ICD Code: R73.9 - Hyperglycemia, unspecified Status: Acute (7) Hypothermia ICD Code: T68.XXXA - Hypothermia, initial encounter Status: Acute (8) Acute encephalopathy ICD Code: G93.40 - Encephalopathy, unspecified Assessment and Plan 76 years old female S/P new onset Seziure- 08/06 - Neurology ff on Cerebryx- change to po Phenytoin 08/09- Acute Metabolic Encephalopathy/CO2 Narcosis underlying dementia by history- - continue Sertraline and Aricept. Acute Hypoxemic and Hypercarbic respiratory failure/Healthcare associated Pneumonia/COPD exacerbation/Basilar Pneumonia/ pulmonary edema- Resolved Bilateral Pleural Effusions. Extubated 07/28/17, continue bronchodilator, Mucolytic and incentive spirometry/ discontinued - off steroids- DC 08/07 - on po Augmentin- - cleared by Pulmonary for DC- OP ff up S/P Septic Shock resolved/Severe Bradycardia/lactic acidosis- resolved. History of hypertension, some tachycardia- HR improved -started on Cardizem 30 po qid- monitor Acute Kidney Injury Resolved - will DC Lasix and monitor - BMP improved - gentle hydration diarrhea- resolved. Oral thrush- on Nystatin 10 cc qid PT consult- out of bed to chair PROPH: - Bilateral lower extremity SCDs. Subcutaneous heparin. Discharge Planning code status: no code Problem Qualifiers (1) Urinary tract infection: (2) Hypothermia: Qualified Codes: T68.XXXA - Hypothermia, initial encounter Monika Frost MD Aug 10, 2017 09:27
--- NOTE | 2017-08-10 09:28 | HHI.PR ---
Subjective Remarks She is doing better. Able to take a soft diet. Still on o2 2 L. Renal profile stable Objective Vital Signs Date Time Temp Pulse Resp B/P (MAP) Pulse Ox O2 Delivery O2 Flow Rate FiO2 08/10/17 08:02 98.3 68 19 147/70 (95) 97 08/10/17 04:00 98.0 74 18 149/68 (95) 98 08/10/17 00:00 98.2 112 18 137/96 (110) 95 08/09/17 20:03 95 08/09/17 20:00 Nasal Cannula 2.00 08/09/17 20:00 98.4 63 18 113/59 (77) 95 08/09/17 16:11 93 08/09/17 16:00 97.9 67 18 125/60 (81) 96 08/09/17 12:50 66 08/09/17 12:00 98.6 74 18 122/58 (79) 96 I/O 08/09/17 08/09/17 08/09/17 08/10/17 08/10/17 08/10/17 07:00 15:00 23:00 07:00 15:00 23:00 Intake Total 718 ml 120 ml Output Total 400 ml 400 ml Balance 318 ml -400 ml 120 ml Intake Oral 120 ml IV Total 718 ml Output Urine Total 400 ml 400 ml # Voids 3 # Bowel Movements 0 1 Result Diagram: 08/10/17 0735 08/09/17 1026 Procedures Endotracheal Intubation and Extubation Objective Remarks GENERAL: This averagely built elderly lady is in bed, pale and in no distress SKIN: Turgor is good.No lesions. HEENT: Head normocephalic. Pupils are reactive. Sclerae are clear. Tongue was dry. Nasal mucosa is clear. Ears - No inflammation. NECK: Supple. No bruits or thyroid enlargement. CHEST: Decreased breath sounds at the bases with basilar crackles. No wheezes . HEART SOUNDS: Irregular S1 and S2. No murmur. No S3. ABDOMEN: Soft, protuberant. No mass. No organomegaly. EXTREMITIES: Decreased pulses with reflexes 1+ and the patient does move her extremities with no gross motor deficits.No edema. Assessment and Plan Assessment and Plan IMPRESSION 1. Hypoxemic, hypercapnic respiratory failure, resolved. 2. COPD with chronic bronchitis and emphysema with acute exacerbation. 3. Basilar pneumonia. 4. Metabolic encephalopathy. 5. Dementia. 6. Severe sepsis and lactic acidosis.Resolved 7. Acute kidney injury.Resolved 8. Pleural effusions. Plan : 1. IS at bedside q3h 2. Continue Duoneb nebs bid. 3. Replace potassium 4. O2 at 2 L N/C 5. PT Evaluation . 6. Soft diet. 7.Transfer to Home. 8. Cont Seroquel 25 mg bid 9. Will See as OP in 2 weeks Romina Beebe MD Aug 10, 2017 09:28
[2017-08-10 09:29] LABS: BICARBONATE 30.9 MEQ/L (21.0-32.0)
[2017-08-10] MEDS ORDERED: DILT31TA PO (09:37)
[2017-08-10] MEDS ORDERED: SERO25TA PO (09:37)
[2017-08-10] MEDS ORDERED: Budeson-Formot 160-4.5 Mg Inh INH (09:37)
[2017-08-10] MEDS ORDERED: Nystatin Liq SWISH-SWAL (09:37)
[2017-08-10] MEDS ORDERED: DILA100C PO (09:37)
--- NOTE | 2017-08-10 09:44 | HHI.DS ---
Discharge Summary Admission Date Jul 26, 2017 at 09:52 Discharge Date: Aug 10, 2017 Admitting Diagnosis respiratory failure with hypercapnia, sepsis, pneumonia, UTI, hyperg (1) Acute hypercapnic respiratory failure ICD Code: J96.02 - Acute respiratory failure with hypercapnia Diagnosis: Principal (2) Septic shock ICD Code: A41.9 - Sepsis, unspecified organism; R65.21 - Severe sepsis with septic shock Diagnosis: Principal (3) HCAP (healthcare-associated pneumonia) ICD Code: J18.9 - Pneumonia, unspecified organism Diagnosis: Principal (4) Urinary tract infection ICD Code: N39.0 - Urinary tract infection, site not specified Diagnosis: Secondary Status: Acute (5) Acute kidney injury ICD Code: N17.9 - Acute kidney failure, unspecified Diagnosis: Secondary Status: Acute (6) Hyperglycemia ICD Code: R73.9 - Hyperglycemia, unspecified Diagnosis: Secondary Status: Acute (7) Hypothermia ICD Code: T68.XXXA - Hypothermia, initial encounter Status: Acute (8) Acute encephalopathy ICD Code: G93.40 - Encephalopathy, unspecified Diagnosis: Secondary Procedures central line placement. Brief History - From Admission All history is obtained from ED chart review. Patient is intubated sedated. Patient is a 76-year-old female history of dementia, hypertension, hyperlipidemia, coronary artery disease, COPD, who presented from the halfway with decreased level of consciousness. Paramedics found her lethargic and obtunded, hypoxemic. She was placed on NRB placed a nonrebreather and brought to the ED. In the ED patient was unresponsive, SaO2 98-99%. She was taken off the nonrebreather and placed on a nasal cannula. ABG- pH of 7.041. PCO2 was 122 and PO2 was 94.5. Temp was 91.8 and Patient was placed on warming blanket, warm IVD fluids were initiated. She was intubated for severe hypercapnic respiratory failure. Her urinalysis shows evidence of a UTI and her chest x-ray shows probable pneumonia. Received Zosyn and azithromycin. Lactate was 5.6. [facility] requested to admit I evaluated the patent immediately in ICU. Patient was severely bradycardic, HR in mid 20s and blood pressure was not recordable, but had palpable pulse. No response to atropine. I ordered 0.5 mg epinephrine, IVF 3L boluses and Levophed started. Patients BP improved with above measures and I placed an emergent L subclavian central line. Her home medications and hypercapnic resp failure indicated COPD exacerbation in addition to septic shock. I have started IV steroids and will continue Vanc and Zosyn, scheduled and PRN DuoNeb. Also Minute ventilation adjusted to correct hypercapnia and severe acidosis CBC/BMP: 08/10/17 0735 08/10/17 0735 Significant Findings Laboratory Tests Test 08/07/17 14:30 08/08/17 04:20 08/09/17 10:26 08/10/17 07:35 White Blood Count 14.1 TH/MM3 (4.0-11.0) 11.4 TH/MM3 (4.0-11.0) Neutrophils (%) (Auto) 84.4 % (16.0-70.0) Lymphocytes (%) (Auto) 8.9 % (9.0-44.0) Neutrophils # (Auto) 11.9 TH/MM3 (1.8-7.7) Blood Urea Nitrogen 21 MG/DL (7-18) 23 MG/DL (7-18) Creatinine 1.15 MG/DL (0.50-1.00) 1.41 MG/DL (0.50-1.00) Albumin 3.2 GM/DL (3.4-5.0) Chloride Level 91 MEQ/L (98-107) 95 MEQ/L (98-107) Carbon Dioxide Level 39.7 MEQ/L (21.0-32.0) 40.8 MEQ/L (21.0-32.0) Estimat Glomerular Filtration Rate 46 ML/MIN (>89) 36 ML/MIN (>89) 57 ML/MIN (>89) 84 ML/MIN (>89) Random Glucose 141 MG/DL (74-106) Calcium Level 8.1 MG/DL (8.5-10.1) Potassium Level 3.4 MEQ/L (3.5-5.1) Mean Corpuscular Hemoglobin Concent 31.6 % (32.0-36.0) Monocytes (%) (Auto) 10.8 % (0.0-8.0) Monocytes # (Auto) 1.2 TH/MM3 (0-0.9) Imaging Last Impressions Chest X-Ray 08/09/17 0600 Signed Impressions: Service Date/Time: Wednesday, August 09, 2017 06:03 - CONCLUSION: Improving lung aeration Persistent right pleural effusion. Clearing left airspace disease. Irving Vallejo MD Head CT 08/06/17 0000 Signed Impressions: Service Date/Time: Sunday, August 06, 2017 09:19 - CONCLUSION: 1. Senescent changes with moderate periventricular small vessel ischemic white matter demyelination. 2. No acute intracranial abnormality or significant interval change. Alejandro Bergman MD Chest CT 07/29/17 1808 Signed Impressions: Service Date/Time: July 20:44 - CONCLUSION: 1. Bilateral acmxr-ge-aatznkhz pleural effusions right greater than left. 2. Consolidation in the right lower lobe. 3. Mild cardiomegaly. Keaton Montalvo MD PE at Discharge easily awakens and able to engage in conversation when awakened- stated her name , ff commands anicteric, tongue- + thrush lungs- no rales or wheezes, decreased breath sounds regular rhythm abdomen- soft extremities- flexed Lower extremitiees sideways Pt update on day of discharge awake and alert, interactive good po renal functions improved Hospital Course 76 years old female S/P new onset Seziure- 08/06 - Neurology ff on Cerebryx- change to po Phenytoin 08/09- Acute Metabolic Encephalopathy/CO2 Narcosis underlying dementia by history- - continue Sertraline and Aricept. Acute Hypoxemic and Hypercarbic respiratory failure/Healthcare associated Pneumonia/COPD exacerbation/Basilar Pneumonia/ pulmonary edema- Resolved Bilateral Pleural Effusions. Extubated 07/28/17, continue bronchodilator, Mucolytic and incentive spirometry/ discontinued - off steroids- DC 08/07 - on po Augmentin- - cleared by Pulmonary for DC- OP ff up S/P Septic Shock resolved/Severe Bradycardia/lactic acidosis- resolved. History of hypertension, some tachycardia- HR improved -started on Cardizem 30 po qid- monitor Acute Kidney Injury Resolved - off Lasix and monitor - BMP improved - gentle hydration diarrhea- resolved. Oral thrush- on Nystatin 10 cc qid PT consult- out of bed to chair PROPH: - Bilateral lower extremity SCDs. Subcutaneous heparin. Discharge Planning code status: no code Pt Condition on Discharge: Stable Discharge Disposition: Discharge to SNF Discharge Time: <= 30 minutes Discharge Instructions DIET: Follow Instructions for: As Tolerated, No Restrictions Speech Therapy-Diet Recommends: Pureed Additional Diet Instructions: pureed with thin liquids please feed patient- need full supervision and feeding Activities you can perform: Weight Bearing as Lalo, See Additionl Instruction Other Activity Instructions: PT daily Follow up Referrals: Pulmonology - 1 Week with Romina Beebe MD New Orders: COMP MET PROF (CMP) - 08/11/17 PHENYTOIN (DILANTIN) - 08/11/17 New Medications: Diltiazem (Cardizem) 30 Mg Tab 30 MG PO Q6HR for cardi for 30 Days, TAB Phenytoin Extended (Dilantin) 100 Mg Cap 200 MG PO Q12HR for SZ for 30 Days, #60 CAP Quetiapine (Seroquel) 25 Mg Tab 25 MG PO BID@09,12 for agit for 30 Days, #60 TAB [Budeson-Formot 160-4.5 Mg Inh] () pulm AERO 1 PUFF INH Q12HR for pulmo for 30 Days, #2 [Nystatin Liq] () 5 ML SUSP 5 ML SWISH-SWAL QID for thrush for 7 Days Continued Medications: Aspirin DR (Aspir-81) 81 Mg Tabdr 81 MG PO DAILY Donepezil (Donepezil) 10 Mg Tab 10 MG PO HS for Dementia, #30 TAB 0 Refills [place] 3 Fatty Bwmdl-Pclynx-Gchdywnslg ([facility]) 250-2.5-0.5 Mg Cap 1 CAP PO DAILY for Nutritional Supplement, CAP 0 Refills Sertraline (Zoloft) 25 Mg Tab 25 MG PO DAILY, #30 TAB 0 Refills Tiotropium Inh (Spiriva Handihaler) 18 Mcg Cap 18 MCG INH DAILY for COPD, #30 CAP 0 Refills 1 capsule = 18 mcg Discontinued Medications: Alprazolam (Alprazolam) 0.5 Mg Tab 0.5 MG PO Q8H PRN for ANXIETY, TAB 0 Refills Diltiazem CD 24 HR (Cardizem CD 24 HR) 240 Mg Caper 240 MG PO DAILY, #30 CAP 0 Refills Monika Frost MD Aug 10, 2017 09:44
[2017-08-10] MEDS ORDERED: KLOR10TA PO (09:49)
[2017-08-10] MEDS ORDERED: OXYGENDME NAS.CANULA (09:53)
== END 2017-08-10 12:04 | DRG 871 ==
LOC: NEPC 07:48 → NEDA 09:52 → HIMW 11:50 → N04A 08-02 21:48 → HIMW 08-06 09:30 → N04B 08-08 15:40
PROVIDERS: ADMIT Internal Medicine; ATTEND Internal Medicine
PROC: 5A1945Z Respiratory Ventilation, 24-96 Consecutive Hours (ICD-10-PCS; principal; 2017-07-26)
PROC: 0BH17EZ Insertion of Endotracheal Airway into Trachea, Via Natural or Artificial Opening (ICD-10-PCS; 2017-07-26)
PROC: 05H533Z Insertion of Infusion Device into Right Subclavian Vein, Percutaneous Approach (ICD-10-PCS; 2017-07-26)
DX: A41.9 Sepsis, unspecified organism (principal); J18.9 Pneumonia, unspecified organism; R65.21 Severe sepsis with septic shock; G93.41 Metabolic encephalopathy; J90 Pleural effusion, not elsewhere classified; J96.02 Acute respiratory failure with hypercapnia; J96.01 Acute respiratory failure with hypoxia; N17.9 Acute kidney failure, unspecified; G40.89 Other seizures; I46.9 Cardiac arrest, cause unspecified; E87.2 Acidosis; N39.0 Urinary tract infection, site not specified; J44.1 Chronic obstructive pulmonary disease with (acute) exacerbation; J44.0 Chronic obstructive pulmonary disease with (acute) lower respiratory infection; B37.0 Candidal stomatitis; E86.0 Dehydration; R73.9 Hyperglycemia, unspecified; G30.9 Alzheimer's disease, unspecified; I10 Essential (primary) hypertension; F02.80 Dementia in other diseases classified elsewhere, unspecified severity, without behavioral disturbance, psychotic disturbance, mood disturbance, and anxiety; E78.5 Hyperlipidemia, unspecified; Y95 Nosocomial condition; T68.XXXA Hypothermia, initial encounter; I25.10 Atherosclerotic heart disease of native coronary artery without angina pectoris; R00.1 Bradycardia, unspecified; Z87.01 Personal history of pneumonia (recurrent); Z87.440 Personal history of urinary (tract) infections; Z87.891 Personal history of nicotine dependence; Z51.5 Encounter for palliative care; Z66 Do not resuscitate; R19.7 Diarrhea, unspecified; F41.9 Anxiety disorder, unspecified; R47.02 Dysphasia
CPT/HCPCS: 31500; 36556; 36600; 70450; 71010; 71250; 76937; 80048; 80053; 80185; 81001; 82550; 82565; 82805; 82948; 83036; 83605; 83735; 84100; 84155; 84443; 84484; 85025; 85027; 85610; 85730; 87040; 87070; 87086; 87205; 87449; 87493; 87641; 93005; 93306; 94002; 94003; 94640; 94664; 95819; 96365; J0153; J0171; J0330; J0360; J0456; J0461; J1630; J1644; J1940; J2060; J2250; J2405; J2543; J2920; J2930; J3370; J7030; J7050; J7512; J7626; P9612; Q2009